=== PATIENT | male | born 1940 | race Caucasian/White ===

== ENCOUNTER 2019-02-01 20:05 | Inpatient (IN) | payer MEDICARE, OTHER ==
[2019-02-01] MEDS ORDERED: Midazolam HCl 2 mg/2 ml Vial ONE (20:44)
[2019-02-01] MEDS ORDERED: Fentanyl 100 MCG/2 ML VIAL ONE (20:44)
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
[2019-02-01] MEDS ORDERED: Lidocaine 1% (PF) 30 ML VIAL ONE (20:50)
--- NOTE | 2019-02-01 21:17 | RAD ---
Exam: Chest one view HISTORY:Pneumothorax. Subcutaneous emphysema. Comparison: 02/01/2019 FINDINGS: Interval placement of left-sided chest tube. Difficulty appreciating a left-sided hydropneumothorax. Persistent extensive subcutaneous emphysema. Stable pneumomediastinum. IMPRESSION: Left-sided chest tube placement.
[2019-02-01] MEDS ORDERED: Piperacillin/Tazobactam 4.5 GM VIAL ONE (21:21)
[2019-02-01] MEDS ORDERED: Ondansetron PF 4 MG/2 ML Vial IVP PRN (21:29)
[2019-02-01] MEDS ORDERED: Promethazine HCl 25 MG/ML VIAL IM PRN (21:29)
[2019-02-01] MEDS ORDERED: Dextrose 5% in Water 1,000 ML IV PRN (21:29)
[2019-02-01] MEDS ORDERED: Dextrose 50% Abboject 50 ML SYRINGE SLOW IVP PRN (21:29)
[2019-02-01] MEDS ORDERED: Famotidine/PF 20 mg/2ml Vial ONE (21:42)
[2019-02-01] MEDS ORDERED: Morphine 2 MG/ML SYRINGE ONE (21:42)
[2019-02-01] MEDS ORDERED: Famotidine/PF 20 mg/2ml Vial SLOW IVP SCH (21:45)
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
[2019-02-01] MEDS: Acetaminophen 1,000 MG in Premix Bag 1 BAG IVPB SCH (23:06)
[2019-02-01] MEDS: Sodium Chloride 0.9% 1,000 ML IV SCH (23:08)
[2019-02-01 23:32] LABS: Magnesium 1.9 mg/dL (1.6-2.6); Phosphorus 2.9 mg/dL (2.3-4.7)
[2019-02-02] MEDS: HumaLOG 300 UNITS/3 ML VIAL SC PRN ×3 (00:22→21:37)
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
[2019-02-02] MEDS: Piperacillin/Tazobactam 4.5 GM in Sodium Chloride 0.9% 100 ML IVPB SCH ×4 (02:50→21:32)
[2019-02-02] MEDS: Morphine 2 MG/ML SYRINGE SLOW IVP PRN ×2 (02:51→17:54)
[2019-02-02] MEDS: Acetaminophen 1,000 MG in Premix Bag 1 BAG IVPB SCH ×4 (04:08→21:59)
--- NOTE | 2019-02-02 07:25 | RAD ---
CHEST 1 VIEW: Date: 02/02/19 INDICATION: Pneumothorax. COMPARISON: Prior exam dated 02/01/19. FINDINGS: Small left apical hydropneumothorax appears to have resolved. No residual hydropneumothorax is eviden t. Small left pleural effusion remains. Right costophrenic angle is excluded. Mild pneumomediastinum persists. Dehiscence of midline sternotomy appears similar appearing. Extensive subcutaneous emphysem a involving the chest wall and neck base is stable. Cardiomegaly is stable. IMPRESSION: 1. No evidence of pneumothorax. Stable left-sided thoracostomy tube. 2. Persistent small left pleural effusion. 3. Stable cardiomegaly. 4. Stable subcutaneous emphysema. POS: BH
[2019-02-02 08:06] LABS: #Eosinphils 0.4 thou/uL (0.0-0.7); #Lymphocytes 1.7 thou/uL (1.20-3.40); #Monocytes 1.1 thou/uL (0.11-0.59); #Neutrophils 8.5 thou/uL (1.40-6.50); %Basophils 0.1 % (0.0-1.0); %Eosinophils 3.3 % (0.0-10.0); %Lymphocytes 14.3 % (21.0-51.0); %Monocytes 9.3 % (0.0-10.0); Hemoglobin 9.6 g/dL (14.0-18.0); Mean Corpuscular HGB CONC 32.9 g/dL (32.0-36.0); Mean Corpuscular Hemoglobin 30.2 pg (27.0-31.0); Mean Corpuscular Volume 91.8 fL (78.0-98.0); Mean Platelet Volume 7.3 fL (7.4-10.4); Platelet Count 318 thou/uL (130-400); RBC Distribution Width 13.8 % (11.5-14.5); Red Blood Cell (RBC) Count 3.16 mill/uL (4.70-6.10); White Blood Cell (WBC) Count 11.6 thou/uL (4.8-10.8)
[2019-02-02 08:22] LABS: Anion Gap 12 mmol/L (10-20); BUN (Urea Nitrogen) 16 mg/dL (8.4-25.7); Calc. Creatinine Clearance 121 mL/min (70-130); Calcium 8.7 mg/dL (7.8-10.44); Carbon Dioxide 25 mmol/L (23-31); Chloride 107 mmol/L (98-107); Estimated GFR-MDRD Greater than 90; Glucose 135 mg/dL (83-110); Magnesium 2.1 mg/dL (1.6-2.6); Phosphorus 3.6 mg/dL (2.3-4.7); Potassium 4.8 mmol/L (3.5-5.1); Sodium 139 mmol/L (136-145)
[2019-02-02] MEDS: Famotidine/PF 20 mg/2ml Vial SLOW IVP SCH ×2 (09:33→20:03)
[2019-02-02] MEDS: Sodium Chloride 0.9% 1,000 ML IV SCH (17:11)
[2019-02-02] MEDS ORDERED: Cyclobenzaprine 10 MG TAB PO PRN (18:22)
[2019-02-02] MEDS ORDERED: Ibuprofen 200 MG TAB PO SCH (18:30)
[2019-02-02] MEDS ORDERED: Cyclobenzaprine 10 MG TAB PO SCH (18:30)
[2019-02-02] MEDS: hydrALAZINE 20 MG/ML VIAL SLOW IVP PRN (18:37)
[2019-02-02] MEDS ORDERED: traMADol HCl 50 MG TAB PO SCH (18:45)
[2019-02-02 18:54] LABS: #Basophils 0.1 thou/uL (0.0-0.2); #Eosinphils 0.3 thou/uL (0.0-0.7); #Lymphocytes 1.6 thou/uL (1.20-3.40); #Neutrophils 9.6 thou/uL (1.40-6.50); %Basophils 0.6 % (0.0-1.0); %Eosinophils 2.3 % (0.0-10.0); %Lymphocytes 12.6 % (21.0-51.0); %Monocytes 7.8 % (0.0-10.0); %Neutrophils 76.8 % (42.0-75.0); Hemoglobin 9.9 g/dL (14.0-18.0); Mean Corpuscular HGB CONC 32.9 g/dL (32.0-36.0); Mean Corpuscular Hemoglobin 30.6 pg (27.0-31.0); Mean Corpuscular Volume 93.1 fL (78.0-98.0); Platelet Count 355 thou/uL (130-400); RBC Distribution Width 13.8 % (11.5-14.5); Red Blood Cell (RBC) Count 3.22 mill/uL (4.70-6.10); White Blood Cell (WBC) Count 12.6 thou/uL (4.8-10.8)
[2019-02-02] MEDS: Gabapentin 300 MG CAP PO SCH (20:02)
[2019-02-02] MEDS: Ibuprofen 200 MG TAB PO SCH (20:03)
[2019-02-02] MEDS: traMADol HCl 50 MG TAB PO PRN (23:46)
[2019-02-03] MEDS: Ibuprofen 200 MG TAB PO SCH ×3 (03:45→20:23)
[2019-02-03] MEDS: Acetaminophen 500 MG TAB PO SCH ×4 (03:45→21:07)
[2019-02-03] MEDS: Piperacillin/Tazobactam 4.5 GM in Sodium Chloride 0.9% 100 ML IVPB SCH ×4 (03:46→20:27)
[2019-02-03] MEDS: traMADol HCl 50 MG TAB PO PRN (04:28)
[2019-02-03 06:40] LABS: #Basophils 0.1 thou/uL (0.0-0.2); #Eosinphils 0.4 thou/uL (0.0-0.7); #Lymphocytes 1.4 thou/uL (1.20-3.40); #Neutrophils 7.1 thou/uL (1.40-6.50); %Basophils 0.5 % (0.0-1.0); %Eosinophils 4.2 % (0.0-10.0); %Lymphocytes 13.6 % (21.0-51.0); %Monocytes 10.1 % (0.0-10.0); %Neutrophils 71.5 % (42.0-75.0); Hemoglobin 9.4 g/dL (14.0-18.0); Mean Corpuscular HGB CONC 32.7 g/dL (32.0-36.0); Mean Corpuscular Hemoglobin 30.2 pg (27.0-31.0); Mean Corpuscular Volume 92.1 fL (78.0-98.0); Platelet Count 352 thou/uL (130-400); RBC Distribution Width 13.9 % (11.5-14.5); Red Blood Cell (RBC) Count 3.12 mill/uL (4.70-6.10); White Blood Cell (WBC) Count 9.9 thou/uL (4.8-10.8)
[2019-02-03 06:57] LABS: INR-International Normal Ratio 1.2; PTT 34.5 SEC (22.9-36.1); Prothrombin Time 15.4 SEC (12.0-14.7)
[2019-02-03 07:03] LABS: Anion Gap 14 mmol/L (10-20); BUN (Urea Nitrogen) 13 mg/dL (8.4-25.7); Calc. Creatinine Clearance 115 mL/min (70-130); Calcium 8.4 mg/dL (7.8-10.44); Carbon Dioxide 23 mmol/L (23-31); Chloride 105 mmol/L (98-107); Estimated GFR-MDRD Greater than 90; Glucose 137 mg/dL (83-110); Magnesium 1.9 mg/dL (1.6-2.6); Phosphorus 3.5 mg/dL (2.3-4.7); Potassium 3.8 mmol/L (3.5-5.1); Sodium 138 mmol/L (136-145)
--- NOTE | 2019-02-03 07:19 | RAD ---
CHEST 1 VIEW: Date: 02/03/19 INDICATION: Pneumothorax. COMPARISON: Prior exam dated 02/02/19. IMPRESSION: Left-sided thoracostomy tube is unchanged. No left-sided pneumothorax is evident. There is decreasing size of the left-sided pleural effusion. Pneumomediastinum appears mildly improved. Subcutaneous emp hysema persists. Right lung is clear. Cardiomegaly is stable. POS: BH
[2019-02-03] MEDS ORDERED: Furosemide 20 MG/2 ML VIAL SLOW IVP SCH (08:45)
[2019-02-03] MEDS: Amiodarone 200 MG TAB PO SCH ×2 (09:52→20:25)
[2019-02-03] MEDS: Tamsulosin HCl 0.4 MG CAP PO SCH ×2 (09:52→09:54)
[2019-02-03] MEDS: Atorvastatin Calcium 20 MG TAB PO SCH (09:52)
[2019-02-03] MEDS: Sotalol HCl 80 MG TAB PO SCH ×2 (09:53→20:25)
[2019-02-03] MEDS: Famotidine/PF 20 mg/2ml Vial SLOW IVP SCH ×2 (09:55→20:25)
[2019-02-03] MEDS: Gabapentin 300 MG CAP PO SCH ×3 (09:55→20:27)
[2019-02-03] MEDS: traMADol HCl 50 MG TAB PO SCH ×3 (09:56→20:26)
[2019-02-03] MEDS: HumaLOG 300 UNITS/3 ML VIAL SC PRN ×3 (13:00→21:01)
[2019-02-03] MEDS ORDERED: Digoxin 0.5 MG/2 ML AMP SLOW IVP SCH ×3 (16:45→20:15)
[2019-02-03 18:00] LABS: CKMB 2.8 ng/mL (0-6.6)
[2019-02-03] MEDS ORDERED: Magnesium 2 GM/50 ML 2 GM in Premix Bag 1 BAG IVPB SCH (18:00)
[2019-02-03] MEDS ORDERED: Albumin 25% 25 GM/100 ML BOT IVPB SCH (18:15)
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
[2019-02-03] MEDS: Amiodarone HCl 450 MG in Dextrose 5% in Water 250 ML IVPB SCH (19:39)
[2019-02-03] MEDS: Enoxaparin Sodium 40 MG/0.4 ML SYRINGE SC SCH (20:24)
[2019-02-03 20:39] LABS: Critical Call Chem Troponin I RESULT DECREASING
[2019-02-04] MEDS: Amiodarone HCl 450 MG in Dextrose 5% in Water 250 ML IVPB SCH ×2 (01:45→16:40)
[2019-02-04] MEDS: Piperacillin/Tazobactam 4.5 GM in Sodium Chloride 0.9% 100 ML IVPB SCH ×4 (03:13→21:05)
[2019-02-04] MEDS: Acetaminophen 500 MG TAB PO SCH ×4 (03:14→21:06)
[2019-02-04] MEDS: traMADol HCl 50 MG TAB PO SCH ×4 (03:15→21:05)
[2019-02-04] MEDS: Ibuprofen 200 MG TAB PO SCH ×3 (03:18→21:03)
[2019-02-04 04:39] LABS: INR-International Normal Ratio 1.3
[2019-02-04 04:40] LABS: PTT 41.1 SEC (22.9-36.1)
[2019-02-04 04:45] LABS: #Eosinphils 0.5 thou/uL (0.0-0.7); #Lymphocytes 1.7 thou/uL (1.20-3.40); #Monocytes 0.8 thou/uL (0.11-0.59); #Neutrophils 6.8 thou/uL (1.40-6.50); %Basophils 0.1 % (0.0-1.0); %Eosinophils 5.1 % (0.0-10.0); %Lymphocytes 17.5 % (21.0-51.0); %Monocytes 8.1 % (0.0-10.0); %Neutrophils 69.1 % (42.0-75.0); Hemoglobin 8.8 g/dL (14.0-18.0); Mean Corpuscular Hemoglobin 31.5 pg (27.0-31.0); Mean Corpuscular Volume 92.6 fL (78.0-98.0); Mean Platelet Volume 7.1 fL (7.4-10.4); Platelet Count 368 thou/uL (130-400); RBC Distribution Width 13.9 % (11.5-14.5); White Blood Cell (WBC) Count 9.9 thou/uL (4.8-10.8)
[2019-02-04 04:55] LABS: Anion Gap 12 mmol/L (10-20); BUN (Urea Nitrogen) 11 mg/dL (8.4-25.7); Calc. Creatinine Clearance 112 mL/min (70-130); Calcium 8.3 mg/dL (7.8-10.44); Carbon Dioxide 28 mmol/L (23-31); Chloride 103 mmol/L (98-107); Estimated GFR-MDRD Greater than 90; Glucose 137 mg/dL (83-110); Magnesium 2.1 mg/dL (1.6-2.6); Phosphorus 3.5 mg/dL (2.3-4.7); Potassium 3.7 mmol/L (3.5-5.1); Sodium 139 mmol/L (136-145)
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
[2019-02-04] MEDS ORDERED: Morphine 4 MG/ML VIAL ONE (08:28)
[2019-02-04] MEDS: Morphine 4 MG/ML VIAL SLOW IVP PRN (08:30)
--- NOTE | 2019-02-04 08:32 | RAD ---
CHEST 1 VIEW: Date: 02/04/19 HISTORY: Chest tube. Follow-up. COMPARISON: 02/03/19. FINDINGS: Cardiac silhouette is magnified by projection. Pulmonary vasculature remains slightly engorged. Media stinum is midline with postoperative changes and aortic calcification. Small amount of mediastinal ga s and extensive chest wall gas are again demonstrated. Left thoracostomy tubes remain in place. No si gnificant residual pneumothorax is apparent. property assessment monitor leads overlie the chest. IMPRESSION: Post-traumatic changes of the chest appear stable. POS: CET
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
[2019-02-04] MEDS: Amiodarone 200 MG TAB PO SCH ×2 (09:44→21:06)
[2019-02-04] MEDS ORDERED: Atorvastatin Calcium 40 MG TAB ONE (09:50)
[2019-02-04] MEDS ORDERED: Atorvastatin Calcium 20 MG TAB ONE (09:54)
[2019-02-04] MEDS ORDERED: Gabapentin 300 MG CAP ONE (09:55)
[2019-02-04] MEDS ORDERED: Piperacillin/Tazobactam 4.5 GM VIAL ONE (09:56)
[2019-02-04] MEDS ORDERED: Acetaminophen 500 MG TAB ONE (09:56)
[2019-02-04] MEDS: Gabapentin 300 MG CAP PO SCH ×3 (10:00→21:05)
[2019-02-04] MEDS: Atorvastatin Calcium 20 MG TAB PO SCH (10:00)
[2019-02-04] MEDS: Sotalol HCl 80 MG TAB PO SCH ×2 (10:29→21:04)
[2019-02-04] MEDS: Famotidine/PF 20 mg/2ml Vial SLOW IVP SCH ×2 (10:30→21:04)
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
[2019-02-04] MEDS: HumaLOG 300 UNITS/3 ML VIAL SC PRN (17:13)
[2019-02-04] MEDS: Enoxaparin Sodium 40 MG/0.4 ML SYRINGE SC SCH (21:04)
[2019-02-05] MEDS: Morphine 4 MG/ML VIAL SLOW IVP PRN ×3 (00:13→10:14)
[2019-02-05] MEDS: Piperacillin/Tazobactam 4.5 GM in Sodium Chloride 0.9% 100 ML IVPB SCH ×4 (03:23→20:40)
[2019-02-05] MEDS: traMADol HCl 50 MG TAB PO SCH ×4 (03:27→20:38)
[2019-02-05] MEDS: Acetaminophen 500 MG TAB PO SCH ×4 (03:27→21:07)
[2019-02-05] MEDS: Ibuprofen 200 MG TAB PO SCH ×3 (03:27→20:39)
[2019-02-05] MEDS ORDERED: Fentanyl 250 MCG/5 ML VIAL ONE (06:53)
[2019-02-05] MEDS ORDERED: Neomycin-Polymyxin 1 ML AMP ONE (06:57)
[2019-02-05] MEDS ORDERED: HYDROcodone/Acetaminophen 5/325 mg Tablet PO PRN (09:19)
[2019-02-05 09:44] LABS: #Eosinphils 0.8 thou/uL (0.0-0.7); #Lymphocytes 2.7 thou/uL (1.20-3.40); #Monocytes 1.2 thou/uL (0.11-0.59); #Neutrophils 13.2 thou/uL (1.40-6.50); %Basophils 0.1 % (0.0-1.0); %Eosinophils 4.6 % (0.0-10.0); %Lymphocytes 15.1 % (21.0-51.0); %Monocytes 6.4 % (0.0-10.0); %Neutrophils 73.8 % (42.0-75.0); Hemoglobin 9.9 g/dL (14.0-18.0); Mean Corpuscular HGB CONC 32.5 g/dL (32.0-36.0); Mean Corpuscular Hemoglobin 30.4 pg (27.0-31.0); Mean Corpuscular Volume 93.6 fL (78.0-98.0); Mean Platelet Volume 6.9 fL (7.4-10.4); Platelet Count 476 thou/uL (130-400); Red Blood Cell (RBC) Count 3.24 mill/uL (4.70-6.10); White Blood Cell (WBC) Count 17.9 thou/uL (4.8-10.8)
--- NOTE | 2019-02-05 09:48 | RAD ---
XR Chest 1 View Portable HISTORY: Post sternal reconstruction COMPARISON: 02/04/2019 FINDINGS: Interval postoperative changes of sternal reconstruction are seen. The left-sided chest tub e noted on the previous exam has been removed in the interim. A new tubing is seen in the left chest with tip in the projection of the left lower medial chest. There is subcutaneous emphysema in t he chest wall and extending into the neck. There is an opacity in the left lower lung base.
[2019-02-05] MEDS: hydrALAZINE 20 MG/ML VIAL SLOW IVP PRN (09:49)
[2019-02-05 09:56] LABS: Anion Gap 15 mmol/L (10-20); BUN (Urea Nitrogen) 11 mg/dL (8.4-25.7); Calc. Creatinine Clearance 105 mL/min (70-130); Calcium 8.4 mg/dL (7.8-10.44); Carbon Dioxide 24 mmol/L (23-31); Chloride 105 mmol/L (98-107); Estimated GFR-MDRD Greater than 90; Glucose 204 mg/dL (83-110); Potassium 4.1 mmol/L (3.5-5.1); Sodium 140 mmol/L (136-145)
[2019-02-05] MEDS ORDERED: ePHEDrine 50 MG/ML VIAL ONE (10:15)
[2019-02-05] MEDS ORDERED: Lidocaine 1% PF 5 ML VIAL ONE (10:15)
[2019-02-05] MEDS ORDERED: Dexamethasone 20 MG/5 ML VIAL ONE (10:15)
[2019-02-05] MEDS ORDERED: Ondansetron PF 4 MG/2 ML Vial ONE (10:15)
[2019-02-05] MEDS ORDERED: PROPOFOL 200 MG/20 ML VIAL ONE (10:15)
[2019-02-05] MEDS ORDERED: Rocuronium Bromide 10 MG/ML (10ML VIAL) ONE (10:15)
[2019-02-05] MEDS ORDERED: Glycopyrrolate 0.2 MG/ML 5 ML SYRINGE ONE (10:15)
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
[2019-02-05] MEDS: HumaLOG 300 UNITS/3 ML VIAL SC PRN ×4 (10:27→21:01)
[2019-02-05] MEDS: Famotidine/PF 20 mg/2ml Vial SLOW IVP SCH ×2 (11:46→20:40)
[2019-02-05] MEDS: HYDROcodone/Acetaminophen 5/325 mg Tablet PO PRN (11:53)
[2019-02-05] MEDS: Amiodarone 200 MG TAB PO SCH ×2 (11:53→20:39)
[2019-02-05] MEDS: Atorvastatin Calcium 20 MG TAB PO SCH (12:38)
[2019-02-05] MEDS: Sotalol HCl 80 MG TAB PO SCH ×2 (12:38→20:39)
[2019-02-05] MEDS: Gabapentin 300 MG CAP PO SCH ×3 (12:38→20:38)
[2019-02-05] MEDS: Tamsulosin HCl 0.4 MG CAP PO SCH (12:38)
[2019-02-05] MEDS: Enoxaparin Sodium 40 MG/0.4 ML SYRINGE SC SCH (20:40)
[2019-02-06] MEDS: HYDROcodone/Acetaminophen 5/325 mg Tablet PO PRN (00:38)
[2019-02-06] MEDS: traMADol HCl 50 MG TAB PO SCH ×4 (03:16→20:38)
[2019-02-06] MEDS: Ibuprofen 200 MG TAB PO SCH ×3 (03:16→20:37)
[2019-02-06] MEDS: Piperacillin/Tazobactam 4.5 GM in Sodium Chloride 0.9% 100 ML IVPB SCH ×4 (03:17→20:40)
[2019-02-06] MEDS: Acetaminophen 500 MG TAB PO SCH (03:20)
[2019-02-06 04:57] LABS: Anion Gap 13 mmol/L (10-20); BUN (Urea Nitrogen) 13 mg/dL (8.4-25.7); Calc. Creatinine Clearance 106 mL/min (70-130); Calcium 8.3 mg/dL (7.8-10.44); Carbon Dioxide 25 mmol/L (23-31); Chloride 104 mmol/L (98-107); Estimated GFR-MDRD Greater than 90; Glucose 196 mg/dL (83-110); Sodium 138 mmol/L (136-145)
[2019-02-06 05:14] LABS: Band 5 % (5-11); Hemoglobin 8.3 g/dL (14.0-18.0); Lymphocytes 10 % (21-51); MDiff Complete? YES; Mean Corpuscular HGB CONC 32.7 g/dL (32.0-36.0); Mean Corpuscular Hemoglobin 30.5 pg (27.0-31.0); Mean Corpuscular Volume 93.5 fL (78.0-98.0); Mean Platelet Volume 6.9 fL (7.4-10.4); Monocytes 3 % (0-10); Neutrophil 82 % (42-75); Platelet Count 470 thou/uL (130-400); Platelet Morphology Comment Appears Increased; RBC Distribution Width 13.7 % (11.5-14.5); White Blood Cell (WBC) Count 19.8 thou/uL (4.8-10.8)
[2019-02-06] MEDS: HumaLOG 300 UNITS/3 ML VIAL SC PRN ×4 (05:53→21:16)
--- NOTE | 2019-02-06 07:47 | RAD ---
EXAM: Single view of the chest HISTORY: Sternal reconstruction COMPARISON: 02/05/2019 FINDINGS: Single view of the chest shows an enlarged but stable cardiomediastinal silhouette. Patien t is status post sternotomy. There is no evidence of consolidation, mass, or pleural effusion. Degenerative changes and postsurgical changes are seen in the spine. IMPRESSION: Cardiomegaly without evidence of acute cardiopulmonary disease
[2019-02-06] MEDS ORDERED: Furosemide 40 MG/4 ML VIAL SLOW IVP SCH (09:00)
[2019-02-06] MEDS ORDERED: Labetalol HCl 100 MG/20 ML VIAL ONE (09:32)
[2019-02-06] MEDS: Amiodarone 200 MG TAB PO SCH ×2 (09:54→20:37)
[2019-02-06] MEDS: Atorvastatin Calcium 20 MG TAB PO SCH (09:54)
[2019-02-06] MEDS: Sotalol HCl 80 MG TAB PO SCH ×2 (09:54→20:39)
[2019-02-06] MEDS: Tamsulosin HCl 0.4 MG CAP PO SCH (09:54)
[2019-02-06] MEDS: Potassium Chloride 10 MEQ TAB PO SCH ×2 (09:54→18:11)
[2019-02-06] MEDS: Gabapentin 300 MG CAP PO SCH ×3 (09:54→20:39)
[2019-02-06] MEDS: Famotidine/PF 20 mg/2ml Vial SLOW IVP SCH ×2 (09:55→20:38)
[2019-02-06] MEDS: Furosemide 40 MG/4 ML VIAL SLOW IVP SCH (14:43)
--- NOTE | 2019-02-06 15:10 | EKG ---
Test Reason : Blood Pressure : / mmHG Vent. Rate : 147 BPM Atrial Rate : 138 BPM P-R Int : 000 ms QRS Dur : 090 ms QT Int : 280 ms P-R-T Axes : 000 005 125 degrees QTc Int : 438 ms Atrial fibrillation with rapid ventricular response Abnormal ECG Confirmed by TERESSA CHERY ([id number]) on 02/06/2019 3:09:56 PM Referred By: FANNIE Confirmed By:TERESSA CHERY
[2019-02-07] MEDS: Piperacillin/Tazobactam 4.5 GM in Sodium Chloride 0.9% 100 ML IVPB SCH ×4 (02:34→21:36)
[2019-02-07] MEDS: traMADol HCl 50 MG TAB PO SCH ×4 (03:27→21:37)
[2019-02-07] MEDS: Ibuprofen 200 MG TAB PO SCH ×3 (03:28→20:32)
[2019-02-07 05:04] LABS: #Basophils 0.1 thou/uL (0.0-0.2); #Eosinphils 1.6 thou/uL (0.0-0.7); #Lymphocytes 2.4 thou/uL (1.20-3.40); #Monocytes 1.4 thou/uL (0.11-0.59); #Neutrophils 12.9 thou/uL (1.40-6.50); %Basophils 0.3 % (0.0-1.0); %Eosinophils 8.9 % (0.0-10.0); %Lymphocytes 13.2 % (21.0-51.0); %Monocytes 7.4 % (0.0-10.0); %Neutrophils 70.1 % (42.0-75.0); Hemoglobin 8.9 g/dL (14.0-18.0); Mean Corpuscular HGB CONC 33.8 g/dL (32.0-36.0); Mean Corpuscular Hemoglobin 31.4 pg (27.0-31.0); Mean Platelet Volume 6.6 fL (7.4-10.4); Platelet Count 504 thou/uL (130-400); RBC Distribution Width 13.7 % (11.5-14.5); Red Blood Cell (RBC) Count 2.83 mill/uL (4.70-6.10); White Blood Cell (WBC) Count 18.4 thou/uL (4.8-10.8)
[2019-02-07] MEDS: HumaLOG 300 UNITS/3 ML VIAL SC PRN ×2 (05:16→12:13)
[2019-02-07] MEDS: Furosemide 40 MG/4 ML VIAL SLOW IVP SCH ×2 (05:16→14:39)
[2019-02-07] MEDS ORDERED: Metolazone 5 MG TAB PO SCH (06:30)
[2019-02-07] MEDS: Famotidine/PF 20 mg/2ml Vial SLOW IVP SCH ×2 (08:31→21:36)
[2019-02-07] MEDS: Atorvastatin Calcium 20 MG TAB PO SCH (08:33)
[2019-02-07] MEDS: Potassium Chloride 10 MEQ TAB PO SCH ×2 (08:33→17:35)
[2019-02-07] MEDS: Tamsulosin HCl 0.4 MG CAP PO SCH (08:33)
[2019-02-07] MEDS: Amiodarone 200 MG TAB PO SCH ×2 (08:33→21:36)
[2019-02-07] MEDS: Gabapentin 300 MG CAP PO SCH ×3 (08:33→21:36)
[2019-02-07] MEDS: Sotalol HCl 80 MG TAB PO SCH ×2 (10:33→21:52)
[2019-02-07] MEDS ORDERED: Dextrose 50% Abboject 50 ML SYRINGE SLOW IVP PRN (15:35)
[2019-02-07] MEDS ORDERED: Dextrose 5% in Water 1,000 ML IV PRN (15:35)
[2019-02-07] MEDS: Insulin Regular 300 UNITS/3 ML VIAL SC PRN ×2 (17:42→21:51)
[2019-02-08] MEDS: Piperacillin/Tazobactam 4.5 GM in Sodium Chloride 0.9% 100 ML IVPB SCH ×2 (03:20→08:25)
[2019-02-08] MEDS: traMADol HCl 50 MG TAB PO SCH ×2 (03:25→09:17)
[2019-02-08] MEDS: Ibuprofen 200 MG TAB PO SCH ×3 (03:44→20:57)
[2019-02-08] MEDS: Furosemide 40 MG/4 ML VIAL SLOW IVP SCH ×2 (05:37→13:54)
[2019-02-08] MEDS: Insulin Regular 300 UNITS/3 ML VIAL SC PRN ×4 (05:42→21:01)
[2019-02-08 06:20] LABS: #Eosinphils 1.2 thou/uL (0.0-0.7); #Lymphocytes 2.8 thou/uL (1.20-3.40); #Monocytes 1.4 thou/uL (0.11-0.59); %Basophils 0.1 % (0.0-1.0); %Eosinophils 6.9 % (0.0-10.0); %Lymphocytes 16.1 % (21.0-51.0); %Neutrophils 68.9 % (42.0-75.0); Hemoglobin 8.8 g/dL (14.0-18.0); Mean Corpuscular HGB CONC 32.9 g/dL (32.0-36.0); Mean Corpuscular Volume 91.3 fL (78.0-98.0); Mean Platelet Volume 6.9 fL (7.4-10.4); Platelet Count 505 thou/uL (130-400); RBC Distribution Width 13.8 % (11.5-14.5); Red Blood Cell (RBC) Count 2.92 mill/uL (4.70-6.10); White Blood Cell (WBC) Count 17.4 thou/uL (4.8-10.8)
[2019-02-08 06:28] LABS: Anion Gap 13 mmol/L (10-20); BUN (Urea Nitrogen) 23 mg/dL (8.4-25.7); Calc. Creatinine Clearance 71 mL/min (70-130); Calcium 8.9 mg/dL (7.8-10.44); Carbon Dioxide 33 mmol/L (23-31); Chloride 98 mmol/L (98-107); Estimated GFR-MDRD 58; Glucose 164 mg/dL (83-110); Potassium 3.5 mmol/L (3.5-5.1); Sodium 140 mmol/L (136-145)
[2019-02-08] MEDS ORDERED: Potassium Chloride 20 MEQ TAB PO SCH (08:00)
[2019-02-08] MEDS: Gabapentin 300 MG CAP PO SCH ×3 (08:23→20:57)
[2019-02-08] MEDS: Atorvastatin Calcium 20 MG TAB PO SCH (08:23)
[2019-02-08] MEDS: Famotidine 20 MG TAB PO SCH ×2 (08:23→20:56)
[2019-02-08] MEDS: Amiodarone 200 MG TAB PO SCH ×2 (08:23→20:56)
[2019-02-08] MEDS: Sotalol HCl 80 MG TAB PO SCH ×2 (08:24→23:28)
[2019-02-08] MEDS: Sulfameth/Trimethoprim DS 800-160mg TAB PO SCH ×2 (08:25→20:56)
[2019-02-08] MEDS: Tamsulosin HCl 0.4 MG CAP PO SCH (08:25)
[2019-02-08] MEDS ORDERED: Acetaminophen/Codeine 30-300mg Tablet PO PRN ×2 (14:14)
[2019-02-09] MEDS: Ibuprofen 200 MG TAB PO SCH ×3 (04:58→20:43)
[2019-02-09] MEDS: Insulin Regular 300 UNITS/3 ML VIAL SC PRN ×2 (05:04→10:39)
[2019-02-09] MEDS: Glimepiride 4 MG TAB PO SCH (08:42)
[2019-02-09] MEDS: Sulfameth/Trimethoprim DS 800-160mg TAB PO SCH ×2 (08:42→20:44)
[2019-02-09] MEDS: Sotalol HCl 80 MG TAB PO SCH ×2 (08:42→20:44)
[2019-02-09] MEDS: Amiodarone 200 MG TAB PO SCH ×2 (08:42→20:43)
[2019-02-09] MEDS: Tamsulosin HCl 0.4 MG CAP PO SCH (08:42)
[2019-02-09] MEDS: Gabapentin 300 MG CAP PO SCH ×3 (08:43→20:44)
[2019-02-09] MEDS: Famotidine 20 MG TAB PO SCH ×2 (08:43→20:44)
[2019-02-09] MEDS: Atorvastatin Calcium 20 MG TAB PO SCH (08:43)
[2019-02-10] MEDS: Ibuprofen 200 MG TAB PO SCH ×3 (03:34→21:12)
[2019-02-10] MEDS: Insulin Regular 300 UNITS/3 ML VIAL SC PRN ×3 (05:52→17:02)
[2019-02-10] MEDS: Glimepiride 4 MG TAB PO SCH (08:36)
[2019-02-10] MEDS: Amiodarone 200 MG TAB PO SCH ×2 (08:36→21:16)
[2019-02-10] MEDS: Tamsulosin HCl 0.4 MG CAP PO SCH (08:37)
[2019-02-10] MEDS: Sotalol HCl 80 MG TAB PO SCH ×2 (08:37→21:16)
[2019-02-10] MEDS: Famotidine 20 MG TAB PO SCH ×2 (08:37→21:13)
[2019-02-10] MEDS: Gabapentin 300 MG CAP PO SCH ×3 (08:37→21:13)
[2019-02-10] MEDS: Sulfameth/Trimethoprim DS 800-160mg TAB PO SCH ×2 (08:37→21:14)
[2019-02-10] MEDS: Atorvastatin Calcium 20 MG TAB PO SCH (08:37)
[2019-02-11] MEDS: Ibuprofen 200 MG TAB PO SCH ×3 (03:32→20:36)
[2019-02-11] MEDS: Insulin Regular 300 UNITS/3 ML VIAL SC PRN ×4 (05:48→22:16)
[2019-02-11] MEDS: Sulfameth/Trimethoprim DS 800-160mg TAB PO SCH ×2 (08:11→20:37)
[2019-02-11] MEDS: Sotalol HCl 80 MG TAB PO SCH ×2 (08:11→20:35)
[2019-02-11] MEDS: Tamsulosin HCl 0.4 MG CAP PO SCH (08:11)
[2019-02-11] MEDS: Atorvastatin Calcium 20 MG TAB PO SCH (08:12)
[2019-02-11] MEDS: Gabapentin 300 MG CAP PO SCH ×3 (08:12→20:37)
[2019-02-11] MEDS: Famotidine 20 MG TAB PO SCH ×2 (08:12→20:37)
[2019-02-11] MEDS: Glimepiride 4 MG TAB PO SCH (08:12)
[2019-02-11] MEDS: Amiodarone 200 MG TAB PO SCH ×2 (08:12→20:36)
[2019-02-11 13:07] VITALS: BMI 29.0
[2019-02-12] MEDS: Ibuprofen 200 MG TAB PO SCH ×2 (04:15→12:38)
[2019-02-12] MEDS: Gabapentin 300 MG CAP PO SCH ×2 (07:45→14:43)
[2019-02-12] MEDS: Glimepiride 4 MG TAB PO SCH (07:45)
[2019-02-12] MEDS: Famotidine 20 MG TAB PO SCH (07:45)
[2019-02-12] MEDS: Amiodarone 200 MG TAB PO SCH (07:45)
[2019-02-12] MEDS: Sulfameth/Trimethoprim DS 800-160mg TAB PO SCH (07:46)
[2019-02-12] MEDS: Sotalol HCl 80 MG TAB PO SCH (07:46)
[2019-02-12] MEDS: Atorvastatin Calcium 20 MG TAB PO SCH (07:46)
[2019-02-12] MEDS: Tamsulosin HCl 0.4 MG CAP PO SCH (07:46)
[2019-02-12] MEDS: Insulin Regular 300 UNITS/3 ML VIAL SC PRN (10:55)
[2019-02-12 12:10] VITALS: TEMP 97.8
[2019-02-12 13:44] VITALS: BP 103/44
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
--- NOTE | 2019-02-13 16:00 | ULT ---
LOWER EXTREMITY ARTERIAL EVALUATION 02/11/19 Examination of the right leg reveals dampened femoral artery waveforms but well preserved popliteal w aveforms. Pedal waveforms are diminished and the ankle-arm index is 0.71. Toe-brachial index is abnor mal at 0.4. Left lower extremity also demonstrates dampened femoral, popliteal, and pedal waveforms. Ankle-arm in dex calculates to 0.76 in the dorsalis pedis distribution and due to a noncompressible vessel the pos terior tibial ankle-arm index could not be calculated. Toe-brachial index is 0.22. This study is consistent with multilevel vascular disease bilaterally and could be consistent with po rafael healing wound.
== END 2019-02-12 17:17 | DRG 166 ==
LOC: ERS 20:05 → CCU 20:47 → 2SE 02-09 09:29
PROVIDERS: ADMIT Surgery; ATTEND Surgery
PROC: 0W9B00Z Drainage of Left Pleural Cavity with Drainage Device, Open Approach (ICD-10-PCS; principal; 2019-02-01)
PROC: 0PQ00ZZ Repair Sternum, Open Approach (ICD-10-PCS; 2019-02-05)
DX: S27.0XXA Traumatic pneumothorax, initial encounter (principal); J18.9 Pneumonia, unspecified organism; S22.20XA Unspecified fracture of sternum, initial encounter for closed fracture; J90 Pleural effusion, not elsewhere classified; T81.32XA Disruption of internal operation (surgical) wound, not elsewhere classified, initial encounter; I25.10 Atherosclerotic heart disease of native coronary artery without angina pectoris; I48.2 Chronic atrial fibrillation; I10 Essential (primary) hypertension; N40.0 Benign prostatic hyperplasia without lower urinary tract symptoms; E11.9 Type 2 diabetes mellitus without complications; E78.5 Hyperlipidemia, unspecified; T79.7XXA Traumatic subcutaneous emphysema, initial encounter; I48.91 Unspecified atrial fibrillation; Z95.1 Presence of aortocoronary bypass graft; Z90.49 Acquired absence of other specified parts of digestive tract; Z87.891 Personal history of nicotine dependence; Z79.82 Long term (current) use of aspirin; V49.9XXA Car occupant (driver) (passenger) injured in unspecified traffic accident, initial encounter; Y83.2 Surgical operation with anastomosis, bypass or graft as the cause of abnormal reaction of the patient, or of later complication, without mention of misadventure at the time of the procedure
CPT/HCPCS: 36415; 36416; 71045; 71250; 80048; 82533; 82550; 82553; 83605; 83735; 83880; 84100; 84484; 85025; 85610; 85730; 87040; 87070; 87205; 93005; 93010; 93922; 94640; 94760; 96365; 96375; G0390; J0131; J0282; J0360; J1100; J1160; J1650; J1815; J1940; J2001; J2250; J2270; J2405; J2543; J2704; J3010; J3475; J3490; J7070; J7620; P9047; S0028

== ENCOUNTER 2019-03-16 22:12 | Inpatient (IN) | payer MEDICARE, OTHER ==
[2019-03-16 22:50] LABS: INR-International Normal Ratio 1.1; Prothrombin Time 14.4 SEC (12.0-14.7)
[2019-03-16 22:51] LABS: PTT 28.8 SEC (22.9-36.1)
--- NOTE | 2019-03-16 22:52 | RAD ---
XR Chest 1 View Portable History: Chest pain Comparison: Radiograph February 18, 2019 Findings: Moderate left and small right effusion. Heart size is enlarged. Mild pulmonary edema. No pn eumothorax. Impression: Findings of congestive heart failure with cardiomegaly, effusions, and pulmonary edema.
[2019-03-16 23:08] LABS: Hemoglobin 9.6 g/dL (14.0-18.0); Mean Corpuscular HGB CONC 30.6 g/dL (32.0-36.0); Mean Platelet Volume 8.2 fL (7.4-10.4); Platelet Count 362 thou/uL (130-400); RBC Distribution Width 19.2 % (11.5-14.5); Red Blood Cell (RBC) Count 2.91 mill/uL (4.70-6.10); White Blood Cell (WBC) Count 13.1 thou/uL (4.8-10.8)
[2019-03-16 23:13] LABS: ALT (SGPT) 9 U/L (8-55); AST (SGOT) 10 U/L (5-34); Albumin 3.6 g/dL (3.4-4.8); Alkaline Phosphatase 86 U/L (40-150); Anion Gap 13 mmol/L (10-20); BUN (Urea Nitrogen) 9 mg/dL (8.4-25.7); Bilirubin, Total 0.8 mg/dL (0.2-1.2); Calc. Creatinine Clearance 0 mL/min (70-130); Calcium 9.1 mg/dL (7.8-10.44); Carbon Dioxide 27 mmol/L (23-31); Chloride 105 mmol/L (98-107); Estimated GFR-MDRD 89; Globulin 2.6 g/dL (2.4-3.5); Glucose 146 mg/dL (83-110); Potassium 3.2 mmol/L (3.5-5.1); Protein, Total 6.2 g/dL (5.8-8.1); Sodium 142 mmol/L (136-145)
[2019-03-16 23:26] LABS: #Eosinphils 1.2 thou/uL (0.0-0.7); #Lymphocytes 2.4 thou/uL (1.20-3.40); #Neutrophils 8.5 thou/uL (1.40-6.50); %Basophils 0.2 % (0.0-1.0); %Eosinophils 8.8 % (0.0-10.0); %Lymphocytes 18.4 % (21.0-51.0); %Monocytes 7.7 % (0.0-10.0); %Neutrophils 64.9 % (42.0-75.0); MDiff Complete? YES; Macrocytosis SLIGHT = 6-15 cells (100X) (0-5/hpf)
[2019-03-16 23:36] LABS: CKMB 2.4 ng/mL (0-6.6)
[2019-03-17] MEDS ORDERED: Enoxaparin Sodium 100 MG/ML SYRINGE ONE (00:46)
[2019-03-17 02:05] LABS: Troponin I 1.939 ng/mL (< 0.028)
[2019-03-17] MEDS ORDERED: Potassium Chloride 20 MEQ TAB PO SCH ×2 (03:15→09:15)
[2019-03-17] MEDS ORDERED: Furosemide 40 MG/4 ML VIAL SLOW IVP SCH (03:15)
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
[2019-03-17 04:58] LABS: Anion Gap 11 mmol/L (10-20); BUN (Urea Nitrogen) 9 mg/dL (8.4-25.7); Calc. Creatinine Clearance 109 mL/min (70-130); Calcium 8.5 mg/dL (7.8-10.44); Carbon Dioxide 27 mmol/L (23-31); Cardiac Risk 4.1 (Less than 4.5); Chloride 106 mmol/L (98-107); Cholesterol 128 mg/dl (< 200 Desired); Estimated GFR-MDRD Greater than 90; Glucose 158 mg/dL (83-110); HDL Cholesterol 31 mg/dL (>60 Neg Risk); LDL Cholesterol, Calculated 77 mg/dL; Potassium 3.3 mmol/L (3.5-5.1); Sodium 141 mmol/L (136-145); Triglycerides 102 mg/dL (Less than 150)
[2019-03-17 05:07] LABS: Troponin I 5.283 ng/mL (< 0.028)
[2019-03-17] MEDS: Furosemide 40 MG/4 ML VIAL SLOW IVP SCH ×2 (07:24→13:45)
[2019-03-17] MEDS: Aspirin 81 mg Enteric Coated Tablet PO SCH (08:42)
[2019-03-17] MEDS: Potassium Chloride 20 MEQ TAB PO SCH ×2 (08:42→17:28)
[2019-03-17] MEDS ORDERED: Acetaminophen/Codeine 30-300mg Tablet PO PRN (11:52)
[2019-03-17] MEDS ORDERED: Enoxaparin Sodium 100 MG/ML SYRINGE SC SCH (13:30)
[2019-03-17] MEDS: Gabapentin 300 MG CAP PO SCH ×2 (13:45→20:31)
--- NOTE | 2019-03-17 13:53 | PDOC.PN ---
- Subjective Encounter Start Date: 03/17/19 Encounter Start Time: 12:00 Subjective: pt up in bed denies any chest pain or sob - Objective Vital Signs & Weight: Vital Signs (12 hours) Temp Pulse Resp BP Pulse Ox 03/17/19 11:05 98.0 F 74 24 H 158/73 H 99 03/17/19 08:00 98 03/17/19 07:30 98.2 F 73 18 144/65 H 98 03/17/19 04:00 76 20 98 03/17/19 03:07 98 Weight Admit Weight 215 lb 14.4 oz Weight 215 lb 14.4 oz I&O: 03/16/19 03/17/19 03/18/19 06:59 06:59 06:59 Intake Total 240 Output Total 1150 Balance -910 Result Diagrams: 03/16/19 22:34 03/17/19 04:25 Phys Exam - Physical Examination mild crackles to bases Cardiovascular: RRR, no significant murmur, no rub, gallop, irregular Gastrointestinal: soft, non-tender, no distention, positive bowel sounds Musculoskeletal: no edema, pulses present, edema present Neurological: non-focal, normal sensation, moves all 4 limbs Dx/Plan (1) NSTEMI (non-ST elevated myocardial infarction) Code(s): I21.4 - NON-ST ELEVATION (NSTEMI) MYOCARDIAL INFARCTION Status: Acute (2) Chest pain Code(s): R07.9 - CHEST PAIN, UNSPECIFIED Status: Acute (3) Elevated troponin Code(s): R74.8 - ABNORMAL LEVELS OF OTHER SERUM ENZYMES Status: Acute (4) Elevated troponin Code(s): R74.8 - ABNORMAL LEVELS OF OTHER SERUM ENZYMES Status: Acute - Plan pt s/p CABG about a month ago, comes in with sob. His trops are elevated -: will continue lovonox for now. cardiology consulted, will also consult or -: talk with CV surgeon. He is not hypoxic unlikely to be PE however if his -: symmptoms persist will get cta chest -: He has been eating out and has elevated bnp will conitnue lasix * . Review of Systems - Review of Systems Respiratory: Shortness of Breath Cardiovascular: chest pain Gastrointestinal: negative: Nausea, Vomiting, Abdominal Pain, Diarrhea, Constipation, Melena, Hematochezia, Other Genitourinary: negative: Dysuria, Frequency, Incontinence, Hematuria, Retention , Other - Medications/Allergies Allergies/Adverse Reactions: Allergies Allergy/AdvReac Type Severity Reaction Status Date / Time No Known Drug Allergies Allergy Verified 03/17/19 02:24 Medications: Current Medications Acetaminophen/Codeine Phosphate (Tylenol #3) 2 tab PO Q6H PRN PRN Reason: Pain Albuterol/Ipratropium (Duoneb) 3 ml NEB [id number] DELANEY Albuterol/Ipratropium (Duoneb) 3 ml NEB NOW [facility] Stop: 03/17/19 16:00 Aspirin (Ecotrin) 81 mg PO DAILY [facility] Last Admin: 03/17/19 08:42 Dose: 81 mg Atorvastatin Calcium (Lipitor) 20 mg PO HS [facility] Enoxaparin Sodium (Lovenox) 100 mg SC 0900,2100 [facility] Enoxaparin Sodium (Lovenox) 100 mg SC NOW [facility] Stop: 03/17/19 15:30 Last Admin: 03/17/19 13:44 Dose: 100 mg Furosemide (Lasix) 40 mg SLOW IVP 0600,1400 [facility] Last Admin: 03/17/19 13:45 Dose: 40 mg Gabapentin (Neurontin) 300 mg PO TID [facility] Last Admin: 03/17/19 13:45 Dose: 300 mg Potassium Chloride (K-Dur) 20 meq PO BID-[facility] Last Admin: 03/17/19 08:42 Dose: 20 meq Sotalol HCl (Betapace) 80 mg PO BID [facility] Tamsulosin HCl (Flomax) 0.4 mg PO DAILY [facility]
[2019-03-17 14:46] LABS: Troponin I 14.508 ng/mL (< 0.028)
[2019-03-17] MEDS: Atorvastatin Calcium 20 MG TAB PO SCH (20:31)
[2019-03-17] MEDS: Sotalol HCl 80 MG TAB PO SCH (20:31)
[2019-03-17] MEDS: Enoxaparin Sodium 100 MG/ML SYRINGE SC SCH (20:34)
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
[2019-03-18] MEDS: Furosemide 40 MG/4 ML VIAL SLOW IVP SCH ×2 (05:59→14:48)
[2019-03-18 06:44] LABS: #Basophils 0.1 thou/uL (0.0-0.2); #Eosinphils 0.3 thou/uL (0.0-0.7); #Lymphocytes 2.4 thou/uL (1.20-3.40); #Monocytes 1.5 thou/uL (0.11-0.59); #Neutrophils 9.7 thou/uL (1.40-6.50); %Basophils 0.6 % (0.0-1.0); %Eosinophils 2.5 % (0.0-10.0); %Lymphocytes 16.9 % (21.0-51.0); %Monocytes 10.7 % (0.0-10.0); %Neutrophils 69.3 % (42.0-75.0); Anisocytosis SLIGHT = 6-15 cells (100X) (0-5/hpf); Hemoglobin 8.5 g/dL (14.0-18.0); MDiff Complete? YES; Macrocytosis SLIGHT = 6-15 cells (100X) (0-5/hpf); Mean Corpuscular HGB CONC 31.3 g/dL (32.0-36.0); Mean Corpuscular Hemoglobin 33.8 pg (27.0-31.0); Mean Platelet Volume 7.5 fL (7.4-10.4); Platelet Count 439 thou/uL (130-400); RBC Distribution Width 19.7 % (11.5-14.5); Red Blood Cell (RBC) Count 2.51 mill/uL (4.70-6.10); White Blood Cell (WBC) Count 13.9 thou/uL (4.8-10.8)
[2019-03-18] MEDS: Gabapentin 300 MG CAP PO SCH ×3 (08:33→20:35)
[2019-03-18] MEDS: Tamsulosin HCl 0.4 MG CAP PO SCH (08:34)
[2019-03-18] MEDS: Potassium Chloride 20 MEQ TAB PO SCH ×2 (08:34→18:00)
[2019-03-18] MEDS: Aspirin 81 mg Enteric Coated Tablet PO SCH (08:34)
[2019-03-18] MEDS: Sotalol HCl 80 MG TAB PO SCH ×2 (08:35→20:35)
[2019-03-18] MEDS: Enoxaparin Sodium 100 MG/ML SYRINGE SC SCH ×2 (10:57→20:35)
[2019-03-18 14:11] LABS: Bilirubin Negative (Negative); Blood, Urine Negative (Negative); Clarity CLOUDY (Clear); Glucose, Urine (Dipstick) Negative (Negative); Leukocyte Large (Negative); Nitrite Negative (Negative); Protein, Urine (Dipstick) Negative (Neg-Trace); Specific Gravity, Urine 1.013 (1.002-1.036)
[2019-03-18 14:16] LABS: Bacteria/HPF 1+ HPF (None Seen); Hyaline Casts/LPF 0-3 HYALINE CAST LPF (0-3 Hyaline); RBC/HPF 0-3 HPF (0-3); Squamous Epithelial None Seen HPF (0-3)
[2019-03-18 14:33] LABS: Yeast-AUWi Flag 33.3 (0-25.0)
[2019-03-18 14:34] LABS: Yeast-All Forms 1+ HPF (None Seen)
[2019-03-18 14:36] LABS: Urine Culture Reflex Yes Yes
[2019-03-18] MEDS: Sodium Chloride 0.9% 500 ML IV SCH ×2 (15:45→22:11)
--- NOTE | 2019-03-18 17:26 | PDOC.PN ---
- Subjective Encounter Start Date: 03/18/19 Encounter Start Time: 10:15 Subjective: pt up in bed no complains - Objective Vital Signs & Weight: Vital Signs (12 hours) Temp Pulse Resp BP Pulse Ox 03/18/19 15:25 98.5 F 68 20 87/48 L 96 03/18/19 14:32 71 18 97 03/18/19 11:54 99.4 F 68 18 115/56 L 94 L 03/18/19 10:56 67 16 03/18/19 08:35 78 03/18/19 07:45 96 03/18/19 07:44 78 16 96 03/18/19 07:10 99.2 F 78 20 122/79 97 Weight Admit Weight 215 lb 14.4 oz Weight 206 lb 6.4 oz I&O: 03/17/19 03/18/19 03/19/19 06:59 06:59 06:59 Intake Total 240 240 Output Total 1150 1700 1100 Balance -910 -1460 -1100 Result Diagrams: 03/18/19 04:49 03/17/19 04:25 Dx/Plan (1) NSTEMI (non-ST elevated myocardial infarction) Code(s): I21.4 - NON-ST ELEVATION (NSTEMI) MYOCARDIAL INFARCTION Status: Acute (2) Chest pain Code(s): R07.9 - CHEST PAIN, UNSPECIFIED Status: Acute (3) Elevated troponin Code(s): R74.8 - ABNORMAL LEVELS OF OTHER SERUM ENZYMES Status: Acute (4) Elevated troponin Code(s): R74.8 - ABNORMAL LEVELS OF OTHER SERUM ENZYMES Status: Acute - Plan pt to under go a cath in am -: will continue lovonox * . Review of Systems - Review of Systems Respiratory: negative: Cough, Dry, Shortness of Breath, Hemoptysis, SOB with Excertion, Pleuritic Pain, Sputum, Wheezing Cardiovascular: negative: chest pain, palpitations, orthopnea, paroxysmal nocturnal dyspnea, edema, light headedness, other Gastrointestinal: negative: Nausea, Vomiting, Abdominal Pain, Diarrhea, Constipation, Melena, Hematochezia, Other - Medications/Allergies Allergies/Adverse Reactions: Allergies Allergy/AdvReac Type Severity Reaction Status Date / Time No Known Drug Allergies Allergy Verified 03/17/19 02:24 Medications: Current Medications Acetaminophen/Codeine Phosphate (Tylenol #3) 2 tab PO Q6H PRN PRN Reason: Pain Albuterol/Ipratropium (Duoneb) 3 ml NEB [id number] [facility] Last Admin: 03/18/19 14:32 Dose: 3 ml Aspirin (Ecotrin) 81 mg PO DAILY [facility] Last Admin: 03/18/19 08:34 Dose: 81 mg Atorvastatin Calcium (Lipitor) 20 mg PO HS [facility] Last Admin: 03/17/19 20:31 Dose: 20 mg Enoxaparin Sodium (Lovenox) 100 mg SC 0900,2100 [facility] Last Admin: 03/18/19 10:57 Dose: 100 mg Furosemide (Lasix) 40 mg SLOW IVP 0600,1400 [facility] Last Admin: 03/18/19 14:48 Dose: 40 mg Gabapentin (Neurontin) 300 mg PO TID [facility] Last Admin: 03/18/19 14:48 Dose: 300 mg Sodium Chloride (Normal Saline 0.9%) 500 mls @ 100 mls/hr IV .Q5H [facility] Last Admin: 03/18/19 15:45 Dose: 500 mls Potassium Chloride (K-Dur) 20 meq PO BID-WM [facility] Last Admin: 03/18/19 08:34 Dose: 20 meq Sotalol HCl (Betapace) 80 mg PO BID [facility] Tamsulosin HCl (Flomax) 0.4 mg PO DAILY [facility] Last Admin: 03/18/19 08:34 Dose: 0.4 mg
[2019-03-18] MEDS: cefTRIAXone\\ROCEPHIN 1 GM in Sodium Chloride 0.9% 100 ML IVPB SCH (18:00)
[2019-03-18] MEDS ORDERED: Communication Order-Pharmacy FS SCH (19:45)
[2019-03-18] MEDS: Atorvastatin Calcium 20 MG TAB PO SCH (20:35)
[2019-03-19] MEDS: Aspirin 81 mg Enteric Coated Tablet PO SCH (05:47)
[2019-03-19] MEDS: Tamsulosin HCl 0.4 MG CAP PO SCH (05:47)
[2019-03-19] MEDS: Gabapentin 300 MG CAP PO SCH ×3 (05:47→21:09)
[2019-03-19] MEDS: Sotalol HCl 80 MG TAB PO SCH ×2 (05:47→21:08)
[2019-03-19] MEDS ORDERED: Heparin 10,000 UNITS/1 ML VIAL ONE (07:57)
[2019-03-19] MEDS: Potassium Chloride 20 MEQ TAB PO SCH (08:25)
[2019-03-19] MEDS ORDERED: Lidocaine 1% (PF) 30 ML VIAL ONE (08:35)
[2019-03-19] MEDS ORDERED: Fentanyl 100 MCG/2 ML VIAL ONE (08:50)
[2019-03-19] MEDS ORDERED: Midazolam HCl 2 mg/2 ml Vial ONE ×2 (08:50→10:15)
[2019-03-19] MEDS ORDERED: Iopamidol 370 76% 100 ML VIAL ONE (09:08)
[2019-03-19] MEDS ORDERED: Iopamidol 370 76% 50 ML VIAL FS ONE (09:08)
[2019-03-19] MEDS ORDERED: Bivalirudin 250 MG VIAL ONE ×2 (09:32→10:38)
[2019-03-19] MEDS ORDERED: Clopidogrel Bisulfate 300 MG TAB ONE (09:45)
[2019-03-19] MEDS ORDERED: Ondansetron PF 4 MG/2 ML Vial ONE (10:11)
[2019-03-19] MEDS ORDERED: Nitroglycerin 0.4 MG TAB (25 Tab Bottle) SL PRN (11:51)
[2019-03-19] MEDS ORDERED: Sodium Chloride 0.9% 1,000 ML IV SCH (12:00)
[2019-03-19] MEDS: cefTRIAXone\\ROCEPHIN 1 GM in Sodium Chloride 0.9% 100 ML IVPB SCH (18:02)
[2019-03-19] MEDS: Atorvastatin Calcium 40 MG TAB PO SCH (21:09)
[2019-03-20 05:34] LABS: #Basophils 0.1 thou/uL (0.0-0.2); #Eosinphils 0.4 thou/uL (0.0-0.7); #Lymphocytes 1.6 thou/uL (1.20-3.40); #Neutrophils 7.9 thou/uL (1.40-6.50); %Basophils 0.6 % (0.0-1.0); %Lymphocytes 14.2 % (21.0-51.0); %Monocytes 8.7 % (0.0-10.0); %Neutrophils 72.5 % (42.0-75.0); Hemoglobin 7.6 g/dL (14.0-18.0); Mean Corpuscular HGB CONC 31.7 g/dL (32.0-36.0); Mean Corpuscular Hemoglobin 34.8 pg (27.0-31.0); Mean Platelet Volume 7.7 fL (7.4-10.4); Platelet Count 471 thou/uL (130-400); RBC Distribution Width 18.9 % (11.5-14.5); Red Blood Cell (RBC) Count 2.18 mill/uL (4.70-6.10); White Blood Cell (WBC) Count 10.9 thou/uL (4.8-10.8)
[2019-03-20 05:53] LABS: ALT (SGPT) 12 U/L (8-55); AST (SGOT) 22 U/L (5-34); Albumin 3.1 g/dL (3.4-4.8); Alkaline Phosphatase 64 U/L (40-150); Anion Gap 12 mmol/L (10-20); BUN (Urea Nitrogen) 15 mg/dL (8.4-25.7); Bilirubin, Total 0.9 mg/dL (0.2-1.2); Calc. Creatinine Clearance 92 mL/min (70-130); Calcium 8.4 mg/dL (7.8-10.44); Carbon Dioxide 28 mmol/L (23-31); Chloride 101 mmol/L (98-107); Estimated GFR-MDRD 87; Globulin 2.3 g/dL (2.4-3.5); Glucose 198 mg/dL (83-110); Potassium 4.1 mmol/L (3.5-5.1); Protein, Total 5.4 g/dL (5.8-8.1); Sodium 137 mmol/L (136-145)
[2019-03-20] MEDS ORDERED: Furosemide 40 MG TAB PO SCH ×2 (07:30→10:53)
[2019-03-20] MEDS: Aspirin Chewable 81 MG TAB PO SCH (08:28)
[2019-03-20] MEDS: Gabapentin 300 MG CAP PO SCH ×3 (08:39→21:01)
[2019-03-20] MEDS: Clopidogrel Bisulfate 75 MG TAB PO SCH (08:39)
[2019-03-20] MEDS: Potassium Chloride 20 MEQ TAB PO SCH (08:39)
[2019-03-20] MEDS: Tamsulosin HCl 0.4 MG CAP PO SCH (08:39)
[2019-03-20] MEDS: Aspirin 81 mg Enteric Coated Tablet PO SCH (08:39)
[2019-03-20] MEDS: Sotalol HCl 80 MG TAB PO SCH ×2 (10:10→21:01)
[2019-03-20] MEDS ORDERED: Polyethylene Glycol 3350 17 GM Packet PO SCH ×2 (10:51→12:15)
[2019-03-20] MEDS ORDERED: Bisacodyl 5 MG TAB PO SCH (11:00)
[2019-03-20] MEDS ORDERED: IRON SUCROSE COMPLEX 100 MG/5 ML SLOW IVP SCH (11:00)
[2019-03-20] MEDS ORDERED: Furosemide 20 MG TAB PO SCH (12:00)
[2019-03-20 12:15] LABS: Iron 93 ug/dL (65-175); Iron Binding Capacity, Total 189 mcg/dL (261-462)
[2019-03-20] MEDS ORDERED: Iron, Sodium Ferric Gluconate 125 MG in Sodium Chloride 0.9% 100 ML IVPB SCH (13:00)
--- NOTE | 2019-03-20 13:24 | PQF ---
CLINICAL DOCUMENTATION IMPROVEMENT CLARIFICATION FORM: ICD-10 Updated PLEASE DO AN ADDENDUM TO THE PROGRESS NOTE WITH ANY DOCUMENTATION UPDATES OR ADDITIONS AND CARRY THROUGH TO DC SUMMARY. THANK YOU. DATE: 03/20/19 ATTN: DR. STOREY Please exercise your independent, professional judgment in responding to the clarification form. Clinical indicators are provided on the bottom of this form for your review Please check appropriate box(s): HEART FAILURE: A. TYPE: [ ] Systolic / HFrEF [ x ] Diastolic / HFpEF [ ] Combined Systolic / Diastolic B. ACUITY [ ] Acute [ ] Acute on Chronic [ ] Chronic [ ] Other diagnosis [ ] Unable to determine In addition, please specify: Present on Admission (POA): [ x] Yes [ ] No [ ] Unable to determine For continuity of documentation, please document condition throughout progress notes and discharge summary. Thank You. CLINICAL INDICATORS - SIGNS / SYMPTOMS / LABS H&P: "ACUTE CONGESTIVE HEART FAILURE EXACERBATION/FLASH PULMONARY EDEMA" ECHO REPORT: "EJECTION FRACTION VISUALLY ESTIMATED AT 50-55%" BNP 03/17: 808.7 RISKS: CAD HTN RECENT CABG AFIB NSTEMI TREATMENT: CARDIOLOGY CONSULT ECHOCARDIOGRAM CARDIAC MONITORING NOW DOSE LASIX (03/20) START LASIX DAILY (03/21) [employer] Win[employer] (This form is maintained as a part of the permanent medical record) 2014 [employer]. All Rights Reserved ARUNA [email or web address] Office: [phone] [facility]
[2019-03-20 15:02] VITALS: BMI 27.6
[2019-03-20] MEDS ORDERED: diphenhydrAMINE 25 MG CAP PO SCH (15:15)
[2019-03-20] MEDS: cefTRIAXone\\ROCEPHIN 1 GM in Sodium Chloride 0.9% 100 ML IVPB SCH (17:00)
[2019-03-20] MEDS: Atorvastatin Calcium 40 MG TAB PO SCH (21:01)
--- NOTE | 2019-03-20 22:28 | PDOC.PN ---
- Subjective Encounter Start Date: 03/20/19 Encounter Start Time: 10:15 Subjective: pt up in bed no complains - Objective Vital Signs & Weight: Vital Signs (12 hours) Temp Pulse Pulse Pulse Pulse Resp BP 03/20/19 21:01 84 03/20/19 20:57 97.7 F 87 21 H 03/20/19 19:24 97.8 F 84 20 03/20/19 18:17 98.5 F 22 H 03/20/19 16:06 97.8 F 83 20 03/20/19 15:00 97.9 F 71 24 H 03/20/19 11:50 96.6 F L 71 20 03/20/19 10:58 71 77 100/50 L BP BP BP Pulse Ox Pulse Ox Pulse Ox 03/20/19 21:01 03/20/19 20:57 136/63 94 L 03/20/19 19:24 127/64 93 L 03/20/19 18:17 99/53 L 93 L 03/20/19 16:06 127/61 92 L 03/20/19 15:00 105/54 L 91 L 03/20/19 11:50 124/60 94 L 03/20/19 10:58 102/51 L 96 98 Weight Admit Weight 215 lb 14.4 oz Weight 204 lb I&O: 03/19/19 03/20/19 03/21/19 06:59 06:59 06:59 Intake Total 780 1500 Output Total 2325 1125 Balance -1545 375 Result Diagrams: 03/20/19 04:25 03/20/19 04:25 Additional Labs: Accuchecks 03/20/19 16:12 POC Glucose 287 H Phys Exam - Physical Examination Neck: no nodes, no JVD, supple, full ROM Respiratory: no wheezing, no rales, no rhonchi, wheezing present, clear to auscultation bilateral Cardiovascular: RRR, no significant murmur, no rub, gallop, irregular Dx/Plan (1) NSTEMI (non-ST elevated myocardial infarction) Code(s): I21.4 - NON-ST ELEVATION (NSTEMI) MYOCARDIAL INFARCTION Status: Acute (2) Chest pain Code(s): R07.9 - CHEST PAIN, UNSPECIFIED Status: Acute (3) Elevated troponin Code(s): R74.8 - ABNORMAL LEVELS OF OTHER SERUM ENZYMES Status: Acute (4) Elevated troponin Code(s): R74.8 - ABNORMAL LEVELS OF OTHER SERUM ENZYMES Status: Acute - Plan s/p stent to mid to ostial RCA -: s/p recent CABG -: pt has been anemic, will check occult blood -: i have transfused him one unit, iron studies -: He started to become sob with iron transfusion * . Does not recall last colonoscopy. 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 pt will need outpatient colonoscopy in the future. He will need some of his medication adjusted due to his low bp. Review of Systems - Review of Systems Respiratory: negative: Cough, Dry, Shortness of Breath, Hemoptysis, SOB with Excertion, Pleuritic Pain, Sputum, Wheezing Cardiovascular: negative: chest pain, palpitations, orthopnea, paroxysmal nocturnal dyspnea, edema, light headedness, other - Medications/Allergies Allergies/Adverse Reactions: Allergies Allergy/AdvReac Type Severity Reaction Status Date / Time No Known Drug Allergies Allergy Verified 03/17/19 02:24 Medications: Current Medications Acetaminophen/Codeine Phosphate (Tylenol #3) 2 tab PO Q6H PRN PRN Reason: Pain Albuterol/Ipratropium (Duoneb) 3 ml NEB Q4H PRN PRN Reason: SOB Aspirin (Aspirin Chewable) 81 mg PO DAILY [facility] Last Admin: 03/20/19 08:28 Dose: Not Given Atorvastatin Calcium (Lipitor) 40 mg PO HS [facility] Last Admin: 03/20/19 21:01 Dose: 40 mg Clopidogrel Bisulfate (Plavix) 75 mg PO DAILY [facility] Last Admin: 03/20/19 08:39 Dose: 75 mg Furosemide (Lasix) 20 mg PO DAILY[facility] Gabapentin (Neurontin) 300 mg PO TID [facility] Last Admin: 03/20/19 21:01 Dose: 300 mg Ceftriaxone Sodium 1 gm/ (Sodium Chloride) 100 mls @ 200 mls/hr IVPB Q24HR [facility] Last Admin: 03/20/19 17:00 Dose: 100 mls Isosorbide Mononitrate (Imdur Er) 30 mg PO 1200 [facility] Last Admin: 03/20/19 15:43 Dose: Not Given Morphine Sulfate (Morphine) 2 mg SLOW IVP Q4H PRN PRN Reason: Moderate Chest Pain (4-6) Nitroglycerin (Nitrostat) 0.4 mg SL Q5MIN PRN PRN Reason: Chest Pain Polyethylene Glycol (Miralax) 17 gm PO DAILY [facility] Potassium Chloride (K-Dur) 20 meq PO QAM-WM [facility] Last Admin: 03/20/19 08:39 Dose: 20 meq Sodium Chloride (Flush - Normal Saline) 10 ml IVF Q12HR [facility] Last Admin: 03/20/19 21:01 Dose: 10 ml Sodium Chloride (Flush - Normal Saline) 10 ml IVF PRN PRN PRN Reason: Saline Flush Sotalol HCl (Betapace) 80 mg PO BID [facility] Last Admin: 03/20/19 21:01 Dose: 80 mg Tamsulosin HCl (Flomax) 0.4 mg PO DAILY [facility] Last Admin: 03/20/19 08:39 Dose: 0.4 mg
--- NOTE | 2019-03-20 22:33 | PDOC.EVN ---
Event Note - Event Note Event Note: multiple attempts to see pt. 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
[2019-03-21 04:41] LABS: Anion Gap 11 mmol/L (10-20); BUN (Urea Nitrogen) 15 mg/dL (8.4-25.7); Calc. Creatinine Clearance 93 mL/min (70-130); Calcium 9.1 mg/dL (7.8-10.44); Carbon Dioxide 32 mmol/L (23-31); Chloride 101 mmol/L (98-107); Estimated GFR-MDRD 88; Glucose 217 mg/dL (83-110); Potassium 3.9 mmol/L (3.5-5.1); Sodium 140 mmol/L (136-145)
[2019-03-21 04:54] LABS: #Eosinphils 0.5 thou/uL (0.0-0.7); #Lymphocytes 1.6 thou/uL (1.20-3.40); #Monocytes 0.9 thou/uL (0.11-0.59); #Neutrophils 6.6 thou/uL (1.40-6.50); %Eosinophils 4.9 % (0.0-10.0); %Lymphocytes 16.7 % (21.0-51.0); %Monocytes 9.3 % (0.0-10.0); %Neutrophils 69.1 % (42.0-75.0); Anisocytosis SLIGHT = 6-15 cells (100X) (0-5/hpf); Hemoglobin 8.3 g/dL (14.0-18.0); MDiff Complete? YES; Macrocytosis SLIGHT = 6-15 cells (100X) (0-5/hpf); Mean Corpuscular HGB CONC 33.4 g/dL (32.0-36.0); Mean Corpuscular Hemoglobin 33.8 pg (27.0-31.0); Mean Platelet Volume 7.6 fL (7.4-10.4); Platelet Count 457 thou/uL (130-400); Platelet Morphology Comment Appears Increased; RBC Distribution Width 23.1 % (11.5-14.5); Red Blood Cell (RBC) Count 2.46 mill/uL (4.70-6.10); White Blood Cell (WBC) Count 9.5 thou/uL (4.8-10.8)
[2019-03-21] MEDS ORDERED: Furosemide 20 MG TAB PO SCH (07:30)
[2019-03-21] MEDS ORDERED: Polyethylene Glycol 3350 17 GM Packet PO SCH (09:00)
[2019-03-21] MEDS: Gabapentin 300 MG CAP PO SCH (09:39)
[2019-03-21] MEDS: Sotalol HCl 80 MG TAB PO SCH (09:39)
[2019-03-21] MEDS: Aspirin Chewable 81 MG TAB PO SCH (09:39)
[2019-03-21] MEDS: Tamsulosin HCl 0.4 MG CAP PO SCH (09:39)
[2019-03-21] MEDS: Clopidogrel Bisulfate 75 MG TAB PO SCH (09:39)
[2019-03-21] MEDS: Potassium Chloride 20 MEQ TAB PO SCH (09:39)
[2019-03-21 15:50] VITALS: BP 131/60; TEMP 97.7
[2019-03-22 19:08] LABS: A/G Ratio 0.9 (0.7-1.7); Albumin 2.7 g/dL (2.9-4.4); Alpha 1 0.4 g/dL (0.0-0.4); Alpha 2 1.1 g/dL (0.4-1.0); Beta 0.9 g/dL (0.7-1.3); Gamma 0.4 g/dL (0.4-1.8); Globulin, Total 2.9 g/dL (2.2-3.9); M-Spike Not Observed g/dL (Not Observed); Protein Electrophoresis Intrp Note: (.)
== END 2019-03-21 18:14 | disposition home or self-care (01) | DRG 246 ==
LOC: ERS 22:12 → 2SW 03-17 00:45 → OBSVTOIN 03-17 03:08
PROVIDERS: ADMIT Hospitalist; ATTEND Hospitalist
PROC: 027036Z Dilation of Coronary Artery, One Artery with Three Drug-eluting Intraluminal Devices, Percutaneous Approach (ICD-10-PCS; principal; 2019-03-19)
PROC: 4A023N7 Measurement of Cardiac Sampling and Pressure, Left Heart, Percutaneous Approach (ICD-10-PCS; 2019-03-19)
PROC: B2131ZZ Fluoroscopy of Multiple Coronary Artery Bypass Grafts using Low Osmolar Contrast (ICD-10-PCS; 2019-03-19)
PROC: B2111ZZ Fluoroscopy of Multiple Coronary Arteries using Low Osmolar Contrast (ICD-10-PCS; 2019-03-19)
PROC: B2151ZZ Fluoroscopy of Left Heart using Low Osmolar Contrast (ICD-10-PCS; 2019-03-19)
PROC: B2181ZZ Fluoroscopy of Left Internal Mammary Bypass Graft using Low Osmolar Contrast (ICD-10-PCS; 2019-03-19)
DX: I21.4 Non-ST elevation (NSTEMI) myocardial infarction (principal); I50.33 Acute on chronic diastolic (congestive) heart failure; I11.0 Hypertensive heart disease with heart failure; I25.10 Atherosclerotic heart disease of native coronary artery without angina pectoris; E11.9 Type 2 diabetes mellitus without complications; E78.00 Pure hypercholesterolemia, unspecified; I48.0 Paroxysmal atrial fibrillation; I45.81 Long QT syndrome; D64.9 Anemia, unspecified; Z79.84 Long term (current) use of oral hypoglycemic drugs; Z95.1 Presence of aortocoronary bypass graft; Z79.899 Other long term (current) drug therapy; Z79.01 Long term (current) use of anticoagulants; Z87.891 Personal history of nicotine dependence
CPT/HCPCS: 36415; 36416; 36430; 71045; 80048; 80053; 80061; 81001; 82553; 82728; 83540; 83550; 83735; 83880; 84165; 84484; 85025; 85347; 85610; 85730; 86850; 86900; 86901; 87086; 92928; 93005; 93010; 93306; 93459; 93567; 93798; 94640; 94760; 96372; 99152; 99153; C1725; C1769; C1874; C1887; C9600; J0583; J0696; J1644; J1650; J1756; J1940; J2001; J2250; J2405; J2916; J3010; J3490; J7620; P9016; Q0163; Q9967

== ENCOUNTER 2019-05-02 16:06 | Inpatient (IN) | payer MEDICARE, OTHER ==
[2019-05-02 16:48] LABS: #Basophils 0.1 thou/uL (0.0-0.2); #Eosinphils 0.1 thou/uL (0.0-0.7); #Lymphocytes 0.9 thou/uL (1.20-3.40); #Monocytes 0.5 thou/uL (0.11-0.59); #Neutrophils 7.1 thou/uL (1.40-6.50); %Basophils 0.6 % (0.0-1.0); %Eosinophils 1.4 % (0.0-10.0); Hemoglobin 5.5 g/dL (14.0-18.0); Mean Corpuscular Hemoglobin 33.1 pg (27.0-31.0); Mean Platelet Volume 7.5 fL (7.4-10.4); Platelet Count 451 thou/uL (130-400); RBC Distribution Width 19.8 % (11.5-14.5); Red Blood Cell (RBC) Count 1.65 mill/uL (4.70-6.10); White Blood Cell (WBC) Count 8.6 thou/uL (4.8-10.8)
--- NOTE | 2019-05-02 16:57 | RAD ---
Chest one view HISTORY: Dyspnea. Syncope. COMPARISON: 03/14/2019. FINDINGS: Cardiac silhouette remains magnified and enlarged. Pulmonary vasculature slightly engorged with mild patchy bibasilar infiltrates. Mediastinum is midline with postoperative changes and aortic calcification. No lobar consolidation or evidence of pneumothorax. monitor technician leads overl ie the chest. IMPRESSION: Cardiomegaly with borderline pulmonary vascular congestion. Stable in appearance to the p revious exam. Atherosclerosis.
[2019-05-02 17:04] LABS: ALT (SGPT) 9 U/L (8-55); AST (SGOT) 9 U/L (5-34); Albumin 3.4 g/dL (3.4-4.8); Alkaline Phosphatase 78 U/L (40-150); Anion Gap 18 mmol/L (10-20); BUN (Urea Nitrogen) 17 mg/dL (8.4-25.7); Bilirubin, Total 0.9 mg/dL (0.2-1.2); CK (CPK) 62 U/L (30-200); Calc. Creatinine Clearance 0 mL/min (70-130); Calcium 8.4 mg/dL (7.8-10.44); Carbon Dioxide 21 mmol/L (23-31); Chloride 105 mmol/L (98-107); Estimated GFR-MDRD 68; Globulin 2.2 g/dL (2.4-3.5); Glucose 292 mg/dL (83-110); Potassium 3.8 mmol/L (3.5-5.1); Protein, Total 5.6 g/dL (5.8-8.1); Sodium 140 mmol/L (136-145)
[2019-05-02 17:27] LABS: CKMB 2.1 ng/mL (0-6.6)
[2019-05-02 18:25] LABS: Bacteria/HPF 2+ HPF (None Seen); Bilirubin Negative (Negative); Blood, Urine Negative (Negative); Clarity Clear (Clear); Glucose, Urine (Dipstick) 70 mg/dL (Negative); Leukocyte 500 Leu/uL (Negative); Nitrite Negative (Negative); Protein, Urine (Dipstick) Negative (Neg-Trace); Squamous Epithelial 0-3 HPF (0-3); Urobilinogen Normal mg/dL (Less than 2); WBC/HPF Greater than 50 HPF (0-3)
[2019-05-02 19:10] LABS: INR-International Normal Ratio 1.3; PTT 35.7 SEC (22.9-36.1); Prothrombin Time 16.1 SEC (12.0-14.7)
[2019-05-02] MEDS ORDERED: Ondansetron ODT 4 MG TAB SL PRN (19:47)
[2019-05-02] MEDS ORDERED: Ondansetron PF 4 MG/2 ML Vial IVP PRN (19:47)
[2019-05-02 19:48] VITALS: BMI 27.6
[2019-05-02 23:06] LABS: Troponin I 0.247 ng/mL (< 0.028)
[2019-05-03] MEDS ORDERED: Dextrose 50% Abboject 50 ML SYRINGE SLOW IVP PRN (01:40)
[2019-05-03] MEDS ORDERED: Dextrose 5% in Water 1,000 ML IV PRN (01:40)
--- NOTE | 2019-05-03 02:26 | HP ---
PRIMARY CARE DOCTOR: Dr. Shantelle Wyatt. CODE STATUS: Full code. TIME OF EVALUATION: 09:45 p.m. CHIEF COMPLAINT: Near-syncope. HISTORY OF PRESENT ILLNESS: A 78-year-old male patient, brought in by [facility] due to complaints of weakness and near-syncope. The symptoms started insidiously and has been gradually getting worse with no clear triggers, no alleviating factors, associated with dyspnea and some lightheadedness. The patient was found to be in atrial fibrillation with RVR around 120 per minute. Symptoms were severe. REVIEW OF SYSTEMS: CONSTITUTIONAL: No fever or chills. The patient has generalized weakness. RESPIRATORY: No cough, sputum production, or shortness of breath. CARDIOVASCULAR: No chest pain, palpitations are present. GASTROINTESTINAL: No nausea. No vomiting, diarrhea, or abdominal pain. CENTRAL NERVOUS SYSTEM: The patient had dizziness. No headache. The patient did have near-syncope episode. GENITOURINARY: No burning on urination. EXTREMITIES: Bilateral leg swelling. All other systems were reviewed and negative except for the findings mentioned above. PAST MEDICAL HISTORY: Positive for coronary artery disease, diabetes type 2, and hypertension. PAST SURGICAL HISTORY: CABG, tonsillectomy, appendectomy. PSYCHIATRIC HISTORY: No previous psych history. FAMILY HISTORY:Reviewed and non contributory for current presentation. SOCIAL HISTORY: No alcohol. No drugs. No smoking history. ALLERGIES: NO KNOWN DRUG ALLERGIES. REPORTED MEDICATIONS: None updated yet. PHYSICAL EXAMINATION: VITAL SIGNS: On presentation, blood pressure 134/64, heart rate 100, respiratory rate was 19, temperature 98.5. Pain was 2/10. Oxygen saturation was 96% on room air. GENERAL APPEARANCE: The patient is alert, oriented, in no acute distress. HEENT: Eyes, normal conjunctivae. Moist oral mucosa. Anicteric. No JVD. RESPIRATORY: Bilateral air entry. No rales. No wheezes. Symmetric expansion. CARDIOVASCULAR: Normal rate. Regular rhythm. No murmurs. No gallop. Bilateral leg edema. ABDOMEN: Soft. Normal bowel sounds. MUSCULOSKELETAL: Baseline range of motion and strength. SKIN: Warm and intact. The patient is pale. No rash. No redness. Capillary refill seems to be intact. NEUROLOGIC: No evidence of any new focal weakness. Cranial nerves seem to be intact. PSYCHIATRIC: Patient is in good mood. No anxiety. Optimal judgment. DIAGNOSTIC DATA: EKG was reviewed. The patient has normal sinus rhythm with a rate of 100, some T-wave inversion. Chest x-ray was reviewed. The patient has cardiomyopathy with borderline pulmonary vascular congestion, stable appearance of the previous exam. LABORATORY DATA: Reviewed. White count 8.6, hemoglobin 5.5, MCV was 103, platelet count 151. INR 1.3, PTT 35.7. Chemistry; sodium 140, potassium 3.8, carbon dioxide 21, BUN and creatinine were normal. Glucose 292. Troponin is 0.185, the second one 0.247. Beta-natriuretic peptide 10,053. Serum total protein 5.6, albumin 3.4, globulin 2.2, albumin globulin ratio is 1.5. Urine was done, was positive with white count 50. ASSESSMENT AND PLAN: The patient will be placed in the hospital with following medical problems; 1. Urinary tract infection. The patient will be placed on antibiotics, follow cultures, we will adjust treatment as needed. 2. Symptomatic anemia. The patient has hemoglobin 5.5, resume blood right now. We will monitor H and H and we will transfuse as needed. 3. Macrocytic anemia. The patient's MCV is 103. Renew the patient's folate and vitamin B12. 4. Uncontrolled diabetes with hyperglycemia with blood sugar 292. Patient will be placed on sliding scale for optimal control. Reconcile home medications. Low- carb diet. 5. Likely [id number] myocardial infarction type 2 secondary to anemia. Troponin initial one was 0.185, second one was 0.247. We will trend and monitor , we will adjust treatment as needed. 6. Near syncope. We will do echo, we will do carotid Doppler. Continue to monitor on tele, could be associated to underlying anemia. 7. Deep venous thrombosis prophylaxis. 8. History of coronary artery disease. Reconcile home medications, ruling out ACS. 9. Uncontrolled hypertension, systolic blood pressure elevation in 150s, reconcile home medications. We will treat accordingly. Job ID: [id number] MTDD
[2019-05-03] MEDS: cefTRIAXone\\ROCEPHIN 1 GM in Sodium Chloride 0.9% 100 ML IVPB SCH (02:59)
[2019-05-03] MEDS ORDERED: Nitroglycerin 2% Ointment 1 INCH/1 GM Packet TOP SCH (05:15)
[2019-05-03] MEDS ORDERED: Furosemide 40 MG/4 ML VIAL SLOW IVP SCH (05:15)
[2019-05-03] MEDS ORDERED: Nitroglycerin 0.4 MG TAB (25 Tab Bottle) SL SCH (05:15)
[2019-05-03] MEDS: Acetaminophen 325 MG TAB PO PRN ×2 (05:19→15:36)
[2019-05-03 05:43] LABS: #Eosinphils 0.3 thou/uL (0.0-0.7); #Lymphocytes 1.8 thou/uL (1.20-3.40); #Monocytes 0.7 thou/uL (0.11-0.59); #Neutrophils 7.2 thou/uL (1.40-6.50); %Basophils 0.2 % (0.0-1.0); %Eosinophils 3.1 % (0.0-10.0); %Lymphocytes 17.9 % (21.0-51.0); %Monocytes 6.8 % (0.0-10.0); %Neutrophils 72.1 % (42.0-75.0); Hemoglobin 7.3 g/dL (14.0-18.0); Mean Corpuscular HGB CONC 32.6 g/dL (32.0-36.0); Mean Corpuscular Hemoglobin 31.7 pg (27.0-31.0); Mean Corpuscular Volume 97.4 fL (78.0-98.0); Mean Platelet Volume 7.6 fL (7.4-10.4); Platelet Count 443 thou/uL (130-400); RBC Distribution Width 19.6 % (11.5-14.5)
[2019-05-03 06:02] LABS: Anion Gap 14 mmol/L (10-20); BUN (Urea Nitrogen) 15 mg/dL (8.4-25.7); Calc. Creatinine Clearance 92 mL/min (70-130); Calcium 8.9 mg/dL (7.8-10.44); Carbon Dioxide 25 mmol/L (23-31); Chloride 104 mmol/L (98-107); Estimated GFR-MDRD 87; Glucose 231 mg/dL (83-110); Potassium 3.2 mmol/L (3.5-5.1); Sodium 140 mmol/L (136-145)
[2019-05-03] MEDS ORDERED: cloNIDine 0.1 MG TAB PO SCH (06:15)
[2019-05-03] MEDS ORDERED: Heparin 10,000 UNITS/ 10 ML VIAL SLOW IVP SCH (08:30)
[2019-05-03] MEDS ORDERED: Heparin 25,000 units/D5W 500 ML IVPB SCH (08:30)
[2019-05-03 09:14] LABS: Hemoglobin 7.2 g/dL (14.0-18.0); Platelet Count 437 thou/uL (130-400)
[2019-05-03] MEDS: Folic Acid 1 MG TAB PO SCH (10:40)
[2019-05-03] MEDS: Cyanocobalamin (Vitamin B-12) 1,000 MCG TAB PO SCH (10:40)
[2019-05-03] MEDS: HumaLOG 300 UNITS/3 ML VIAL SC PRN ×2 (11:37→18:11)
--- NOTE | 2019-05-03 13:18 | CT ---
CT ABDOMEN AND PELVIS WITH IV CONTRAST 05/03/2019 CLINICAL INFORMATION: Losing blood. Evaluate for retroperitoneal bleed. COMPARISON: CT thorax 02/04/2019 Technique: Multiple contiguous axial CT images are obtained through the abdomen and pelvis with IV contrast. Cor onal reformatted images are provided. FINDINGS: Lower Chest: Left-sided thoracostomy tube seen on prior study is no longer visualized. Subcutaneous e mphysema has also resolved. There is a small to moderate size right and small left pleural effusions and associated bibasilar consolidation probably attributable to pass atelectasis. Median st ernotomy wires are partially visualized with surgical clips seen in the epicardial region on the left. Vessels: Vascular calcifications are seen in the visualized coronary arteries as well as involving th e abdominal aorta and iliac arteries. Incidental note is made of a retroaortic left renal vein. Abdomen: Portal vein:Patent Gallbladder: Decompressed. Liver: Small subcentimeter low-density focus seen in the medial aspect of medial segment left hepatic lobe likely related to small cyst. There is adjacent low-density area seen likely due to either focal area of fatty infiltration or perfusion defect. Liver otherwise has a normal CT appearance. Spleen: within normal limits. Pancreas: within normal limits. Adrenals: within normal limits. 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 Nonobstructing calcul i are seen in the left aspect of the horseshoe kidney measuring approximately 3 mm. No ureteral calculi are visualized. Bowel: There is colonic diverticulosis. Loops of small bowel are normal in caliber. Appendix: Not visualized. Patient reports history of prior appendectomy. Peritoneum: No ascites or free air; no fluid collection. Mesentery and Retroperitoneum: No enlarged mesenteric or retroperitoneal lymph nodes. Abdominal Wall: A fat-containing umbilical hernia is present. Pelvis: Reproductive Organs: Calcifications are seen in the prostate gland. Pelvis within normal limits. Bladder: Partially distended but with a trabeculated appearance and suggestion of small diverticulum at the right lateral aspect of the urinary bladder. Bones: Mild degenerative changes are seen in the spine. No suspicious lytic or sclerotic osseous lesi ons are identified. IMPRESSION: 1. Bilateral pleural effusions larger in size on the right with associated passive atelectasis. 2. Trace pericardial effusion with postsurgical changes related to prior median sternotomy. 3. Horseshoe-shaped kidney with nonobstructing renal calculi in the left aspect of the kidney. 4. Colonic diverticulosis. 5. Spiculated appearance of the urinary bladder with suggestion of a small urinary bladder diverticul um at the right lateral aspect of the urinary bladder. 6. Fat-containing umbilical hernia. 7. There is no free fluid seen within the abdomen or pelvis, and no findings are seen to suggest a re troperitoneal hemorrhage.
--- NOTE | 2019-05-03 14:54 | PDOC.HOSPP ---
- Subjective Subjective: Patient seen and examined. Patient with worsening weakness, found to have symptomatic anemia with Hgb of 5.5 on arrival. Patient denies black or bloody BM and states that he always runs low. Patient has had some mild shortness of breath and states that his ankles have been more swollen than usual for him. Denies palpitations, though he states he never feels when he goes into afib with RVR - Objective Vital Signs & Weight: Vital Signs (12 hours) Temp Pulse Pulse Resp BP BP BP 05/03/19 08:00 97.5 F L 94 16 144/69 H 05/03/19 06:16 173/81 H 05/03/19 04:43 98.1 F 100 22 H 166/74 H 05/03/19 03:37 98.8 F 99 20 171/77 H Pulse Ox 05/03/19 08:00 94 L 05/03/19 06:16 05/03/19 04:43 93 L 05/03/19 03:37 96 Weight Weight 203 lb 9 oz I&O: 05/02/19 05/03/19 05/04/19 06:59 06:59 06:59 Intake Total 1200 Output Total 950 Balance 250 Result Diagrams: 05/03/19 08:35 05/03/19 05:30 Additional Labs: Accuchecks 05/03/19 05/03/19 11:19 05:33 POC Glucose 337 H 239 H Radiology Reviewed by me: Yes (CT abdomen/ pelvis reviewed and negative for intra abdominal bleed) ROS - Medication Medications: Active Medications Generic Name Dose Route Start Last Admin Trade Name Freq PRN Reason Stop Dose Admin Acetaminophen 650 mg 05/02/19 19:47 05/03/19 05:19 Tylenol PO 05/09/19 03:35 650 mg Q4H PRN Administration Headache/Fever or Pain Cyanocobalamin 1,000 mcg 05/03/19 09:00 05/03/19 10:40 Vitamin B-12 PO 1,000 mcg DAILY [facility] Administration Folic Acid 1 mg 05/03/19 09:00 05/03/19 10:40 Folvite PO 1 mg DAILY [facility] Administration Ceftriaxone Sodium 1 gm/ 100 mls @ 200 mls/hr 05/03/19 02:00 05/03/19 02:59 Sodium Chloride IVPB 100 mls Q24HR [facility] Administration Insulin Human Lispro 0 units 05/03/19 01:40 05/03/19 11:37 Humalog SC 5 unit .MILD SLIDING SCALE PRN Administration Mild Correctional Scale - Exam NAD, awake alert Eye: PERRL ENT: normocephalic atraumatic, moist mucosa Neck: supple Heart: irregular Heart - other findings: Irregularly irregular rhythm, no murmur appreciated Respiratory: no tachypnea. negative: no wheezes, no rales, no ronchi Respiratory - other findings: diminished breath sounds in lower lung tillman. Gastrointestinal: soft Gastrointestinal - other findings: Mildly tender to deep palpation Extremities: no cyanosis, 1+ LE edema Neurological: CN's grossly intact, normal sensation to touch Musculoskeletal: generalized weakness Psychiatric: normal affect, normal behavior, A&O x 3 Hosp A/P (1) Symptomatic anemia Code(s): D64.9 - ANEMIA, UNSPECIFIED Status: Acute (2) Atrial fibrillation with RVR Code(s): I48.91 - UNSPECIFIED ATRIAL FIBRILLATION Status: Acute (3) Shortness of breath Code(s): R06.02 - SHORTNESS OF BREATH Status: Acute (4) Leg edema Code(s): R60.0 - LOCALIZED EDEMA Status: Acute (5) Elevated troponin Code(s): R74.8 - ABNORMAL LEVELS OF OTHER SERUM ENZYMES Status: Acute - Plan old records reviewed/req Plan: Medical unit with telemetry Hgb good response to PRBC transfusion, will transfuse 2 units of PRBC for Hgb < 7.0 No tru bleeding Negative fecal occult blood CT abdomen/ pelvis reviewed, no acute process or retroperitoneal bleeding Cardiology consult requested, recommendations appreciated Will defer anticoagulation and rate control agents to cardiology Patient admits to missing several doses of Coumadin and does not regularly go to coumadin clinic Patient has been on Amiodarone and Sotalol in the past HR improving with IV fluids and blood transfusion With pleural effusion, consider thoracentesis
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
[2019-05-03] MEDS ORDERED: Iopamidol 370 76% 100 ML VIAL ONE (16:05)
[2019-05-03] MEDS ORDERED: hydrALAZINE 20 MG/ML VIAL SLOW IVP PRN (18:32)
[2019-05-03] MEDS ORDERED: Labetalol HCl 100 MG/20 ML VIAL SLOW IVP PRN (18:34)
[2019-05-03] MEDS: Sotalol HCl 80 MG TAB PO SCH (20:01)
[2019-05-03] MEDS: Furosemide 40 MG TAB PO SCH (20:02)
[2019-05-04] MEDS: cefTRIAXone\\ROCEPHIN 1 GM in Sodium Chloride 0.9% 100 ML IVPB SCH (02:27)
[2019-05-04] MEDS: Acetaminophen 325 MG TAB PO PRN ×2 (02:27→15:27)
[2019-05-04] MEDS: Furosemide 40 MG TAB PO SCH (08:55)
[2019-05-04] MEDS: Cyanocobalamin (Vitamin B-12) 1,000 MCG TAB PO SCH (08:55)
[2019-05-04] MEDS: Sotalol HCl 80 MG TAB PO SCH (08:55)
[2019-05-04] MEDS: Folic Acid 1 MG TAB PO SCH (08:55)
[2019-05-04] MEDS: HumaLOG 300 UNITS/3 ML VIAL SC PRN ×2 (09:00→11:56)
[2019-05-04] MEDS ORDERED: Tamsulosin HCl 0.4 MG CAP PO SCH (09:00)
[2019-05-04 09:24] LABS: Hemoglobin 8.1 g/dL (14.0-18.0); Mean Corpuscular HGB CONC 33.1 g/dL (32.0-36.0); Mean Corpuscular Hemoglobin 32.3 pg (27.0-31.0); Mean Corpuscular Volume 97.5 fL (78.0-98.0); Mean Platelet Volume 7.5 fL (7.4-10.4); Platelet Count 449 thou/uL (130-400); RBC Distribution Width 19.8 % (11.5-14.5); Red Blood Cell (RBC) Count 2.51 mill/uL (4.70-6.10); White Blood Cell (WBC) Count 10.1 thou/uL (4.8-10.8)
[2019-05-04 11:56] VITALS: TEMP 98.6
[2019-05-04] MEDS ORDERED: Furosemide 40 MG TAB PO SCH (14:00)
[2019-05-04 15:21] VITALS: BP 136/65
--- NOTE | 2019-05-04 15:54 | PDOC.CTH ---
Cardiology Progress Note - Subjective he is doing much better. Feels back to normal. No SOB, no angina. - Objective Vital Signs Temp Pulse Resp BP Pulse Ox 05/04/19 15:16 74 18 136/65 96 05/04/19 11:55 98.6 F 74 20 129/60 96 05/04/19 08:55 80 05/04/19 08:00 98.5 F 80 18 152/67 H 98 05/04/19 04:00 98.7 F 76 18 152/63 H 97 Weight 199 lb 4.8 oz 05/03/19 05/04/19 05/05/19 06:59 06:59 06:59 Intake Total 1200 1300 420 Output Total 950 1500 500 Balance 250 -200 -80 - Physical Examination General/Neuro: alert & oriented x3, NAD Neck: no JVD present Lungs: CTA, unlabored respirations Heart: RRR Abdomen: NT/ND Extremities: other: (no edema) - Telemetry Telemetry Rhythm: NSR - Labs Result Diagrams: 05/04/19 09:18 05/03/19 05:30 Troponin/CKMB CK-MB (CK-2) 2.1 ng/mL (0-6.6) 05/02/19 16:35 Troponin I 0.247 ng/mL (< 0.028) H 05/02/19 22:12 - Assessment/Plan 1. Symptomatic anemia. Hgb as low as 5.5 2. S/P blood transfusion, 2 units PRBC's. 3. CAD 4. Recent PCI to RCA with ANA. 5. Type 2 AR demand ischemia. PLAN: - Hgb stable at 8 now. - Asymptomatic. - May discharge home - Needs follow up with PCP and GI evaluation as an outpatient for anemia.
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
== END 2019-05-04 16:16 | disposition home or self-care (01) | DRG 811 ==
LOC: ERS 16:06 → 2NO 19:31
PROVIDERS: ADMIT Internal Medicine; ATTEND Internal Medicine
PROC: 30233N1 Transfusion of Nonautologous Red Blood Cells into Peripheral Vein, Percutaneous Approach (ICD-10-PCS; principal; 2019-05-02)
DX: D50.9 Iron deficiency anemia, unspecified (principal); I21.A1 Myocardial infarction type 2; J90 Pleural effusion, not elsewhere classified; N39.0 Urinary tract infection, site not specified; I48.91 Unspecified atrial fibrillation; I25.10 Atherosclerotic heart disease of native coronary artery without angina pectoris; E78.5 Hyperlipidemia, unspecified; N40.0 Benign prostatic hyperplasia without lower urinary tract symptoms; E11.40 Type 2 diabetes mellitus with diabetic neuropathy, unspecified; I10 Essential (primary) hypertension; N32.3 Diverticulum of bladder; Z95.1 Presence of aortocoronary bypass graft; Z87.828 Personal history of other (healed) physical injury and trauma; Z79.01 Long term (current) use of anticoagulants; Z87.442 Personal history of urinary calculi; Z79.4 Long term (current) use of insulin; Q63.1 Lobulated, fused and horseshoe kidney; Z90.49 Acquired absence of other specified parts of digestive tract; Z98.49 Cataract extraction status, unspecified eye; Z95.5 Presence of coronary angioplasty implant and graft
CPT/HCPCS: 36415; 36416; 36430; 71045; 74177; 80048; 80053; 81003; 81015; 82274; 82550; 82553; 83880; 84484; 85025; 85027; 85610; 85730; 86850; 86900; 86901; 93005; 94760; J0696; J1644; J1940; J3490; P9016; Q9967

== ENCOUNTER 2019-05-22 16:56 | Inpatient (IN) | payer MEDICARE, OTHER ==
[2019-05-22 18:04] LABS: #Basophils 0.1 thou/uL (0.0-0.2); #Eosinphils 0.5 thou/uL (0.0-0.7); #Lymphocytes 2.2 thou/uL (1.20-3.40); #Monocytes 0.7 thou/uL (0.11-0.59); #Neutrophils 7.1 thou/uL (1.40-6.50); %Basophils 0.6 % (0.0-1.0); %Eosinophils 4.7 % (0.0-10.0); %Monocytes 6.5 % (0.0-10.0); %Neutrophils 67.2 % (42.0-75.0); Hemoglobin 6.4 g/dL (14.0-18.0); Mean Corpuscular Hemoglobin 32.2 pg (27.0-31.0); Mean Corpuscular Volume 97.6 fL (78.0-98.0); Mean Platelet Volume 7.3 fL (7.4-10.4); Platelet Count 514 thou/uL (130-400); RBC Distribution Width 19.8 % (11.5-14.5); Red Blood Cell (RBC) Count 1.98 mill/uL (4.70-6.10); White Blood Cell (WBC) Count 10.6 thou/uL (4.8-10.8)
[2019-05-22 18:07] LABS: INR-International Normal Ratio 1.2; Prothrombin Time 14.9 SEC (12.0-14.7)
[2019-05-22 18:28] LABS: ALT (SGPT) 8 U/L (8-55); AST (SGOT) 8 U/L (5-34); Albumin 3.9 g/dL (3.4-4.8); Alkaline Phosphatase 95 U/L (40-150); Anion Gap 14 mmol/L (10-20); BUN (Urea Nitrogen) 13 mg/dL (8.4-25.7); Bilirubin, Total 0.5 mg/dL (0.2-1.2); Calc. Creatinine Clearance 0 mL/min (70-130); Calcium 9.2 mg/dL (7.8-10.44); Carbon Dioxide 24 mmol/L (23-31); Chloride 106 mmol/L (98-107); Estimated GFR-MDRD 77; Globulin 2.2 g/dL (2.4-3.5); Glucose 257 mg/dL (83-110); Protein, Total 6.1 g/dL (5.8-8.1); Sodium 140 mmol/L (136-145)
[2019-05-22 18:50] LABS: CKMB 3.3 ng/mL (0-6.6)
[2019-05-22] MEDS ORDERED: Levofloxacin 500 mg/D5W 100 ml Premix Bag ONE (19:26)
[2019-05-22] MEDS ORDERED: levETIRAcetam 500 MG/100 ML PREMIX BAG ONE (19:27)
[2019-05-22 23:41] LABS: Troponin I 0.519 ng/mL (< 0.028)
[2019-05-23] MEDS ORDERED: Senokot S 8.6-50 MG TAB PO PRN (01:09)
[2019-05-23] MEDS ORDERED: Dextrose 50% Abboject 50 ML SYRINGE SLOW IVP PRN (01:09)
[2019-05-23] MEDS ORDERED: Dextrose 5% in Water 1,000 ML IV PRN (01:09)
[2019-05-23] MEDS ORDERED: Bisacodyl 10 MG SUPP PR PRN (01:09)
[2019-05-23] MEDS ORDERED: Guaifenesin DM 100-10/5 ML UDCUP PO PRN (01:09)
[2019-05-23] MEDS ORDERED: Acetaminophen/Codeine 30-300mg Tablet PO PRN (01:09)
[2019-05-23] MEDS ORDERED: Sodium Chloride 0.9% (PF) 10 ML VIAL FS PRN (01:29)
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
[2019-05-23 03:12] VITALS: BMI 27.3
[2019-05-23] MEDS ORDERED: Furosemide 40 MG/4 ML VIAL SLOW IVP SCH (03:45)
[2019-05-23] MEDS: Acetaminophen 325 MG TAB PO PRN ×3 (04:50→23:47)
[2019-05-23] MEDS ORDERED: Amlodipine 10 MG TAB PO SCH (05:30)
[2019-05-23] MEDS ORDERED: hydrALAZINE 25 MG TAB PO SCH (05:30)
[2019-05-23] MEDS: HumaLOG 300 UNITS/3 ML VIAL SC PRN ×2 (05:43→13:35)
[2019-05-23 06:55] LABS: #Basophils 0.1 thou/uL (0.0-0.2); #Eosinphils 0.5 thou/uL (0.0-0.7); #Lymphocytes 1.8 thou/uL (1.20-3.40); #Monocytes 0.8 thou/uL (0.11-0.59); #Neutrophils 9.9 thou/uL (1.40-6.50); %Basophils 0.6 % (0.0-1.0); %Eosinophils 3.9 % (0.0-10.0); %Lymphocytes 13.9 % (21.0-51.0); %Monocytes 6.1 % (0.0-10.0); %Neutrophils 75.6 % (42.0-75.0); Hemoglobin 8.6 g/dL (14.0-18.0); Mean Corpuscular HGB CONC 35.1 g/dL (32.0-36.0); Mean Corpuscular Hemoglobin 32.8 pg (27.0-31.0); Mean Corpuscular Volume 93.7 fL (78.0-98.0); Platelet Count 491 thou/uL (130-400); RBC Distribution Width 18.5 % (11.5-14.5); Red Blood Cell (RBC) Count 2.62 mill/uL (4.70-6.10); White Blood Cell (WBC) Count 13.1 thou/uL (4.8-10.8)
[2019-05-23 07:03] LABS: Anion Gap 16 mmol/L (10-20); BUN (Urea Nitrogen) 12 mg/dL (8.4-25.7); Calc. Creatinine Clearance 86 mL/min (70-130); Carbon Dioxide 24 mmol/L (23-31); Chloride 103 mmol/L (98-107); Estimated GFR-MDRD 81; Glucose 333 mg/dL (83-110); Potassium 3.6 mmol/L (3.5-5.1); Sodium 139 mmol/L (136-145)
[2019-05-23] MEDS ORDERED: Furosemide 40 MG TAB PO SCH (09:00)
[2019-05-23 09:55] LABS: Iron 234 ug/dL (65-175); Iron Binding Capacity, Total 286 mcg/dL (261-462)
[2019-05-23] MEDS: Sotalol HCl 80 MG TAB PO SCH ×2 (10:00→21:26)
[2019-05-23] MEDS: Gabapentin 300 MG CAP PO SCH ×3 (10:00→21:25)
[2019-05-23] MEDS: Tamsulosin HCl 0.4 MG CAP PO SCH (10:00)
[2019-05-23] MEDS: Potassium Chloride 20 MEQ TAB PO SCH (10:00)
[2019-05-23] MEDS: Folic Acid 1 MG TAB PO SCH (10:00)
[2019-05-23] MEDS: Cyanocobalamin (Vitamin B-12) 1,000 MCG TAB PO SCH (10:00)
[2019-05-23] MEDS: Enoxaparin Sodium 40 MG/0.4 ML SYRINGE SC SCH (10:01)
[2019-05-23] MEDS: Pantoprazole 40 MG VIAL IVP SCH ×2 (10:01→21:28)
[2019-05-23] MEDS: Isosorbide Mononitrate (ER) 30 MG TAB PO SCH (13:02)
[2019-05-23] MEDS: Furosemide 40 MG TAB PO SCH (13:02)
--- NOTE | 2019-05-23 14:47 | PDOC.HOSPP ---
- Subjective Encounter Date: 05/23/19 Encounter Time: 14:40 Subjective: f/u for acute anemia of unclear source on ASA/Plavix after recent CABG x 4v in . s/p 2u PRBC's and hemoglobin improved. Denies any melena or blood in stool. States 20lb unintentional weight loss in last 2-3 months. - Objective Vital Signs & Weight: Vital Signs (12 hours) Temp Pulse Pulse Resp BP BP BP 05/23/19 14:25 73 16 05/23/19 12:50 97.8 F 73 18 148/63 H 05/23/19 10:00 92 05/23/19 09:39 100 141/64 H 05/23/19 07:58 97.9 F 92 18 146/65 H 05/23/19 07:40 84 16 05/23/19 05:41 94 179/80 H 05/23/19 05:40 94 179/80 H 05/23/19 04:36 183/82 H 05/23/19 03:56 69 18 05/23/19 03:40 97.6 F 100 22 H 179/69 H 05/23/19 03:30 Pulse Ox 05/23/19 14:25 05/23/19 12:50 98 05/23/19 10:00 05/23/19 09:39 05/23/19 07:58 96 05/23/19 07:40 95 05/23/19 05:41 05/23/19 05:40 05/23/19 04:36 05/23/19 03:56 97 05/23/19 03:40 95 05/23/19 03:30 91 L Weight Weight 201 lb 8 oz I&O: 05/22/19 05/23/19 05/24/19 06:59 06:59 06:59 Intake Total 200 Output Total 2425 Balance -2225 Result Diagrams: 05/24/19 04:24 05/23/19 05:55 Additional Labs: Accuchecks 05/23/19 05/23/19 11:14 05:40 POC Glucose 243 H 356 H Laboratory Tests 03/21/19 05/02/19 05/03/19 04:14 16:35 05:30 Hgb 8.3 L 5.5 L* 7.3 L Iron TIBC Troponin I 0805/04/19 05/22/19 08:35 09:18 17:50 Hgb 7.2 L 8.1 L Iron TIBC Troponin I 0.243 H 05/22/19 05/22/19 05/22/19 17:50 21:02 22:55 Hgb 6.4 L Iron TIBC Troponin I 0.430 H* 0.519 H* 05/23/19 09:15 Hgb Iron 234 H TIBC 286 Troponin I Radiology Reviewed by me: Yes (CT abd/pel - no acute process noted) EKG Reviewed by me: Yes (Tele - SR) Hospitalist ROS - Medication Medications: Active Medications Generic Name Dose Route Start Last Admin Trade Name Freq PRN Reason Stop Dose Admin Acetaminophen 650 mg 05/23/19 01:09 05/23/19 13:05 Tylenol PO 650 mg Q4H PRN Administration Headache/Fever/Mild Pain (1-3) Albuterol/Ipratropium 3 ml 05/23/19 07:00 05/23/19 14:25 Duoneb NEB 3 ml [id number] DELANEY Administration Cyanocobalamin 1,000 mcg 05/23/19 09:00 05/23/19 10:00 Vitamin B-12 PO 1,000 mcg DAILY DELANEY Administration Enoxaparin Sodium 40 mg 05/23/19 09:00 05/23/19 10:01 Lovenox SC 40 mg 0900 DELANEY Administration Folic Acid 1 mg 05/23/19 09:00 05/23/19 10:00 Folvite PO 1 mg DAILY DELANEY Administration Furosemide 40 mg 05/23/19 14:00 05/23/19 13:02 Lasix PO 40 mg 0900,1400 DELANEY Administration Gabapentin 300 mg 05/23/19 09:00 05/23/19 10:00 Neurontin PO 300 mg TID DELANEY Administration Insulin Human Lispro 0 units 05/23/19 01:09 05/23/19 13:35 Humalog SC 4 unit .MODERATE SLIDING SC PRN Administration Moderate Correctional Scale Isosorbide Mononitrate 30 mg 05/23/19 12:00 05/23/19 13:02 Imdur Er PO 30 mg 1200 DELANEY Administration Pantoprazole Sodium 40 mg 05/23/19 09:00 05/23/19 10:01 Protonix IVP 40 mg Q12HR DELANEY Administration Potassium Chloride 20 meq 05/23/19 08:00 05/23/19 10:00 K-Dur PO 20 meq QAM-WM DELANEY Administration Sotalol HCl 80 mg 05/23/19 09:00 05/23/19 10:00 Betapace PO 80 mg BID DELANEY Administration Tamsulosin HCl 0.4 mg 05/23/19 09:00 05/23/19 10:00 Flomax PO 0.4 mg DAILY DELANEY Administration - Exam General Appearance: NAD Eye: PERRL, anicteric sclera ENT: normocephalic atraumatic, no oropharyngeal lesions Neck: supple, symmetric, no JVD, no thyromegaly, no lymphadenopathy Heart: RRR, no murmur, no gallops, no rubs, normal peripheral pulses Respiratory: no ronchi, wheezes Gastrointestinal: soft, non-tender, non-distended, normal bowel sounds, no palpable masses Extremities: no cyanosis, no clubbing, no edema Skin: normal turgor, no lesions Neurological: CN's grossly intact, no focal deficits, no new deficit Musculoskeletal: normal tone, normal strength Psychiatric: normal affect, normal behavior, A&O x 3 Hosp A/P (1) Symptomatic anemia Code(s): D64.9 - ANEMIA, UNSPECIFIED Status: Acute Plan: s/p 2u PRBC's, GI consulted with plans for endoscopy in 24h, bowel prep, serial H/H, continue PPI, serial H/H (2) NSTEMI (non-ST elevated myocardial infarction) Code(s): I21.4 - NON-ST ELEVATION (NSTEMI) MYOCARDIAL INFARCTION Status: Acute Plan: Suspected Type2 from demand ischemia in context of anemia, continue supportive mgmt, consult Cardiology for any further recommendations (3) DM II (diabetes mellitus, type II), controlled Code(s): E11.9 - TYPE 2 DIABETES MELLITUS WITHOUT COMPLICATIONS Status: Chronic Plan: Labile glucose, ISS, titrate DM regimen for optimal response (4) CAD (coronary artery disease) Code(s): I25.10 - ATHSCL HEART DISEASE OF [place] CORONARY ARTERY W/O ANG PCTRS Status: Chronic Plan: s/p CABG x 4v, continue dual antiplatelet therapy, statin - Plan 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
[2019-05-23] MEDS ORDERED: GoLYTELY 4,000 ml Bottle PO SCH (15:00)
[2019-05-23] MEDS: hydrALAZINE 25 MG TAB PO SCH ×2 (15:55→21:25)
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
[2019-05-23] MEDS: Atorvastatin Calcium 40 MG TAB PO SCH (21:25)
[2019-05-24 05:06] LABS: Hemoglobin A1c 8.5 % (4.0-6.0)
[2019-05-24 05:40] LABS: Band 1 % (5-11); Eosinophils 7 % (0-10); Hemoglobin 7.9 g/dL (14.0-18.0); Lymphocytes 13 % (21-51); MDiff Complete? YES; Mean Corpuscular HGB CONC 34.3 g/dL (32.0-36.0); Mean Corpuscular Volume 93.3 fL (78.0-98.0); Mean Platelet Volume 7.7 fL (7.4-10.4); Monocytes 7 % (0-10); Neutrophil 72 % (42-75); Platelet Count 448 thou/uL (130-400); RBC Distribution Width 18.7 % (11.5-14.5); Red Blood Cell (RBC) Count 2.47 mill/uL (4.70-6.10)
[2019-05-24] MEDS: Cyanocobalamin (Vitamin B-12) 1,000 MCG TAB PO SCH (08:22)
[2019-05-24] MEDS: Tamsulosin HCl 0.4 MG CAP PO SCH (08:22)
[2019-05-24] MEDS: Sotalol HCl 80 MG TAB PO SCH ×2 (08:22→22:12)
[2019-05-24] MEDS: hydrALAZINE 25 MG TAB PO SCH ×3 (08:23→22:12)
[2019-05-24] MEDS: Acetaminophen 325 MG TAB PO PRN (08:23)
[2019-05-24] MEDS: Gabapentin 300 MG CAP PO SCH ×3 (08:23→22:12)
[2019-05-24] MEDS: Folic Acid 1 MG TAB PO SCH (08:23)
[2019-05-24] MEDS: Pantoprazole 40 MG VIAL IVP SCH ×2 (08:24→22:12)
[2019-05-24] MEDS: Potassium Chloride 20 MEQ TAB PO SCH (08:24)
[2019-05-24] MEDS ORDERED: PROPOFOL 200 MG/20 ML VIAL ONE (08:59)
[2019-05-24] MEDS ORDERED: ePHEDrine 50 MG/ML VIAL ONE (08:59)
[2019-05-24] MEDS ORDERED: PHENYLEPHRINE-NS 100 MCG/ML 10 ML SYRINGE ONE (08:59)
[2019-05-24] MEDS: Enoxaparin Sodium 40 MG/0.4 ML SYRINGE SC SCH (10:39)
[2019-05-24] MEDS: Furosemide 40 MG TAB PO SCH ×2 (10:39→17:23)
--- NOTE | 2019-05-24 10:48 | PDOC.HOSPP ---
- Subjective Encounter Date: 05/24/19 Encounter Time: 10:45 Subjective: f/u for acute/chronic anemia with unclear etiology. s/p 2u PRBC's and plans for endoscopy today. - Objective Vital Signs & Weight: Vital Signs (12 hours) Temp Pulse Resp BP Pulse Ox 05/24/19 07:55 97.9 F 92 14 161/70 H 95 05/24/19 07:16 80 12 05/24/19 04:55 97.9 F 88 16 122/57 L 93 L 05/24/19 01:57 97.4 F L 90 18 132/68 92 L 05/23/19 23:44 76 16 Weight Weight 193 lb I&O: 05/23/19 05/24/19 05/25/19 06:59 06:59 06:59 Intake Total 200 5000 Output Total 2425 2000 Balance -2225 3000 Result Diagrams: 05/24/19 04:24 05/23/19 05:55 Additional Labs: Accuchecks 05/24/19 05/23/19 05/23/19 05:56 20:37 18:06 POC Glucose 215 H 249 H 131 H 05/23/19 11:14 POC Glucose 243 H Laboratory Tests 03/21/19 05/02/19 05/03/19 04:14 16:35 05:30 WBC Hgb 8.3 L 5.5 L* 7.3 L Plt Count Hemoglobin A1c Iron TIBC Troponin I 05/03/19 05/04/19 05/22/19 08:35 09:18 17:50 WBC Hgb 7.2 L 8.1 L Plt Count Hemoglobin A1c Iron TIBC Troponin I 0.243 H 05/22/19 05/22/19 05/22/19 17:50 21:02 22:55 WBC 10.6 Hgb 6.4 L Plt Count 514 H Hemoglobin A1c Iron TIBC Troponin I 0.430 H* 0.519 H* 05/23/19 05/23/19 05/24/19 05:55 09:15 04:24 WBC 13.1 H Hgb 8.6 L Plt Count 491 H Hemoglobin A1c 8.5 H Iron 234 H TIBC 286 Troponin I EKG Reviewed by me: Yes (Tele - SR) Hospitalist ROS - Medication Medications: Active Medications Generic Name Dose Route Start Last Admin Trade Name Freq PRN Reason Stop Dose Admin Acetaminophen 650 mg 08/29/19 01:09 05/24/19 08:23 Tylenol PO 650 mg Q4H PRN Administration Headache/Fever/Mild Pain (1-3) Albuterol/Ipratropium 3 ml 05/23/19 07:00 05/24/19 07:16 Duoneb NEB 3 ml [id number] DELANEY Administration Atorvastatin Calcium 40 mg 05/23/19 21:00 05/23/19 21:25 Lipitor PO 40 mg HS DELANEY Administration Cyanocobalamin 1,000 mcg 05/23/19 09:00 05/24/19 08:22 Vitamin B-12 PO 1,000 mcg DAILY DELANEY Administration Enoxaparin Sodium 40 mg 05/23/19 09:00 05/24/19 10:39 Lovenox SC Not Given 0900 DELANEY Folic Acid 1 mg 05/23/19 09:00 05/24/19 08:23 Folvite PO 1 mg DAILY DELANEY Administration Furosemide 40 mg 05/23/19 14:00 05/24/19 10:39 Lasix PO Not Given 0900,1400 DELANEY Gabapentin 300 mg 05/23/19 09:00 05/24/19 08:23 Neurontin PO 300 mg TID DELANEY Administration Hydralazine HCl 25 mg 05/23/19 15:00 05/24/19 08:23 Apresoline PO 25 mg TID DELANEY Administration Insulin Human Lispro 0 units 05/23/19 01:09 05/23/19 13:35 Humalog SC 4 unit .MODERATE SLIDING SC PRN Administration Moderate Correctional Scale Isosorbide Mononitrate 30 mg 05/23/19 12:00 05/23/19 13:02 Imdur Er PO 30 mg 1200 DELANEY Administration Pantoprazole Sodium 40 mg 05/23/19 09:00 05/24/19 08:24 Protonix IVP 40 mg Q12HR DELANEY Administration Potassium Chloride 20 meq 05/23/19 08:00 05/24/19 08:24 K-Dur PO 20 meq QAM-WM DELANEY Administration Sotalol HCl 80 mg 05/23/19 09:00 05/24/19 08:22 Betapace PO 80 mg BID DELANEY Administration Tamsulosin HCl 0.4 mg 05/23/19 09:00 05/24/19 08:22 Flomax PO 0.4 mg DAILY DELANEY Administration - Exam General Appearance: NAD, awake alert Eye: PERRL, anicteric sclera ENT: normocephalic atraumatic, no oropharyngeal lesions Neck: supple, symmetric, no JVD, no thyromegaly Heart: RRR, no gallops, no rubs, normal peripheral pulses Respiratory: CTAB, no rales, no ronchi Gastrointestinal: soft, non-tender, non-distended, normal bowel sounds, no palpable masses, no guarding Extremities: no cyanosis, no clubbing, no edema Skin: normal turgor, no lesions Neurological: CN's grossly intact, no focal deficits, no new deficit Musculoskeletal: normal tone, normal strength Psychiatric: normal affect, normal behavior, A&O x 3 Hosp A/P (1) Symptomatic anemia Code(s): D64.9 - ANEMIA, UNSPECIFIED Status: Acute Plan: s/p 2u PRBC's, Endoscopy today, serial H/H monitoring, d/c Lovenox (2) NSTEMI (non-ST elevated myocardial infarction) Code(s): I21.4 - NON-ST ELEVATION (NSTEMI) MYOCARDIAL INFARCTION Status: Acute Plan: Type II, Demand ischemic state, continue med mgmt (3) DM II (diabetes mellitus, type II), controlled Code(s): E11.9 - TYPE 2 DIABETES MELLITUS WITHOUT COMPLICATIONS Status: Chronic Plan: ISS, resume Amaryl once taking po, serial accuchecks (4) CAD (coronary artery disease) Code(s): I25.10 - ATHSCL HEART DISEASE OF [place] CORONARY ARTERY W/O ANG PCTRS Status: Chronic - 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
--- NOTE | 2019-05-24 11:00 | CON ---
DATE OF CONSULTATION: HISTORY OF PRESENT ILLNESS: The patient is a 78-year-old gentleman, who presented with marked weakness and dyspnea. The patient has a long history of coronary artery disease. He has previously undergone coronary artery bypass graft surgery. He has had a HAYES placed to the LAD, saphenous vein graft to an OM and PDA. He suffered a non-Q-wave myocardial infarction in February of this year. He underwent a cardiac catheterization. He subsequently underwent PTCA and stent placement into the right coronary artery. Three of the four bypasses were patent. The patient has been on medical therapy. He presented earlier this month with severe anemia. He was taken off. His medications were adjusted and he was sent home on aspirin. He presents once again markedly weak and dyspneic. He was found to have a markedly low hemoglobin. The patient denied having any chest discomfort. He reports feeling dyspneic. PAST MEDICAL HISTORY: Significant for, 1. Coronary artery disease. 2. History of paroxysmal atrial fibrillation. 3. Hypertension. 4. Dyslipidemia. 5. Renal stones. PAST SURGICAL HISTORY: He had coronary artery bypass surgery, spinal surgery, cataract surgery, tonsillectomy, appendectomy. SOCIAL HISTORY: Former smoker. MEDICATIONS: See nursing list. FAMILY HISTORY: REVIEW OF SYSTEMS: Ten-point systems otherwise unremarkable, otherwise unremarkable. PHYSICAL EXAMINATION: GENERAL: This is a pale-looking gentleman, in no acute distress. VITAL SIGNS: Blood pressure 161/70. NECK: No jugular venous distention. LUNGS: Clear to auscultation. HEART: Regular rate and rhythm. Normal S1 and S2. There are no murmurs on the cardiac exam. ABDOMEN: Nondistended. EXTREMITIES: Showed no edema. VASCULAR: Radial pulses 2+. LABORATORY DATA: White blood cell count 10.6, hemoglobin 6.4, hematocrit 19.3, platelets 514. His sodium was 139, potassium 3.6, chloride 103, bicarbonate 24, BUN 12, creatinine 0.9, glucose 333. His INR was 1.2. IMAGING STUDIES: His EKG revealed him to have normal sinus rhythm with a nonspecific T-wave abnormality. IMPRESSION: 1. Severe symptomatic anemia. 2. Type 2 myocardial infarction. 3. History of coronary artery bypass surgery. 4. History of percutaneous transluminal coronary angioplasty and stent placement. 5. Atrial fibrillation, status post left atrial appendage ligation. 6. Diabetes mellitus. This gentleman presents severely anemic. He has been transfused. He is undergoing a GI evaluation today. From a Cardiac standpoint, his aspirin will need to be held. Further recommendations will follow. Job ID: [id number]
[2019-05-24] MEDS ORDERED: Ketamine 50 MG/ML (10ML VIAL) ONE (15:26)
[2019-05-24] MEDS ORDERED: Promethazine HCl 25 MG/ML VIAL IM PRN (16:30)
[2019-05-24] MEDS ORDERED: Promethazine HCl 25 MG/ML VIAL SLOW IVP PRN (16:30)
[2019-05-24] MEDS ORDERED: Ondansetron HCl/PF 4 MG/2 ML Vial IVP PRN (16:30)
[2019-05-24] MEDS: Isosorbide Mononitrate (ER) 30 MG TAB PO SCH (17:23)
--- NOTE | 2019-05-24 20:16 | OP ---
DATE OF PROCEDURE: 05/24/2019 PROCEDURES PERFORMED: Esophagogastroduodenoscopy with biopsy, colonoscopy with polypectomy. INDICATIONS FOR PROCEDURE: Symptomatic anemia, iron-deficiency anemia. HISTORY OF PRESENT ILLNESS: After explaining the risks and benefits of the procedures, including risks of bleeding, infection, perforation, reactions to anesthesia, aspiration and/or pain, informed consent was obtained. The patient was then taken to the endoscopy suite, where deep sedation was administered via propofol and Anesthesia support. Once adequate sedation was achieved, the standard gastroscope was introduced into the mouth with intubation of the esophagus, stomach, and the proximal small intestines with the findings listed below. Upon conclusion of this portion of the procedure, all equipments were removed from the patient and the bed was rotated 180 degrees in anticipation of the colonoscopy. After a digital rectal examination was performed, the standard colonoscope was then introduced into the rectum and advanced to the terminal ileum without difficulty. The quality of the prep was good. The patient tolerated the procedures well with no immediate perioperative complications. Upon conclusion of the colonoscopy, the patient was then transferred to PACU in satisfactory condition. EGD FINDINGS: Esophagus: Normal-appearing mucosa was seen in the proximal, mid , and distal esophagus. There was no evidence of erosions, ulcerations, mass lesions, or active/recent bleeding. Stomach: Normal-appearing mucosa was seen in the gastric cardia, body, greater curvature, antrum, and incisura. However, a white-appearing 2 to 3 mm polyp was seen in the gastric fundus and completely removed with biopsy forceps and placed in a specimen jar for evaluation. Otherwise, no evidence of erosions, ulcerations, mass lesions, or active/recent bleeding. Duodenum: Normal-appearing mucosa was seen in the duodenal bulb as well as in the second portion of the duodenum. There was no evidence of erosions, ulcerations, mass lesions, or active/recent bleeding. Random duodenal biopsies were then obtained for possible celiac disease. IMPRESSION: 1. 2 to 3 mm white-appearing gastric polyp, status post biopsies. 2. Otherwise normal upper endoscopy. 3. No etiology for patient's anemia was seen during this portion of the exam. COLONOSCOPY FINDINGS: Digital rectal exam: Small external hemorrhoids were seen on external examination. Colon findings: Normal-appearing mucosa was seen within the terminal ileum as well as at the ileocecal valve, appendiceal orifice and within the cecum itself. A 5 to 6 mm sessile polyp was seen in the proximal ascending colon and completely removed with snare cautery polypectomy. It was retrieved and placed in a specimen jar for evaluation. Normal-appearing mucosa was then seen in the distal ascending, transverse, and descending colon. Multiple small and large diverticula were seen throughout the sigmoid colon and was severe in appearance. A 6 to 7 mm polyp was also seen in the rectum and completely removed with snare cautery polypectomy. It was retrieved and placed in a specimen jar for evaluation. On rectal retroflexion, small internal hemorrhoids were noted. IMPRESSION: 1. A 5 to 6 mm ascending colon polyp, status post snare cautery polypectomy. 2. A 6 to 7 mm rectal polyp, status post snare cautery polypectomy. 3. Severe sigmoid diverticulosis. 4. Both internal and external hemorrhoids. 5. No etiology for the patient's anemia was seen during this exam. RECOMMENDATIONS: 1. Would continue to trend his H and H and transfuse as necessary to maintain an H and H of 7/21. 2. Continue to monitor clinically for signs of active GI bleeding. 3. Given the negative findings on endoscopy today, would consider a non-GI source of his anemia. 4. We will start the patient back on a solid diet. 5. Would continue with iron supplementation. 6. If he continues to have decrease in H/H, would consider a tagged RBC scan for further localization 7. Would have the patient follow up in the GI Clinic in 2 to 3 weeks for further evaluation of his anemia and possible capsule endoscopy at that time. We will sign off at this time. Please call with any additional questions. Job ID: [id number] [facility]
[2019-05-24] MEDS: Atorvastatin Calcium 40 MG TAB PO SCH (22:12)
[2019-05-25 05:41] LABS: Anisocytosis SLIGHT = 6-15 cells (100X) (0-5/hpf); Band 1 % (5-11); Eosinophils 7 % (0-10); Hemoglobin 7.5 g/dL (14.0-18.0); Lymphocytes 20 % (21-51); MDiff Complete? YES; Mean Corpuscular HGB CONC 33.1 g/dL (32.0-36.0); Mean Corpuscular Hemoglobin 31.5 pg (27.0-31.0); Mean Corpuscular Volume 95.1 fL (78.0-98.0); Mean Platelet Volume 7.8 fL (7.4-10.4); Monocytes 7 % (0-10); Neutrophil 65 % (42-75); Platelet Count 448 thou/uL (130-400); Platelet Morphology Comment Appears Increased; RBC Distribution Width 18.6 % (11.5-14.5); Red Blood Cell (RBC) Count 2.39 mill/uL (4.70-6.10); White Blood Cell (WBC) Count 10.1 thou/uL (4.8-10.8)
[2019-05-25] MEDS ORDERED: Aspirin 81 mg Enteric Coated Tablet PO SCH (09:00)
[2019-05-25] MEDS: Potassium Chloride 20 MEQ TAB PO SCH (09:12)
[2019-05-25] MEDS: Tamsulosin HCl 0.4 MG CAP PO SCH (09:13)
[2019-05-25] MEDS: hydrALAZINE 25 MG TAB PO SCH (09:13)
[2019-05-25] MEDS: Gabapentin 300 MG CAP PO SCH (09:13)
[2019-05-25] MEDS: Sotalol HCl 80 MG TAB PO SCH (09:13)
[2019-05-25] MEDS: Folic Acid 1 MG TAB PO SCH (09:14)
[2019-05-25] MEDS: Cyanocobalamin (Vitamin B-12) 1,000 MCG TAB PO SCH (09:14)
[2019-05-25] MEDS: Pantoprazole 40 MG VIAL IVP SCH (09:14)
[2019-05-25] MEDS: Furosemide 40 MG TAB PO SCH (09:14)
[2019-05-25] MEDS: HumaLOG 300 UNITS/3 ML VIAL SC PRN (11:03)
[2019-05-25] MEDS: Isosorbide Mononitrate (ER) 30 MG TAB PO SCH (11:03)
[2019-05-25 11:13] VITALS: BP 114/54; TEMP 97.8
--- NOTE | 2019-05-26 04:22 | DIS ---
DATE OF ADMISSION: 05/23/2019 DATE OF DISCHARGE: 05/25/2019 DISCHARGE DIAGNOSES: 1. Symptomatic anemia, unclear etiology, status post 2 units of packed red blood cells. 2. Non-ST elevation myocardial infarction, type 2, in the context of demand ischemia. Medical management. 3. Diabetes mellitus, type 2, stable. 4. Coronary artery disease, stable. 5. Sigmoid diverticulosis. CONSULTATIONS: Dr. Raphael with GI Service. Dr. Sanders with Cardiology Service. PERTINENT LAB AND X-RAY FINDINGS: Hemoglobin A1c 8.5. Serum iron level 234, TIBC 286. LFTs within normal limits. Troponin I ranged between 0.243 to 0.519. CBC showed a white blood cell count ranged between 10.1 to 13.1, hemoglobin ranged between 6.4 to 8.6, and MCV 95. Stool Hemoccult dated 05/22/2019 negative x1. EGD/colonoscopy dated 05/24/2019 showed gastric polyp, otherwise negative upper endoscopy. Colonoscopy exam showed polyps in the ascending colon and rectal region, status post snare cautery with polypectomy. Severe sigmoid diverticulosis noted. Internal and external hemorrhoids noted. HOSPITAL COURSE: The patient was initially admitted to the telemetry unit after presenting with symptomatic anemia. The patient's initial hemoglobin at 6.4, receiving 2 units of packed red blood cells. The patient with prior history of acute on chronic anemia with recent hospitalization in early April 2019, receiving 2 units of packed red blood cells during that admission. The patient underwent general evaluation by the GI Service with eventual EGD and colonoscopy exam, not identifying a significant source of GI blood loss. The patient was noted with findings as described previously and recommendations were for serial H and H monitoring as well as iron supplementation. Overall, the patient did remain clinically stable during the hospital course, tolerating regular oral intake and ambulating short distances. I have examined the patient at the time of discharge and discussed followup instructions. The patient verbalized understanding and in agreement, ready for discharge on 05/25/2019. DISCHARGE MEDICATIONS: 1. Lasix 40 mg p.o. b.i.d. 2. Amaryl 4 mg p.o. b.i.d. 3. Sotalol 80 mg p.o. b.i.d. 4. Flomax 0.4 mg p.o. daily. 5. Enteric-coated aspirin 81 mg p.o. daily. 6. Lipitor 40 mg p.o. at bedtime. 7. Plavix 75 mg p.o. daily. 8. Vitamin B12 1000 mcg p.o. daily. 9. Ferrous sulfate 325 mg p.o. daily. 10. Folic acid 1 mg p.o. daily. 11. Gabapentin 300 mg p.o. t.i.d. 12. Isosorbide mononitrate 30 mg p.o. daily. 13. K-Dur 20 mEq p.o. daily. 14. Nitroglycerin 0.4 mg sublingually q.5 minutes p.r.n. chest pain. FOLLOWUP: The patient is to follow up with Dr. Edmundo Rene within 7 days of discharge. The patient will follow up with Dr. Sherwin Raphael with GI Service in 2 weeks. CONDITION ON DISCHARGE: Fair. ACTIVITY: Ad-emelyn. DIET: ADA and heart healthy. SPECIAL INSTRUCTIONS: Repeat CBC at first followup visit with PCP. CODE STATUS: Full. DISPOSITION: Home on 05/25/2019. Total time preparing and coordinating discharge is 32 minutes. Job ID: [id number]
--- NOTE | 2019-05-28 03:26 | PQF ---
[employer] Consultant Crystal Reports Winform Viewer WILLIAM VALLEJO CHARLES DO [id number] CLINICAL DOCUMENTATION CLARIFICATION FORM: POST DISCHARGE Addendum to original discharge summary date: ____ Late entry note date: __ DATE: 05/28/19 ATTN: Dangelo Crowell Please exercise your independent, professional judgment in responding to the clarification form. Clinical indicators are provided on the bottom of this form for your review Can you please further specify if GI bleeding is ruled in or ruled out [ x ] Ruled in diagnosis [ x ] Continue to treat [ ] Resolved [ ] Ruled out diagnosis [ ] Cannot rule out diagnosis [ ] Other diagnosis [ ] Unable to determine In addition, please specify the etiology of GI Bleed if it is ruled in [ ] GI bleed due to Sigmoid diverticulosis [ ] GI bleed due to hemorrhoids [ x ] GI bleed of unknown etiology [ ] Other diagnosis please specify: [ ] Unable to determine In addition, please specify: Present on Admission (POA): [ x ] Yes [ ] No [ ] Unable to determine For continuity of documentation, please document condition throughout progress notes and discharge summary. Thank You. CLINICAL INDICATORS H and P pg.1- "He had some fresh blood from standing on the toilet paper" DS 05/25 pg.1- "Patient was initially admitted to telemetry unit after presenting with symptomatic anemia" DS 05/25 pg.1- "The patient underwent general evaluation by the GI Service with eventual EGD and colonoscopy exam, not identifying a significant source of GI blood loss" DS 05/25 pg.1- "Sigmoid diverticulosis" DS 05/25 pg.1- "Colonoscopy exam showed polyps in the ascending colon and rectal region, status post snare cautery with polypectomy" DS 8/31 pg.1-"Internal and external hemorrhoids noted" RISK FACTORS Symptomatic anemia-H and P pg.1 Recently hospitalization with hemoglobin of 5.5-H and P pg.1 TREATMENTS EGD with biopsy- OP Report pg05/24 Polypectomy-OP Report pg05/24 Colonoscopy- OP Report pg05/24 Blood transfusion- Blood Bank GI Consult- Dr. Raphael IV Fluids- NOV 30 (This form is maintained as a part of the permanent medical record) 2014 [employer]. All Rights Reserved Dorian [email or web address] [not provided] MTDD
== END 2019-05-25 14:00 | disposition home or self-care (01) | DRG 377 ==
LOC: ERS 16:56 → ERHOLD 20:00 → OBSVTOIN 05-23 01:04 → 2NO 05-23 01:43
PROVIDERS: ADMIT Internal Medicine; ATTEND Internal Medicine
PROC: 30233N1 Transfusion of Nonautologous Red Blood Cells into Peripheral Vein, Percutaneous Approach (ICD-10-PCS; principal; 2019-05-22)
PROC: 0DB78ZX Excision of Stomach, Pylorus, Via Natural or Artificial Opening Endoscopic, Diagnostic (ICD-10-PCS; 2019-05-24)
PROC: 0DB98ZX Excision of Duodenum, Via Natural or Artificial Opening Endoscopic, Diagnostic (ICD-10-PCS; 2019-05-24)
PROC: 0DBK8ZZ Excision of Ascending Colon, Via Natural or Artificial Opening Endoscopic (ICD-10-PCS; 2019-05-24)
PROC: 0DBP8ZZ Excision of Rectum, Via Natural or Artificial Opening Endoscopic (ICD-10-PCS; 2019-05-24)
DX: K92.2 Gastrointestinal hemorrhage, unspecified (principal); I21.A1 Myocardial infarction type 2; D50.9 Iron deficiency anemia, unspecified; E11.9 Type 2 diabetes mellitus without complications; I10 Essential (primary) hypertension; I25.10 Atherosclerotic heart disease of native coronary artery without angina pectoris; I48.0 Paroxysmal atrial fibrillation; K64.4 Residual hemorrhoidal skin tags; K57.30 Diverticulosis of large intestine without perforation or abscess without bleeding; E78.5 Hyperlipidemia, unspecified; K64.8 Other hemorrhoids; K63.5 Polyp of colon; Z95.1 Presence of aortocoronary bypass graft; Z90.49 Acquired absence of other specified parts of digestive tract; Z79.82 Long term (current) use of aspirin; Z79.899 Other long term (current) drug therapy; Z79.84 Long term (current) use of oral hypoglycemic drugs; Z87.891 Personal history of nicotine dependence; Z95.5 Presence of coronary angioplasty implant and graft; I25.2 Old myocardial infarction
CPT/HCPCS: 36415; 36416; 36430; 80048; 80053; 82274; 82553; 83036; 83540; 83550; 84484; 85007; 85025; 85027; 85610; 85730; 86850; 86900; 86901; 93005; 94640; 94760; C9113; J1650; J1940; J1953; J1956; J2704; J3490; J7620; P9016

== ENCOUNTER 2019-05-25 14:14 | Observation (INO) | payer MEDICARE, OTHER ==
--- NOTE | 2019-05-25 14:57 | CT ---
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 Atrophy and chronic white matter ischemic change. No focal mass or midline shift. No intra or extra-axial hemorrhage. The visualized sinuses and mastoids are clear of acute process. IMPRESSION: No mass or bleed or other significant acute intracranial process.
[2019-05-25 15:06] LABS: #Basophils 0.1 thou/uL (0.0-0.2); #Eosinphils 0.5 thou/uL (0.0-0.7); #Lymphocytes 2.1 thou/uL (1.20-3.40); #Monocytes 0.8 thou/uL (0.11-0.59); #Neutrophils 7.5 thou/uL (1.40-6.50); %Basophils 0.8 % (0.0-1.0); %Eosinophils 4.5 % (0.0-10.0); %Lymphocytes 19.1 % (21.0-51.0); %Monocytes 7.1 % (0.0-10.0); %Neutrophils 68.5 % (42.0-75.0); Hemoglobin 6.6 g/dL (14.0-18.0); Mean Corpuscular HGB CONC 34.3 g/dL (32.0-36.0); Mean Corpuscular Volume 93.4 fL (78.0-98.0); Mean Platelet Volume 7.7 fL (7.4-10.4); Platelet Count 388 thou/uL (130-400); RBC Distribution Width 18.4 % (11.5-14.5); Red Blood Cell (RBC) Count 2.07 mill/uL (4.70-6.10)
[2019-05-25 15:10] LABS: ALT (SGPT) 8 U/L (8-55); AST (SGOT) 8 U/L (5-34); Albumin 3.5 g/dL (3.4-4.8); Alkaline Phosphatase 88 U/L (40-150); Anion Gap 17 mmol/L (10-20); BUN (Urea Nitrogen) 15 mg/dL (8.4-25.7); Bilirubin, Total 1.1 mg/dL (0.2-1.2); CK (CPK) 41 U/L (30-200); Calc. Creatinine Clearance 0 mL/min (70-130); Carbon Dioxide 22 mmol/L (23-31); Chloride 102 mmol/L (98-107); Estimated GFR-MDRD 72; Globulin 2.2 g/dL (2.4-3.5); Glucose 171 mg/dL (83-110); Potassium 4.2 mmol/L (3.5-5.1); Protein, Total 5.7 g/dL (5.8-8.1); Sodium 137 mmol/L (136-145)
[2019-05-25 15:35] LABS: CKMB 1.3 ng/mL (0-6.6)
[2019-05-25] MEDS ORDERED: Acetaminophen 325 MG TAB PO PRN (16:16)
[2019-05-25] MEDS ORDERED: Dextrose 50% Abboject 50 ML SYRINGE SLOW IVP PRN (16:29)
[2019-05-25] MEDS ORDERED: HumaLOG 300 UNITS/3 ML VIAL SC PRN (16:29)
[2019-05-25] MEDS ORDERED: Dextrose 5% in Water 1,000 ML IV PRN (16:29)
[2019-05-25] MEDS ORDERED: Sodium Chloride 0.9% 1,000 ML IV SCH (16:30)
[2019-05-25 18:06] LABS: Troponin I 0.295 ng/mL (< 0.028)
[2019-05-25 20:12] LABS: Lactic Acid 1.2 mmol/L (0.5-2.2)
[2019-05-25 22:08] LABS: Hemoglobin 8.2 g/dL (14.0-18.0)
[2019-05-25 22:31] LABS: Troponin I 0.288 ng/mL (< 0.028)
[2019-05-25] MEDS: Famotidine 20 MG TAB PO SCH (23:03)
[2019-05-25] MEDS: Pantoprazole 40 MG VIAL IVP SCH (23:04)
[2019-05-25] MEDS: Senokot S 8.6-50 MG TAB PO SCH (23:04)
--- NOTE | 2019-05-25 23:12 | HP ---
PRIMARY CARE PHYSICIAN: Dr. Edmundo Rene. CHIEF COMPLAINT: Syncope. HISTORY OF PRESENT ILLNESS: Mr. Delcid is a very pleasant 78-year-old man, who was actually discharged from this facility with symptomatic anemia, which had resolved prior to discharge. He was taken out to his car. Evidently when he stood up, he was standing there for few minutes. Evidently the nurse took him out and had already left and went back inside. He reports that he got potentially overheated, got woozy before he could get into his car. He passed out. Reports that he hit his head and had a laceration to the back of his head. He denies he is in any current pain and other than the laceration on his head, feels similar to how he did prior to discharge this morning. The patient reports that he felt great this morning, was okay with the discharge, was feeling better, but then he went outside, things got overheated, and syncopized. He was admitted to this facility on 05/23/2019 for symptomatic anemia. He felt very tired on minimal exertion, could only walk 25 feet. When he was evaluated on this last admission, his hemoglobin was 6.4. He was transfused with 2 units of packed red blood cells. He underwent an EGD and a colonoscopy, which was indeterminate and cause of bleeding. He has been on Plavix and aspirin as he had a CABG with four-vessel done in January of this year. He had postop complications that needed to be repaired and the stent and for that reason, he has been on aspirin and Plavix. The patient as mentioned earlier, was feeling better and was discharged home. The patient will now be readmitted. Hemoglobin on this ER visit was down again to 6.6. We will transfuse another 2 units of blood and observe overnight. PAST MEDICAL HISTORY: Coronary artery disease, hypertension, diabetes type 2. PAST SURGICAL HISTORY: CABG x4 vessel, tonsillectomy, appendectomy. PSYCHIATRIC HISTORY: None. FAMILY HISTORY: Reviewed and noncontributory to current admission. SOCIAL HISTORY: The patient is a former smoker, quit in the . Code status is full. REVIEW OF SYSTEMS: The patient reports syncopizing earlier today, feeling woozy, has some discomfort around the sacrum from lying in bed. It is alleviated when he is able to change positions. There is some redness to his sacrum. Denied any pain from the fall. Otherwise, all other systems are reviewed and are negative unless mentioned in the HPI. PHYSICAL EXAMINATION: VITAL SIGNS: Blood pressure 107/55, pulse is 77, respiratory rate 16, pain is zero, pO2 saturations are 100% on room air. GENERAL: He is alert and oriented to person, place, and time, is in no apparent distress. HEENT: Head has a laceration in the occipital about 3 cm. He is normocephalic. Eyes; eyelids normal to inspection. Pupils are equal, round, and reactive to light. ENT; mucous membranes are dry. Mouth exam is normal. NECK: Normal range of motion. Trachea is midline. RESPIRATORY/CHEST: Breath sounds are clear. Chest movement symmetrical. CARDIOVASCULAR: Regular heart rate and rhythm. Heart sounds are normal. ABDOMEN: Nontender. Bowel sounds are heard. BACK: Normal range of motion. No CVA tenderness. EXTREMITIES: Upper extremity; normal inspection, normal range of motion, radial pulses equal bilaterally. Lower extremity; normal inspection, normal range of motion, pedal pulses are equal bilaterally. NEUROLOGIC: He is alert and oriented to person, place, time. Speech is normal. No focal motor or sensory deficits are noted. SKIN: Pale, warm to the touch. PSYCHIATRIC: Has a normal affect. DIAGNOSTIC STUDIES: EKG in the emergency room shows normal sinus rhythm, beats per minute 74. Prolonged QT. ST segments are normal. LABORATORY DATA: Troponin 0.401, which is actually lower than the 2 values earlier this week. Carbon dioxide 22, , globulin 22. White blood cell count is 11, hemoglobin 6.6, hematocrit 19.4, and platelet count is 388. Lactic acid is 3.1. IMAGING STUDIES: The patient had a brain CT without contrast, which was negative for acute process. ASSESSMENT/PLAN: 1. The patient had a thorough GI workup for bleeding source with this week. He was feeling better. Hemoglobin had improved. The patient was discharged home. We will readmit as hemoglobin has come down to 6.6, transfuse 2 units of packed red blood cells. We will gently hydrate normal saline at 75 mL per hour. We will hold the Plavix and the aspirin. We will give the Protonix b.i.d. We will do serial H and H. 2. Diabetes mellitus type 2. We will check Accu-Cheks a.c. h.s. sliding scale for coverage right now. Once home medications are reconciled potentially, restart those. 3. Hypertension. We will trend. Restart home medications. 4. SCDs for deep venous thrombosis prophylaxis. 5. Case was discussed with Dr. Barlow, who agrees to plan. 6. Hospital course and on clinical findings. Job ID: [id number]
[2019-05-26 05:57] LABS: #Eosinphils 0.5 thou/uL (0.0-0.7); #Lymphocytes 2.2 thou/uL (1.20-3.40); #Monocytes 0.7 thou/uL (0.11-0.59); #Neutrophils 7.1 thou/uL (1.40-6.50); %Basophils 0.5 % (0.0-1.0); %Eosinophils 4.7 % (0.0-10.0); %Lymphocytes 20.5 % (21.0-51.0); %Monocytes 6.8 % (0.0-10.0); %Neutrophils 67.5 % (42.0-75.0); Hemoglobin 8.8 g/dL (14.0-18.0); Mean Corpuscular Hemoglobin 32.1 pg (27.0-31.0); Mean Corpuscular Volume 94.3 fL (78.0-98.0); Mean Platelet Volume 7.7 fL (7.4-10.4); Platelet Count 387 thou/uL (130-400); RBC Distribution Width 16.9 % (11.5-14.5); Red Blood Cell (RBC) Count 2.74 mill/uL (4.70-6.10); White Blood Cell (WBC) Count 10.5 thou/uL (4.8-10.8)
[2019-05-26 06:13] LABS: Anion Gap 12 mmol/L (10-20); BUN (Urea Nitrogen) 12 mg/dL (8.4-25.7); Calc. Creatinine Clearance 0 mL/min (70-130); Calcium 8.6 mg/dL (7.8-10.44); Carbon Dioxide 25 mmol/L (23-31); Chloride 102 mmol/L (98-107); Estimated GFR-MDRD 80; Glucose 222 mg/dL (83-110); Potassium 3.8 mmol/L (3.5-5.1); Sodium 135 mmol/L (136-145)
[2019-05-26 07:40] VITALS: BMI 27.3
[2019-05-26] MEDS: Famotidine 20 MG TAB PO SCH (09:21)
[2019-05-26] MEDS: Pantoprazole 40 MG VIAL IVP SCH (09:22)
[2019-05-26] MEDS: Senokot S 8.6-50 MG TAB PO SCH (09:22)
[2019-05-26 10:27] LABS: Hemoglobin 8.9 g/dL (14.0-18.0)
[2019-05-26 12:11] VITALS: TEMP 97.5
[2019-05-26 12:13] VITALS: BP 146/68
--- NOTE | 2019-05-26 12:33 | DIS ---
DATE OF ADMISSION: 05/25/2019 DATE OF DISCHARGE: 05/26/2019 DISCHARGE DIAGNOSES: 1. Near syncope, likely multifactorial including heat syncope in addition to volume depletion and dehydration. 2. Acute on chronic normocytic anemia, status post 2 units of packed red blood cells with negative endoscopy. 3. Non-ST elevation myocardial infarction type 2 secondary to demand ischemia. 4. Diabetes mellitus, type 2, stable. 5. Coronary artery disease, status post coronary artery bypass grafting. CONSULTATIONS: None. PERTINENT LABORATORY AND X-RAY FINDINGS: Lactic acid level 1.2. Troponin I ranged between 0.288 to 0.401. Lactic acid level ranged between 1.2 to 3.1. CBC showed a hemoglobin ranging between 6.6 to 8.9, MCV 94. CT of the brain without contrast dated 05/25/2019, showed no acute intracranial process. HOSPITAL COURSE: The patient was initially observed after recent discharge on 05/25/2019, for symptomatic anemia. The patient with near syncopal event, likely multifactorial including heat syncope in addition to volume depletion and dehydration. The patient received intravenous fluids as well as 2 units of packed red blood cells. After extensive recent GI workup including EGD and colonoscopy on 05/24/2019, with negative findings. The patient sustained a small laceration to his occipital region given local wound care and hemostatic. Telemetry monitoring showed a sinus mechanism without acute arrhythmia or dysrhythmia. The patient did receive IV fluids and was noted with regular p.o. intake. The patient was observed ambulating in the halls without assistance or difficulty and vital signs remained stable throughout the hospital course. I have examined the patient at the time of discharge and discussed followup instructions. The patient verbalized understanding and in agreement and ready for discharge on 05/26/2019. DISCHARGE MEDICATIONS: 1. Glimepiride 4 mg p.o. b.i.d. 2. Sotalol 80 mg p.o. b.i.d. 3. Flomax 0.4 mg p.o. daily. 4. Enteric-coated aspirin 81 mg p.o. daily. 5. Lipitor 40 mg p.o. at bedtime. 6. Plavix 75 mg p.o. daily. 7. Vitamin B12 of 1000 mcg p.o. daily. 8. Ferrous sulfate 325 mg p.o. daily. 9. Folic acid 1 mg p.o. daily. 10. Lasix 20 mg p.o. daily. 11. Neurontin 300 mg p.o. t.i.d. p.r.n. 12. Imdur 30 mg p.o. daily. 13. Potassium chloride 20 mEq p.o. q.a.m. FOLLOWUP: The patient may follow up with his primary care provider, Dr. Edmundo Rene within 3 days of discharge. The patient will follow up with Dr. Sherwin Raphael with GI Service and to call his office for appointment, time, and date. CONDITION ON DISCHARGE: Stable. ACTIVITY: Ad-emelyn. DIET: Heart healthy and ADA. CODE STATUS: Full. DISPOSITION: To home on 05/26/2019. Job ID: [id number]
== END 2019-05-26 14:55 | disposition home or self-care (01) ==
LOC: ERS 14:14 → ERHOLD 15:40 → 2NO 21:44
PROVIDERS: ADMIT Internal Medicine; ATTEND Internal Medicine
DX: R55 Syncope and collapse (principal); E86.0 Dehydration; I25.10 Atherosclerotic heart disease of native coronary artery without angina pectoris; I10 Essential (primary) hypertension; I21.A1 Myocardial infarction type 2; D64.9 Anemia, unspecified; E11.9 Type 2 diabetes mellitus without complications; Z79.82 Long term (current) use of aspirin; Z79.84 Long term (current) use of oral hypoglycemic drugs; Z79.899 Other long term (current) drug therapy; Z87.891 Personal history of nicotine dependence; Z95.1 Presence of aortocoronary bypass graft
CPT/HCPCS: 12001; 36430 ×2; 70450; 80048; 80053; 82550; 82553; 82962 ×2; 83605; 84484 ×2; 85014 ×2; 85018 ×2; 85025 ×2; 86850; 86900; 86901; 86920; 93005; 96361; 96374; 96375; 99285; G0378 ×3; P9016 ×2; 36415; 36416; 96360; C9113

== ENCOUNTER 2019-06-12 21:34 | Observation (INO) | payer MEDICARE, OTHER ==
[2019-06-12 22:09] LABS: #Eosinphils 0.5 thou/uL (0.0-0.7); #Lymphocytes 1.8 thou/uL (1.20-3.40); #Monocytes 0.7 thou/uL (0.11-0.59); #Neutrophils 8.4 thou/uL (1.40-6.50); %Basophils 0.3 % (0.0-1.0); %Eosinophils 4.3 % (0.0-10.0); %Lymphocytes 15.9 % (21.0-51.0); %Monocytes 6.3 % (0.0-10.0); %Neutrophils 73.1 % (42.0-75.0); Hemoglobin 7.1 g/dL (14.0-18.0); Mean Corpuscular HGB CONC 33.5 g/dL (32.0-36.0); Mean Corpuscular Hemoglobin 31.6 pg (27.0-31.0); Mean Corpuscular Volume 94.4 fL (78.0-98.0); Mean Platelet Volume 7.6 fL (7.4-10.4); Platelet Count 401 thou/uL (130-400); RBC Distribution Width 16.3 % (11.5-14.5); Red Blood Cell (RBC) Count 2.26 mill/uL (4.70-6.10); White Blood Cell (WBC) Count 11.5 thou/uL (4.8-10.8)
[2019-06-12 22:28] LABS: ALT (SGPT) 10 U/L (8-55); AST (SGOT) 7 U/L (5-34); Albumin 3.8 g/dL (3.4-4.8); Alkaline Phosphatase 99 U/L (40-150); Anion Gap 12 mmol/L (10-20); BUN (Urea Nitrogen) 16 mg/dL (8.4-25.7); Bilirubin, Total 0.8 mg/dL (0.2-1.2); Calc. Creatinine Clearance 0 mL/min (70-130); Calcium 8.9 mg/dL (7.8-10.44); Carbon Dioxide 25 mmol/L (23-31); Chloride 105 mmol/L (98-107); Estimated GFR-MDRD 75; Globulin 1.9 g/dL (2.4-3.5); Glucose 301 mg/dL (83-110); Potassium 3.8 mmol/L (3.5-5.1); Protein, Total 5.7 g/dL (5.8-8.1); Sodium 138 mmol/L (136-145)
[2019-06-13 07:03] LABS: #Basophils 0.1 thou/uL (0.0-0.2); #Eosinphils 0.6 thou/uL (0.0-0.7); #Lymphocytes 2.1 thou/uL (1.20-3.40); #Monocytes 0.9 thou/uL (0.11-0.59); #Neutrophils 9.4 thou/uL (1.40-6.50); %Basophils 0.6 % (0.0-1.0); %Eosinophils 4.3 % (0.0-10.0); %Monocytes 6.7 % (0.0-10.0); %Neutrophils 72.4 % (42.0-75.0); Hemoglobin 8.7 g/dL (14.0-18.0); Mean Corpuscular HGB CONC 33.8 g/dL (32.0-36.0); Mean Corpuscular Hemoglobin 31.8 pg (27.0-31.0); Mean Platelet Volume 7.7 fL (7.4-10.4); Platelet Count 386 thou/uL (130-400); RBC Distribution Width 15.8 % (11.5-14.5); Red Blood Cell (RBC) Count 2.74 mill/uL (4.70-6.10)
--- NOTE | 2019-06-13 07:22 | RAD ---
CHEST 1 VIEW: Date: 06/13/19 INDICATION: Generalized weakness. COMPARISON: Prior exam dated 04/26/19. FINDINGS: There is cardiomegaly and pulmonary vascular congestion with small bilateral pleural effusions. Midli ne sternotomy changes are similar appearing. ACDF of lower cervical spine is similar appearing. No ac [place] osseous abnormality is evident. IMPRESSION: Cardiomegaly with worsening pulmonary vascular congestion and bilateral pleural effusions, suspicious for CHF. POS: [facility]
[2019-06-13] MEDS ORDERED: Senokot S 8.6-50 MG TAB PO PRN (09:06)
[2019-06-13] MEDS ORDERED: Ondansetron PF 4 MG/2 ML Vial IVP PRN (09:06)
[2019-06-13] MEDS ORDERED: Acetaminophen 325 MG TAB PO PRN (09:06)
[2019-06-13] MEDS ORDERED: Ondansetron ODT 4 MG TAB PO PRN (09:06)
[2019-06-13] MEDS ORDERED: Nitroglycerin 0.4 MG TAB (25 Tab Bottle) SL PRN (09:08)
[2019-06-13] MEDS ORDERED: Furosemide 40 MG/4 ML VIAL SLOW IVP SCH (11:30)
[2019-06-13] MEDS ORDERED: Isosorbide Mononitrate (ER) 30 MG TAB PO SCH (12:00)
[2019-06-13 12:02] LABS: Hemoglobin 8.2 g/dL (14.0-18.0)
[2019-06-13] MEDS ORDERED: Gabapentin 300 MG CAP PO SCH (15:00)
[2019-06-13 15:24] VITALS: BP 133/63; TEMP 98
--- NOTE | 2019-06-13 17:33 | HP ---
PRIMARY CARE PHYSICIAN: Dr. Edmundo Rene. CHIEF COMPLAINT: Symptomatic anemia. HISTORY OF PRESENT ILLNESS: Mr. Delcid is a 78-year-old man with a past medical history of hypertension, coronary artery disease, diabetes mellitus type 2, and chronic anemia, who had presented to [facility] earlier this morning after he experienced some weakness, lightheadedness, and overall not feeling well, and it was found that his hemoglobin was 7.1. He was ordered for 1 unit of blood transfusion. After the transfusion, his hemoglobin improved to 8.7. He had a recent admission within the last 2 to 3 weeks, and he underwent endoscopy with Dr. Raphael, which was found to be unremarkable and failed to find any source of his anemia. He had also followed with Dr. Nye as outpatient and had a scheduled followup next week. Currently, the patient denies any fever, chills, any headache, blurred vision, dizziness, any chest pain, palpitations, shortness of breath, abdominal pain, nausea, vomiting, or any change in stool. REVIEW OF SYSTEMS: All other systems reviewed and found to be negative unless mentioned in the HPI. PAST MEDICAL HISTORY: Hypertension, coronary artery disease, type 2 diabetes, anemia, and history of paroxysmal atrial fibrillation. PAST SURGICAL HISTORY: Coronary artery bypass graft surgery x4 vessels, tonsillectomy, and appendectomy. PSYCHIATRIC HISTORY: None. SOCIAL HISTORY: The patient denies alcohol, tobacco, or illicit drug use. KNOWN ALLERGIES: No known drug allergies. CURRENT HOME MEDICATIONS: 1. Aspirin 81 mg daily. 2. Clopidogrel 75 mg oral daily. 3. Atorvastatin 40 mg p.o. q.h.s. 4. Ferrous sulfate 325 mg oral daily. 5. Gabapentin 300 mg oral 3 times daily. 6. Glimepiride 4 mg oral twice daily. 7. Isosorbide 30 mg oral daily. 8. Nitroglycerin 0.4 mg sublingual every 5 minutes as needed for chest pain. 9. Potassium chloride 20 mEq p.o. daily. 10. Sotalol 80 mg oral twice daily. 11. Tamsulosin 0.4 mg p.o. daily. PHYSICAL EXAMINATION: VITAL SIGNS: Blood pressure 175/79, pulse 102, respirations 18, temperature 98.4, and O2 saturation 96% on 2 L of oxygen via nasal cannula. GENERAL: The patient is awake, alert, and oriented x3. He is currently lying comfortably in bed, in no acute distress. HEENT: Atraumatic and normocephalic. Pupils are round and reactive to light. Extraocular muscles intact. Moist mucous membranes noted. NECK: Soft, supple. Trachea midline. CARDIOVASCULAR: Positive S1 and S2. Regular rate and rhythm. No murmur auscultated. RESPIRATORY: Clear to auscultation bilaterally. No wheezes, rales, or rhonchi. ABDOMEN: Soft, nontender. Bowel sounds present. EXTREMITIES: He moves all extremities equal. Pedal and radial pulses 2+ bilaterally. 2+ edema noted on bilateral lower extremities. NEUROLOGIC: Cranial nerves 2 through 12 grossly intact. No focal deficits noted. Speech intact and normal. Gait not assessed. SKIN: Warm, dry, and intact. Skin is also pale. PSYCHIATRIC: Good mood and affect. LABORATORY DATA: WBC 13.0, RBC 2.74, hemoglobin 8.7, and platelets 386. Sodium 138, potassium 3.8, anion gap 12, BUN 16, creatinine 0.97, estimated GFR 75, and glucose 301. Troponin less than 0.010. BNP 594.5. DIAGNOSTIC IMAGING: Portable chest x-ray shows some cardiomegaly with worsening pulmonary vascular congestion and bilateral pleural effusion suspicious for CHF. ASSESSMENT AND PLAN: 1. Symptomatic anemia, the patient's hemoglobin currently improved after 1 unit of packed red blood cells. We will trend H and H and transfuse as needed. A consult for Dr. Wheeler was placed, he follows with Dr. Nye as outpatient. This is likely a non gastrointestinal cause as he has a recent normal endoscopy. 2. History of hypertension. Continue home regimen. 3. History of paroxysmal atrial fibrillation. Continue home dose of sotalol, however, hold anticoagulation at this time due to the patient's anemia. 4. History of chronic diastolic heart failure, continue home regimen and treat the patient with IV furosemide 20 mg daily. This is an increased dose of his home oral furosemide 20 mg daily. 5. Diabetes mellitus type 2. Continue home regimen and add insulin sliding scale with frequent Accu-Cheks. 6. History of coronary artery disease, currently stable at this time. 7. Deep venous thrombosis and gastrointestinal prophylaxis. 8. Code status, full code. 9. Surrogate decision maker is his spouse, Supriya. DISPOSITION: Pending further workup and clinical findings, the patient will likely be discharged home in the next 1 to 2 days once his labs and hemoglobin are stable. Job ID: [id number]
[2019-06-13] MEDS ORDERED: Famotidine 20 MG TAB PO SCH (21:00)
[2019-06-13] MEDS ORDERED: Atorvastatin Calcium 40 MG TAB PO SCH (21:00)
[2019-06-13] MEDS ORDERED: Sotalol HCl 80 MG TAB PO SCH (21:00)
[2019-06-13] MEDS ORDERED: Glimepiride 4 MG TAB PO SCH (21:00)
[2019-06-14] MEDS ORDERED: Potassium Chloride 20 MEQ TAB PO SCH (08:00)
[2019-06-14] MEDS ORDERED: Tamsulosin HCl 0.4 MG CAP PO SCH (09:00)
[2019-06-14] MEDS ORDERED: Ferrous Sulfate 325 MG TAB PO SCH (09:00)
[2019-06-14] MEDS ORDERED: Aspirin Chewable 81 MG TAB PO SCH (09:00)
[2019-06-14] MEDS ORDERED: Furosemide 20 MG/2 ML VIAL SLOW IVP SCH (09:00)
--- NOTE | 2019-06-15 13:37 | EKG ---
Test Reason : CP Blood Pressure : / mmHG Vent. Rate : 105 BPM Atrial Rate : 105 BPM P-R Int : 000 ms QRS Dur : 100 ms QT Int : 368 ms P-R-T Axes : 060 024 065 degrees QTc Int : 486 ms Sinus tachycardia Nonspecific ST and T wave abnormality Abnormal ECG Confirmed by MIKIE LAM ([id number]), loan expeditor PEREZ BERRIOS ([id number]) on 06/15/2019 1:37:36 PM Referred By: Confirmed By:MIKIE LAM
== END 2019-06-13 16:41 | disposition home or self-care (01) ==
LOC: ERS 21:34 → 2SW 06-13 03:22
PROVIDERS: ADMIT Hospitalist; ATTEND Hospitalist
DX: D64.9 Anemia, unspecified (principal); I11.0 Hypertensive heart disease with heart failure; I50.32 Chronic diastolic (congestive) heart failure; E11.9 Type 2 diabetes mellitus without complications; I25.10 Atherosclerotic heart disease of native coronary artery without angina pectoris; J90 Pleural effusion, not elsewhere classified; Z79.82 Long term (current) use of aspirin; Z79.84 Long term (current) use of oral hypoglycemic drugs; Z79.899 Other long term (current) drug therapy; Z95.1 Presence of aortocoronary bypass graft
CPT/HCPCS: 36430; 71045; 80053; 83880; 84484; 85014; 85018; 85025 ×2; 86850; 86900; 86901; 86920; 93005; 97139; 99285; G0378 ×2; P9016; 36415; J1940

== ENCOUNTER 2019-06-21 12:28 | Day surgery (SDC) | payer MEDICARE, OTHER ==
[2019-06-21 13:04] VITALS: BMI 28.5
[2019-06-21] MEDS ORDERED: Acetaminophen 500 MG TAB PO SCH (15:45)
[2019-06-21] MEDS ORDERED: diphenhydrAMINE 25 MG CAP PO SCH (15:45)
[2019-06-21 22:01] VITALS: BP 176/75; TEMP 98.2
[2019-06-21 22:31] LABS: #Basophils 0.1 thou/uL (0.0-0.2); #Eosinphils 0.5 thou/uL (0.0-0.7); #Lymphocytes 2.4 thou/uL (1.20-3.40); #Monocytes 0.7 thou/uL (0.11-0.59); #Neutrophils 7.3 thou/uL (1.40-6.50); %Basophils 0.5 % (0.0-1.0); %Eosinophils 4.5 % (0.0-10.0); %Lymphocytes 22.2 % (21.0-51.0); %Monocytes 6.6 % (0.0-10.0); %Neutrophils 66.2 % (42.0-75.0); Hemoglobin 8.8 g/dL (14.0-18.0); Mean Corpuscular HGB CONC 34.7 g/dL (32.0-36.0); Mean Corpuscular Hemoglobin 32.1 pg (27.0-31.0); Mean Corpuscular Volume 92.6 fL (78.0-98.0); Mean Platelet Volume 7.8 fL (7.4-10.4); Platelet Count 376 thou/uL (130-400); RBC Distribution Width 14.4 % (11.5-14.5); Red Blood Cell (RBC) Count 2.74 mill/uL (4.70-6.10)
== END 2019-06-21 22:17 | disposition home or self-care (01) ==
LOC: SDC/OP 12:28 → 2SW 12:40 → SDC/OP 22:17
PROVIDERS: ATTEND Nurse Practitioner Acute Care
PROC: 30233N1 Transfusion of Nonautologous Red Blood Cells into Peripheral Vein, Percutaneous Approach (ICD-10-PCS; principal; 2019-06-21)
DX: D64.9 Anemia, unspecified (principal); D69.6 Thrombocytopenia, unspecified; D63.8 Anemia in other chronic diseases classified elsewhere
CPT/HCPCS: 36430; 82728; 83540; 83550; 85025; 86850; 86900; 86901; 86920; P9016; 36415; Q0163

== ENCOUNTER 2019-07-08 10:49 | Emergency (ER) | payer MEDICARE, OTHER ==
[2019-07-08 12:24] LABS: #Eosinphils 0.3 thou/uL (0.0-0.7); #Lymphocytes 2.1 thou/uL (1.20-3.40); #Monocytes 0.6 thou/uL (0.11-0.59); #Neutrophils 6.5 thou/uL (1.40-6.50); %Basophils 0.5 % (0.0-1.0); %Eosinophils 3.5 % (0.0-10.0); %Lymphocytes 21.6 % (21.0-51.0); %Monocytes 6.6 % (0.0-10.0); %Neutrophils 67.9 % (42.0-75.0); Hemoglobin 6.6 g/dL (14.0-18.0); Mean Corpuscular HGB CONC 34.3 g/dL (32.0-36.0); Mean Corpuscular Hemoglobin 31.5 pg (27.0-31.0); Mean Corpuscular Volume 91.7 fL (78.0-98.0); Platelet Count 363 thou/uL (130-400); RBC Distribution Width 13.9 % (11.5-14.5); Red Blood Cell (RBC) Count 2.08 mill/uL (4.70-6.10); White Blood Cell (WBC) Count 9.6 thou/uL (4.8-10.8)
[2019-07-08 12:43] LABS: ALT (SGPT) 10 U/L (8-55); AST (SGOT) 7 U/L (5-34); Albumin 3.7 g/dL (3.4-4.8); Alkaline Phosphatase 79 U/L (40-110); Anion Gap 15 mmol/L (10-20); BUN (Urea Nitrogen) 12 mg/dL (8.4-25.7); Bilirubin, Total 1.3 mg/dL (0.2-1.2); Calc. Creatinine Clearance 0 mL/min (70-130); Calcium 8.7 mg/dL (7.8-10.44); Carbon Dioxide 24 mmol/L (23-31); Chloride 103 mmol/L (98-107); Estimated GFR-MDRD Greater than 90; Globulin 2.3 g/dL (2.4-3.5); Glucose 239 mg/dL (83-110); Potassium 3.6 mmol/L (3.5-5.1); Sodium 138 mmol/L (136-145)
--- NOTE | 2019-07-08 13:38 | RAD ---
CHEST 1 VIEW PORTABLE: Date: 07/08/19 HISTORY: Weakness. COMPARISON: 06/13/19. FINDINGS: Postop midline sternotomy. Minimal cardiomegaly with bilateral vascular congestion and small pleural effusions, somewhat larger on the left side, but overall stable. No new confluent pneumonia. IMPRESSION: 1. Overall stable appearing vascular congestion and pleural effusions and cardiomegaly. 2. Atherosclerosis of aorta. POS: [facility]
[2019-07-08 13:54] LABS: Bacteria/HPF 3+ HPF (None Seen); Bilirubin Negative (Negative); Blood, Urine Trace (Negative); Clarity Turbid (Clear); Glucose, Urine (Dipstick) 30 mg/dL (Negative); Leukocyte 500 Leu/uL (Negative); Nitrite Negative (Negative); Protein, Urine (Dipstick) 30 mg/dL (Neg-Trace); Squamous Epithelial 0-3 HPF (0-3); WBC/HPF Greater than 50 HPF (0-3)
[2019-07-08] MEDS ORDERED: Sodium Chloride 0.9% 100 ML ONE (18:21)
[2019-07-08] MEDS ORDERED: cefTRIAXone\\ROCEPHIN 1 GM VIAL ONE (18:21)
== END 2019-07-08 20:34 | disposition home or self-care (01) ==
LOC: ERS 10:49
DX: D64.9 Anemia, unspecified (principal); N39.0 Urinary tract infection, site not specified; E11.9 Type 2 diabetes mellitus without complications; I10 Essential (primary) hypertension; Z79.899 Other long term (current) drug therapy
CPT/HCPCS: 36430; 71045; 80053; 83880; 84484; 85025; 86850; 86900; 86901; 86920; 87086; 93005; P9016; 81003; 81015; 87077; 96365; J0696; J3490

== ENCOUNTER 2019-07-24 09:11 | Day surgery (SDC) | payer MEDICARE, OTHER ==
[2019-07-23 12:36] VITALS: BMI 29.0
[~2019-07-24 09:11] MED LIST: FLU VACC TS2019-20(65YR UP)/PF 180 MCG/0.5 ML SYRINGE IM ONE
[2019-07-24 09:28] LABS: INR-International Normal Ratio 1.1; PTT 29.1 SEC (22.9-36.1); Prothrombin Time 14.4 SEC (12.0-14.7)
[2019-07-24] MEDS ORDERED: Sodium Bicarbonate 2.5 MEQ/5 ML VIAL ONE (09:52)
[2019-07-24] MEDS ORDERED: Sodium Chloride 0.9% 10 ML ONE (09:52)
[2019-07-24 10:12] LABS: Hemoglobin 6.8 g/dL (14.0-18.0); Platelet Count 414 thou/uL (130-400)
[2019-07-24 10:22] VITALS: BP 109/49; TEMP 98.4
--- NOTE | 2019-07-24 14:52 | CT ---
PROCEDURE: CT guided bone marrow biopsy posterior left iliac spine. INDICATION: Aplastic anemia. FINDINGS: An 11 gauge Arrow biopsy instrument was used. A needle with trocar in place was introduced into the m arrow of the posterior left ilium under CT guidance. Approximately 10 mL of aspirate was given to pat heladio. Core bone biopsy was also obtained and given to pathology. PROCEDURE NOTE: The patient was placed prone on the CT table. The left posterior iliac spine was chosen for biopsy. O verlying skin was prepped and draped in a sterile manner. Local anesthesia was administered with lido naet. An 11 gauge needle with trocar in place was introduced under CT guidance into the posterior le ft ilium. CT confirmed the position of the needle within the marrow. Trocar was removed and aspirate was obtained and given to pathology. The needle was then retracted and trocar removed. Automated system was used to obtain core bone biops y, which was adequate and given to pathology for prep. Postprocedure CT showed no significant hematoma. The patient tolerated the procedure well. POS: [facility]
== END 2019-07-24 12:30 | disposition home or self-care (01) ==
LOC: CT 09:11
PROVIDERS: ATTEND Internal Medicine Hematology & Oncology
PROC: 07DR3ZX Extraction of Iliac Bone Marrow, Percutaneous Approach, Diagnostic (ICD-10-PCS; principal; 2019-07-24)
DX: D60.9 Acquired pure red cell aplasia, unspecified (principal); D61.9 Aplastic anemia, unspecified; M19.90 Unspecified osteoarthritis, unspecified site; E11.9 Type 2 diabetes mellitus without complications; I10 Essential (primary) hypertension; I48.91 Unspecified atrial fibrillation; I25.2 Old myocardial infarction; E78.5 Hyperlipidemia, unspecified; N40.0 Benign prostatic hyperplasia without lower urinary tract symptoms; Z87.891 Personal history of nicotine dependence; Z79.01 Long term (current) use of anticoagulants; Z79.02 Long term (current) use of antithrombotics/antiplatelets; Z79.2 Long term (current) use of antibiotics; Z79.82 Long term (current) use of aspirin; Z79.84 Long term (current) use of oral hypoglycemic drugs; Z79.899 Other long term (current) drug therapy
CPT/HCPCS: 20225; 36430; 77012; 80053; 85014; 85018; 85025; 85049; 85610 ×2; 85730 ×2; 86850; 86900; 86901; 86920; 88184; 88237; 88264; 88280 ×2; P9016; 36415; 85097; 88305; 88311; 88313; 88341; 88342; 99284

== ENCOUNTER 2019-07-24 12:32 | Emergency (ER) | payer MEDICARE, OTHER ==
[2019-07-24 13:09] LABS: #Basophils 0.1 thou/uL (0.0-0.2); #Eosinphils 0.4 thou/uL (0.0-0.7); #Lymphocytes 1.7 thou/uL (1.20-3.40); #Monocytes 0.7 thou/uL (0.11-0.59); #Neutrophils 9.8 thou/uL (1.40-6.50); %Basophils 0.4 % (0.0-1.0); %Eosinophils 3.1 % (0.0-10.0); %Lymphocytes 13.7 % (21.0-51.0); %Monocytes 5.2 % (0.0-10.0); %Neutrophils 77.6 % (42.0-75.0); Hemoglobin 7.2 g/dL (14.0-18.0); Mean Corpuscular HGB CONC 34.9 g/dL (32.0-36.0); Mean Corpuscular Hemoglobin 31.7 pg (27.0-31.0); Mean Corpuscular Volume 90.8 fL (78.0-98.0); Mean Platelet Volume 7.8 fL (7.4-10.4); Platelet Count 412 thou/uL (130-400); RBC Distribution Width 12.9 % (11.5-14.5); Red Blood Cell (RBC) Count 2.28 mill/uL (4.70-6.10); White Blood Cell (WBC) Count 12.6 thou/uL (4.8-10.8)
[2019-07-24 13:14] LABS: PTT 28.1 SEC (22.9-36.1)
[2019-07-24 13:15] LABS: INR-International Normal Ratio 1.2; Prothrombin Time 14.7 SEC (12.0-14.7)
[2019-07-24 13:32] LABS: ALT (SGPT) 18 U/L (8-55); AST (SGOT) 11 U/L (5-34); Alkaline Phosphatase 80 U/L (40-110); Anion Gap 15 mmol/L (10-20); BUN (Urea Nitrogen) 19 mg/dL (8.4-25.7); Bilirubin, Total 1.1 mg/dL (0.2-1.2); Calc. Creatinine Clearance 0 mL/min (70-130); Calcium 9.2 mg/dL (7.8-10.44); Carbon Dioxide 23 mmol/L (23-31); Chloride 106 mmol/L (98-107); Estimated GFR-MDRD 83; Globulin 2.6 g/dL (2.4-3.5); Glucose 220 mg/dL (83-110); Potassium 4.1 mmol/L (3.5-5.1); Protein, Total 6.6 g/dL (5.8-8.1); Sodium 140 mmol/L (136-145)
== END 2019-07-24 18:30 | disposition home or self-care (01) ==
LOC: ERS 12:32
DX: D61.9 Aplastic anemia, unspecified (principal); E11.9 Type 2 diabetes mellitus without complications; I10 Essential (primary) hypertension; Z79.899 Other long term (current) drug therapy
CPT/HCPCS: 36430; 80053; 85025; 85610; 85730; 86850; 86900; 86901; 86920; P9016

== ENCOUNTER 2019-08-08 10:27 | Outpatient (CLI) | payer MEDICARE, OTHER ==
--- NOTE | 2019-08-08 12:06 | CT ---
CT OF THE CHEST WITH IV CONTRAST INDICATION: History of neoplasm of the thymus; chronic anemia COMPARISON: CT of the thorax dated February 01, 2019 FINDINGS: CHEST: Lungs: There is a sub-4 mm pulmonary nodule present within the right middle lobe on image 36 of serie s 3. There is a 6 mm pulmonary nodule in the left lower lobe on image 47 of series 3. There is a 3 mm pulmonary nodule in the left lower lobe on image 41 of series 3. Pleural space: There are small bilateral pleural effusions, right greater than left with bibasilar a telectasis Mediastinum: There is postsurgical change of a prior CABG. No enlarged soft tissue mass is seen withi n the anterior mediastinum. No pathologically enlarged lymph node is evident within the mediastinal, hilar or axillary regions. There is prominent coronary artery and thoracic aortic calcif ications. Upper abdomen:Small hypodensities seen within the right hepatic lobe, adjacent to the falciform ligam ent, image 6 of series 2 measuring 8.5 mm. An additional 5 mm hypodensity seen within the superior left hepatic lobe on image 51 of series 2. Adrenal glands and pancreas appear within normal limits. Osseous structures: No acute osseous abnormality. No destructive osteolytic or osteoblastic lesion i s identified. There is scattered degenerative and osteoarthritic changes. Soft tissues:Normal. IMPRESSION: 1. No evidence of an abnormal soft tissue mass within the mediastinum. No evidence suggest recurrent disease or metastatic disease. 2. Very tiny bilateral nodules. Short-term follow-up in 6 months is recommended document stability. 3. Small bilateral pleural effusions with bibasilar atelectasis. 4. Resolution of the extensive subcutaneous emphysema, pneumomediastinum and small left pneumothorax identified on the prior CT of the chest.
[2019-08-08] MEDS ORDERED: Iopamidol 370 76% 100 ML VIAL ONE (15:12)
== END 2019-08-08 10:28 | disposition home or self-care (01) ==
LOC: CT 10:27
PROVIDERS: ATTEND Internal Medicine Hematology & Oncology
DX: D60.9 Acquired pure red cell aplasia, unspecified (principal); D15.0 Benign neoplasm of thymus; R91.8 Other nonspecific abnormal finding of lung field; J90 Pleural effusion, not elsewhere classified; J98.11 Atelectasis; J43.9 Emphysema, unspecified; J93.9 Pneumothorax, unspecified
CPT/HCPCS: 71260; Q9967

== ENCOUNTER 2019-08-08 11:26 | Emergency (ER) | payer MEDICARE, OTHER ==
[2019-08-08 12:24] LABS: #Eosinphils 0.3 thou/uL (0.0-0.7); #Lymphocytes 1.8 thou/uL (1.20-3.40); #Monocytes 0.7 thou/uL (0.11-0.59); #Neutrophils 8.2 thou/uL (1.40-6.50); %Basophils 0.4 % (0.0-1.0); %Lymphocytes 16.1 % (21.0-51.0); %Monocytes 6.3 % (0.0-10.0); %Neutrophils 74.3 % (42.0-75.0); Hemoglobin 6.2 g/dL (14.0-18.0); Mean Corpuscular HGB CONC 34.7 g/dL (32.0-36.0); Mean Corpuscular Hemoglobin 31.1 pg (27.0-31.0); Mean Corpuscular Volume 89.5 fL (78.0-98.0); Mean Platelet Volume 7.3 fL (7.4-10.4); Platelet Count 340 thou/uL (130-400); RBC Distribution Width 12.4 % (11.5-14.5); Red Blood Cell (RBC) Count 1.99 mill/uL (4.70-6.10); White Blood Cell (WBC) Count 11.1 thou/uL (4.8-10.8)
[2019-08-08 12:48] LABS: ALT (SGPT) 13 U/L (8-55); AST (SGOT) 9 U/L (5-34); Albumin 3.8 g/dL (3.4-4.8); Alkaline Phosphatase 79 U/L (40-110); Anion Gap 13 mmol/L (10-20); BUN (Urea Nitrogen) 13 mg/dL (8.4-25.7); Bilirubin, Total 0.9 mg/dL (0.2-1.2); Calc. Creatinine Clearance 0 mL/min (70-130); Calcium 9.1 mg/dL (7.8-10.44); Carbon Dioxide 24 mmol/L (23-31); Chloride 108 mmol/L (98-107); Estimated GFR-MDRD 83; Globulin 2.3 g/dL (2.4-3.5); Glucose 157 mg/dL (83-110); Potassium 3.6 mmol/L (3.5-5.1); Protein, Total 6.1 g/dL (5.8-8.1); Sodium 141 mmol/L (136-145)
[2019-08-08] MEDS ORDERED: Ciprofloxacin 500 MG TAB ONE (13:07)
== END 2019-08-08 17:25 | disposition home or self-care (01) ==
LOC: ERS 11:26
DX: D64.9 Anemia, unspecified (principal); I25.10 Atherosclerotic heart disease of native coronary artery without angina pectoris; E11.9 Type 2 diabetes mellitus without complications; I10 Essential (primary) hypertension; Z79.84 Long term (current) use of oral hypoglycemic drugs; Z79.82 Long term (current) use of aspirin
CPT/HCPCS: 36430; 80053; 85025; 86850; 86900; 86901; 86920; P9016; 99291

== ENCOUNTER 2019-09-01 06:42 | Emergency (ER) | payer MEDICARE, OTHER ==
[2019-09-01 07:12] LABS: #Eosinphils 0.4 thou/uL (0.0-0.7); #Lymphocytes 2.2 thou/uL (1.20-3.40); #Monocytes 0.8 thou/uL (0.11-0.59); #Neutrophils 7.5 thou/uL (1.40-6.50); %Basophils 0.4 % (0.0-1.0); %Eosinophils 3.5 % (0.0-10.0); %Lymphocytes 20.1 % (21.0-51.0); Hemoglobin 6.2 g/dL (14.0-18.0); Mean Corpuscular HGB CONC 33.6 g/dL (32.0-36.0); Mean Corpuscular Hemoglobin 29.8 pg (27.0-31.0); Mean Corpuscular Volume 88.5 fL (78.0-98.0); Mean Platelet Volume 7.9 fL (7.4-10.4); Platelet Count 322 thou/uL (130-400); RBC Distribution Width 12.1 % (11.5-14.5); Red Blood Cell (RBC) Count 2.07 mill/uL (4.70-6.10); White Blood Cell (WBC) Count 10.9 thou/uL (4.8-10.8)
[2019-09-01 07:27] LABS: ALT (SGPT) 32 U/L (8-55); AST (SGOT) 20 U/L (5-34); Albumin 3.9 g/dL (3.4-4.8); Alkaline Phosphatase 85 U/L (40-110); Anion Gap 13 mmol/L (10-20); BUN (Urea Nitrogen) 14 mg/dL (8.4-25.7); Bilirubin, Total 1.1 mg/dL (0.2-1.2); Calc. Creatinine Clearance 0 mL/min (70-130); Calcium 8.8 mg/dL (7.8-10.44); Carbon Dioxide 25 mmol/L (23-31); Chloride 109 mmol/L (98-107); Estimated GFR-MDRD 89; Glucose 192 mg/dL (83-110); Potassium 4.4 mmol/L (3.5-5.1); Protein, Total 5.9 g/dL (5.8-8.1); Sodium 143 mmol/L (136-145)
[2019-09-01] MEDS ORDERED: Furosemide 40 MG/4 ML VIAL ONE (07:42)
[2019-09-01 07:49] LABS: CKMB 2.5 ng/mL (0-6.6)
[2019-09-01] MEDS ORDERED: Acetaminophen 500 MG TAB ONE (09:57)
[2019-09-01 10:21] LABS: Troponin I 0.186 ng/mL (< 0.028)
== END 2019-09-01 10:53 | disposition home or self-care (01) ==
LOC: ERS 06:42
DX: D64.9 Anemia, unspecified (principal); E11.9 Type 2 diabetes mellitus without complications; I25.10 Atherosclerotic heart disease of native coronary artery without angina pectoris; I10 Essential (primary) hypertension; Z79.82 Long term (current) use of aspirin
CPT/HCPCS: 36430; 80053; 82553; 83880; 84484 ×2; 85025; 86850; 86900; 86901; 86920; 93005; P9016; 36415; 96374; 99292; J1940

== ENCOUNTER 2019-09-11 10:14 | Day surgery (SDC) | payer MEDICARE, OTHER ==
[2019-09-11] MEDS ORDERED: diphenhydrAMINE 25 MG CAP PO PRN (10:20)
[2019-09-11] MEDS ORDERED: Acetaminophen 500 MG TAB PO PRN (10:20)
[2019-09-11] MEDS ORDERED: Sodium Chloride 0.9% 20 ML ONE (11:21)
[2019-09-11 12:39] VITALS: TEMP 97.6
[2019-09-11 14:02] VITALS: BP 149/65
== END 2019-09-11 14:03 | disposition home or self-care (01) ==
LOC: ONC/OP 10:14
PROVIDERS: ATTEND Internal Medicine Hematology & Oncology
PROC: 30233N1 Transfusion of Nonautologous Red Blood Cells into Peripheral Vein, Percutaneous Approach (ICD-10-PCS; principal; 2019-09-11)
DX: D64.9 Anemia, unspecified (principal); D69.6 Thrombocytopenia, unspecified
CPT/HCPCS: 36430; 80053; 86850; 86900; 86901; P9016; Q0163

== ENCOUNTER 2019-10-03 12:09 | Emergency (ER) | payer MEDICARE, OTHER ==
[2019-10-03 12:54] LABS: #Basophils 0.1 thou/uL (0.0-0.2); #Eosinphils 0.2 thou/uL (0.0-0.7); #Lymphocytes 1.6 thou/uL (1.20-3.40); #Monocytes 0.7 thou/uL (0.11-0.59); #Neutrophils 9.2 thou/uL (1.40-6.50); %Basophils 0.6 % (0.0-1.0); %Eosinophils 1.9 % (0.0-10.0); %Lymphocytes 13.5 % (21.0-51.0); %Monocytes 6.3 % (0.0-10.0); %Neutrophils 77.8 % (42.0-75.0); Hemoglobin 6.5 g/dL (14.0-18.0); Mean Corpuscular HGB CONC 33.5 g/dL (32.0-36.0); Mean Corpuscular Hemoglobin 29.3 pg (27.0-31.0); Mean Corpuscular Volume 87.4 fL (78.0-98.0); Mean Platelet Volume 8.3 fL (7.4-10.4); Platelet Count 389 thou/uL (130-400); RBC Distribution Width 12.4 % (11.5-14.5); Red Blood Cell (RBC) Count 2.22 mill/uL (4.70-6.10); White Blood Cell (WBC) Count 11.8 thou/uL (4.8-10.8)
[2019-10-03 13:00] LABS: INR-International Normal Ratio 1.4; PTT 34.3 SEC (22.9-36.1); Prothrombin Time 16.9 SEC (12.0-14.7)
[2019-10-03 13:19] LABS: ALT (SGPT) 46 U/L (8-55); AST (SGOT) 28 U/L (5-34); Albumin 3.8 g/dL (3.4-4.8); Alkaline Phosphatase 91 U/L (40-110); Anion Gap 14 mmol/L (10-20); BUN (Urea Nitrogen) 17 mg/dL (8.4-25.7); Bilirubin, Total 1.9 mg/dL (0.2-1.2); Calc. Creatinine Clearance 0 mL/min (70-130); Calcium 8.9 mg/dL (7.8-10.44); Carbon Dioxide 25 mmol/L (23-31); Chloride 108 mmol/L (98-107); Estimated GFR-MDRD 87; Globulin 2.6 g/dL (2.4-3.5); Glucose 200 mg/dL (83-110); Potassium 3.8 mmol/L (3.5-5.1); Protein, Total 6.4 g/dL (5.8-8.1); Sodium 143 mmol/L (136-145)
== END 2019-10-03 15:28 | disposition left against medical advice (07) ==
LOC: ERS 12:09
DX: D64.9 Anemia, unspecified (principal); R07.9 Chest pain, unspecified; E11.9 Type 2 diabetes mellitus without complications; I25.10 Atherosclerotic heart disease of native coronary artery without angina pectoris; Z79.82 Long term (current) use of aspirin; Z79.899 Other long term (current) drug therapy
CPT/HCPCS: 36430; 80053; 82553; 84484; 85025; 85610; 85730; 86850; 86900; 86901; 86920; 93005; 99285; P9016

== ENCOUNTER 2019-10-11 14:29 | Emergency (ER) | payer MEDICARE, OTHER ==
[2019-10-11 15:02] LABS: #Basophils 0.1 thou/uL (0.0-0.2); #Eosinphils 0.2 thou/uL (0.0-0.7); #Lymphocytes 1.8 thou/uL (1.20-3.40); #Monocytes 0.8 thou/uL (0.11-0.59); #Neutrophils 7.4 thou/uL (1.40-6.50); %Basophils 0.5 % (0.0-1.0); %Eosinophils 2.3 % (0.0-10.0); %Lymphocytes 17.8 % (21.0-51.0); %Monocytes 7.5 % (0.0-10.0); %Neutrophils 71.9 % (42.0-75.0); Hemoglobin 6.1 g/dL (14.0-18.0); Mean Corpuscular HGB CONC 33.5 g/dL (32.0-36.0); Mean Corpuscular Hemoglobin 29.5 pg (27.0-31.0); Mean Platelet Volume 8.6 fL (7.4-10.4); Platelet Count 322 thou/uL (130-400); RBC Distribution Width 12.7 % (11.5-14.5); Red Blood Cell (RBC) Count 2.07 mill/uL (4.70-6.10); White Blood Cell (WBC) Count 10.2 thou/uL (4.8-10.8)
[2019-10-11 15:20] LABS: ALT (SGPT) 25 U/L (8-55); AST (SGOT) 10 U/L (5-34); Albumin 3.5 g/dL (3.4-4.8); Alkaline Phosphatase 94 U/L (40-110); Anion Gap 9 mmol/L (10-20); BUN (Urea Nitrogen) 12 mg/dL (8.4-25.7); Bilirubin, Total 1.3 mg/dL (0.2-1.2); Calc. Creatinine Clearance 0 mL/min (70-130); Calcium 8.6 mg/dL (7.8-10.44); Carbon Dioxide 29 mmol/L (23-31); Chloride 105 mmol/L (98-107); Estimated GFR-MDRD 82; Globulin 2.4 g/dL (2.4-3.5); Glucose 226 mg/dL (83-110); Potassium 3.4 mmol/L (3.5-5.1); Protein, Total 5.9 g/dL (5.8-8.1); Sodium 140 mmol/L (136-145)
== END 2019-10-11 20:06 | disposition home or self-care (01) ==
LOC: ERS 14:29
DX: D64.9 Anemia, unspecified (principal); I25.10 Atherosclerotic heart disease of native coronary artery without angina pectoris; E11.9 Type 2 diabetes mellitus without complications; I10 Essential (primary) hypertension
CPT/HCPCS: 36430; 80053; 85025; 86850; 86900; 86901; 86920; 93005; 94760; P9016; 36415

== ENCOUNTER 2019-10-15 11:44 | Emergency (ER) | payer MEDICARE, OTHER ==
[2019-10-15 13:13] LABS: #Eosinphils 0.2 thou/uL (0.0-0.7); #Lymphocytes 1.6 thou/uL (1.20-3.40); #Monocytes 1.2 thou/uL (0.11-0.59); #Neutrophils 11.3 thou/uL (1.40-6.50); %Basophils 0.2 % (0.0-1.0); %Eosinophils 1.1 % (0.0-10.0); %Lymphocytes 10.9 % (21.0-51.0); %Monocytes 8.4 % (0.0-10.0); %Neutrophils 79.4 % (42.0-75.0); Hemoglobin 8.2 g/dL (14.0-18.0); Mean Corpuscular HGB CONC 32.1 g/dL (32.0-36.0); Mean Corpuscular Volume 90.4 fL (78.0-98.0); Mean Platelet Volume 8.6 fL (7.4-10.4); Platelet Count 288 thou/uL (130-400); RBC Distribution Width 13.5 % (11.5-14.5); Red Blood Cell (RBC) Count 2.83 mill/uL (4.70-6.10); White Blood Cell (WBC) Count 14.2 thou/uL (4.8-10.8)
[2019-10-15 13:27] LABS: ALT (SGPT) 24 U/L (8-55); AST (SGOT) 10 U/L (5-34); Albumin 3.6 g/dL (3.4-4.8); Alkaline Phosphatase 96 U/L (40-110); Anion Gap 13 mmol/L (10-20); BUN (Urea Nitrogen) 13 mg/dL (8.4-25.7); Bilirubin, Total 1.4 mg/dL (0.2-1.2); Calc. Creatinine Clearance 0 mL/min (70-130); Calcium 8.6 mg/dL (7.8-10.44); Carbon Dioxide 30 mmol/L (23-31); Chloride 100 mmol/L (98-107); Estimated GFR-MDRD 78; Globulin 2.6 g/dL (2.4-3.5); Glucose 221 mg/dL (83-110); Potassium 3.2 mmol/L (3.5-5.1); Protein, Total 6.2 g/dL (5.8-8.1); Sodium 140 mmol/L (136-145)
[2019-10-15 17:02] LABS: Bacteria/HPF 3+ HPF (None Seen); Bilirubin Negative (Negative); Blood, Urine 1+ (Negative); Clarity Extra Turbid (Clear); Glucose, Urine (Dipstick) Normal (Negative); Leukocyte 500 Leu/uL (Negative); Nitrite Negative (Negative); Protein, Urine (Dipstick) 70 mg/dL (Neg-Trace); Squamous Epithelial None Seen HPF (0-3); Urobilinogen Normal mg/dL (Less than 2); WBC/HPF Greater than 50 HPF (0-3)
== END 2019-10-15 16:49 | disposition home or self-care (01) ==
LOC: ERS 11:44
DX: D64.9 Anemia, unspecified (principal); I25.10 Atherosclerotic heart disease of native coronary artery without angina pectoris; E11.9 Type 2 diabetes mellitus without complications; I10 Essential (primary) hypertension
CPT/HCPCS: 36415; 80053; 81003; 81015; 82274; 85025; 86850; 86900; 86901; 99284

== ENCOUNTER 2019-10-29 14:51 | Emergency (ER) | payer MEDICARE, OTHER ==
[2019-10-29 15:26] LABS: #Eosinphils 0.3 thou/uL (0.0-0.7); #Monocytes 0.8 thou/uL (0.11-0.59); #Neutrophils 7.6 thou/uL (1.40-6.50); %Basophils 0.1 % (0.0-1.0); %Lymphocytes 18.7 % (21.0-51.0); %Monocytes 7.5 % (0.0-10.0); %Neutrophils 70.7 % (42.0-75.0); Hemoglobin 5.8 g/dL (14.0-18.0); Mean Corpuscular HGB CONC 33.9 g/dL (32.0-36.0); Mean Corpuscular Hemoglobin 30.7 pg (27.0-31.0); Mean Corpuscular Volume 90.6 fL (78.0-98.0); Mean Platelet Volume 7.8 fL (7.4-10.4); Platelet Count 434 thou/uL (130-400); RBC Distribution Width 13.5 % (11.5-14.5); White Blood Cell (WBC) Count 10.7 thou/uL (4.8-10.8)
[2019-10-29 15:42] LABS: ALT (SGPT) 33 U/L (8-55); AST (SGOT) 14 U/L (5-34); Albumin 3.5 g/dL (3.4-4.8); Alkaline Phosphatase 93 U/L (40-110); Anion Gap 11 mmol/L (10-20); BUN (Urea Nitrogen) 17 mg/dL (8.4-25.7); Calc. Creatinine Clearance 0 mL/min (70-130); Calcium 8.9 mg/dL (7.8-10.44); Carbon Dioxide 28 mmol/L (23-31); Chloride 105 mmol/L (98-107); Estimated GFR-MDRD 86; Globulin 2.6 g/dL (2.4-3.5); Glucose 176 mg/dL (83-110); Potassium 4.8 mmol/L (3.5-5.1); Protein, Total 6.1 g/dL (5.8-8.1); Sodium 139 mmol/L (136-145)
[2019-10-29] MEDS ORDERED: Bacitracin 1 PK ONE (17:23)
== END 2019-10-29 20:55 | disposition home or self-care (01) ==
LOC: ERS 14:51
DX: K92.2 Gastrointestinal hemorrhage, unspecified (principal); D62 Acute posthemorrhagic anemia; I25.10 Atherosclerotic heart disease of native coronary artery without angina pectoris; E11.9 Type 2 diabetes mellitus without complications; I10 Essential (primary) hypertension; Z79.899 Other long term (current) drug therapy; Z79.01 Long term (current) use of anticoagulants
CPT/HCPCS: 36430; 80053; 85025; 86850; 86900; 86901; 86920; P9016; 36415; 99284

== ENCOUNTER 2019-11-19 11:18 | Emergency (ER) | payer MEDICARE, OTHER ==
[2019-11-19 12:14] LABS: %Lymphocytes 15.6 % (21.0-51.0); %Neutrophils 73.1 % (42.0-75.0); Mean Corpuscular HGB CONC 33.3 g/dL (32.0-36.0); Mean Corpuscular Hemoglobin 30.3 pg (27.0-31.0); Mean Platelet Volume 8.3 fL (7.4-10.4); Platelet Count 409 thou/uL (130-400); RBC Distribution Width 13.8 % (11.5-14.5); Red Blood Cell (RBC) Count 1.98 mill/uL (4.70-6.10); White Blood Cell (WBC) Count 13.5 thou/uL (4.8-10.8)
[2019-11-19 12:15] LABS: #Basophils 0.1 thou/uL (0.0-0.2); #Eosinphils 0.5 thou/uL (0.0-0.7); #Lymphocytes 2.1 thou/uL (1.20-3.40); #Monocytes 0.9 thou/uL (0.11-0.59); #Neutrophils 9.9 thou/uL (1.40-6.50); %Basophils 0.5 % (0.0-1.0); %Eosinophils 3.9 % (0.0-10.0); %Monocytes 6.9 % (0.0-10.0)
--- NOTE | 2019-11-19 12:25 | RAD ---
AP CHEST: Date: 11/19/2019 HISTORY: Weakness. COMPARISON: 09/14/19. FINDINGS/IMPRESSION: Mild cardiomegaly with postop sternotomy change again noted. Lung tillman appear clear of infiltrate. No acute finding or significant interval change noted. POS: [facility]
[2019-11-19 12:38] LABS: ALT (SGPT) 28 U/L (8-55); AST (SGOT) 15 U/L (5-34); Albumin 3.9 g/dL (3.4-4.8); Alkaline Phosphatase 114 U/L (40-110); Anion Gap 17 mmol/L (10-20); BUN (Urea Nitrogen) 17 mg/dL (8.4-25.7); Bilirubin, Total 0.8 mg/dL (0.2-1.2); Calc. Creatinine Clearance 0 mL/min (70-130); Calcium 9.2 mg/dL (7.8-10.44); Carbon Dioxide 21 mmol/L (23-31); Chloride 107 mmol/L (98-107); Estimated GFR-MDRD 80; Globulin 2.6 g/dL (2.4-3.5); Glucose 201 mg/dL (83-110); Potassium 4.5 mmol/L (3.5-5.1); Protein, Total 6.5 g/dL (5.8-8.1); Sodium 140 mmol/L (136-145)
[2019-11-19] MEDS ORDERED: cefTRIAXone\\ROCEPHIN 1 GM VIAL ONE (13:46)
[2019-11-19] MEDS ORDERED: Morphine 4 MG/ML VIAL ONE (14:03)
[2019-11-19 16:17] LABS: Bacteria/HPF 4+ HPF (None Seen); Bilirubin Negative (Negative); Blood, Urine Trace (Negative); Clarity Turbid (Clear); Glucose, Urine (Dipstick) Normal (Negative); Leukocyte 500 Leu/uL (Negative); Nitrite 1+ (Negative); Protein, Urine (Dipstick) 20 mg/dL (Neg-Trace); Squamous Epithelial 0-3 HPF (0-3); Urobilinogen Normal mg/dL (Less than 2); WBC/HPF Greater than 50 HPF (0-3)
== END 2019-11-19 19:15 | disposition left against medical advice (07) ==
LOC: ERS 11:18
DX: L03.115 Cellulitis of right lower limb (principal); L97.919 Non-pressure chronic ulcer of unspecified part of right lower leg with unspecified severity; D64.9 Anemia, unspecified; E11.9 Type 2 diabetes mellitus without complications; I25.10 Atherosclerotic heart disease of native coronary artery without angina pectoris; I10 Essential (primary) hypertension; Z79.899 Other long term (current) drug therapy
CPT/HCPCS: 36430; 71045; 80053; 83880; 84484; 85025; 86850; 86900; 86901; 86920; 93005; P9016; 81003; 81015; 96365; 96375; J0696; J2270

== ENCOUNTER 2019-11-30 14:05 | Emergency (ER) | payer MEDICARE, OTHER ==
[2019-11-30 15:28] LABS: #Basophils 0.1 thou/uL (0.0-0.2); #Eosinphils 0.4 thou/uL (0.0-0.7); #Monocytes 0.8 thou/uL (0.11-0.59); #Neutrophils 8.4 thou/uL (1.40-6.50); %Basophils 0.7 % (0.0-1.0); %Eosinophils 3.6 % (0.0-10.0); %Lymphocytes 16.8 % (21.0-51.0); %Monocytes 6.8 % (0.0-10.0); %Neutrophils 72.1 % (42.0-75.0); Hemoglobin 6.1 g/dL (14.0-18.0); Mean Corpuscular HGB CONC 34.4 g/dL (32.0-36.0); Mean Corpuscular Hemoglobin 31.4 pg (27.0-31.0); Mean Corpuscular Volume 91.5 fL (78.0-98.0); Mean Platelet Volume 8.1 fL (7.4-10.4); Platelet Count 394 thou/uL (130-400); Red Blood Cell (RBC) Count 1.94 mill/uL (4.70-6.10); White Blood Cell (WBC) Count 11.6 thou/uL (4.8-10.8)
[2019-11-30 15:52] LABS: ALT (SGPT) 57 U/L (8-55); AST (SGOT) 19 U/L (5-34); Albumin 3.8 g/dL (3.4-4.8); Alkaline Phosphatase 165 U/L (40-110); Anion Gap 13 mmol/L (10-20); BUN (Urea Nitrogen) 22 mg/dL (8.4-25.7); Bilirubin, Total 0.5 mg/dL (0.2-1.2); Calc. Creatinine Clearance 0 mL/min (70-130); Calcium 9.1 mg/dL (7.8-10.44); Carbon Dioxide 24 mmol/L (23-31); Chloride 102 mmol/L (98-107); Estimated GFR-MDRD 70; Globulin 3.1 g/dL (2.4-3.5); Glucose 324 mg/dL (83-110); Potassium 4.1 mmol/L (3.5-5.1); Protein, Total 6.9 g/dL (5.8-8.1); Sodium 135 mmol/L (136-145)
--- NOTE | 2019-11-30 16:17 | RAD ---
Chest AP view INDICATION: Chest pain COMPARISON: November 19, 2019 FINDINGS: Lungs: The lungs are clear Cardiac silhouette: Stable moderate cardiomegaly Pulmonary vasculature: Mild pulmonary vascular congestion with interstitial edema Pleural spaces: Tiny pleural effusions Upper abdomen: No abnormality seen. Osseous structures: Stable midline sternotomy changes. Stable ACDF Additional findings: None. IMPRESSION: Mild CHF
[2019-11-30 19:13] LABS: Lactic Acid 2.7 mmol/L (0.5-2.2)
== END 2019-11-30 22:44 | disposition home or self-care (01) ==
LOC: ERS 14:05
DX: D64.9 Anemia, unspecified (principal); I25.10 Atherosclerotic heart disease of native coronary artery without angina pectoris; E11.9 Type 2 diabetes mellitus without complications; I10 Essential (primary) hypertension; Z79.84 Long term (current) use of oral hypoglycemic drugs; Z79.899 Other long term (current) drug therapy
CPT/HCPCS: 36430; 71045; 80053; 83605; 84484; 85025; 86850; 86900; 86901; 86920; 93005; 99285; P9016; 36415

== ENCOUNTER 2019-12-17 12:05 | Emergency (ER) | payer MEDICARE, OTHER ==
[2019-12-17 12:48] LABS: #Eosinphils 0.5 thou/uL (0.0-0.7); #Lymphocytes 1.5 thou/uL (1.20-3.40); #Monocytes 0.8 thou/uL (0.11-0.59); #Neutrophils 7.4 thou/uL (1.40-6.50); %Basophils 0.2 % (0.0-1.0); %Eosinophils 4.8 % (0.0-10.0); %Lymphocytes 14.7 % (21.0-51.0); %Monocytes 7.8 % (0.0-10.0); %Neutrophils 72.5 % (42.0-75.0); Hemoglobin 6.1 g/dL (14.0-18.0); Mean Corpuscular Volume 91.1 fL (78.0-98.0); Mean Platelet Volume 7.8 fL (7.4-10.4); Platelet Count 390 thou/uL (130-400); RBC Distribution Width 13.3 % (11.5-14.5); Red Blood Cell (RBC) Count 1.97 mill/uL (4.70-6.10); White Blood Cell (WBC) Count 10.2 thou/uL (4.8-10.8)
[2019-12-17 13:02] LABS: ALT (SGPT) 28 U/L (8-55); AST (SGOT) 13 U/L (5-34); Albumin 3.6 g/dL (3.4-4.8); Alkaline Phosphatase 117 U/L (40-110); Anion Gap 11 mmol/L (10-20); BUN (Urea Nitrogen) 17 mg/dL (8.4-25.7); Bilirubin, Total 0.5 mg/dL (0.2-1.2); Calc. Creatinine Clearance 0 mL/min (70-130); Calcium 8.9 mg/dL (7.8-10.44); Carbon Dioxide 26 mmol/L (23-31); Chloride 103 mmol/L (98-107); Estimated GFR-MDRD 86; Globulin 2.7 g/dL (2.4-3.5); Glucose 310 mg/dL (83-110); Potassium 4.2 mmol/L (3.5-5.1); Protein, Total 6.3 g/dL (5.8-8.1); Sodium 136 mmol/L (136-145)
[2019-12-17] MEDS ORDERED: diphenhydrAMINE 50 MG/ML VIAL ONE (16:40)
[2019-12-17] MEDS ORDERED: Acetaminophen 500 MG TAB ONE (16:40)
== END 2019-12-17 18:32 | disposition left against medical advice (07) ==
LOC: ERS 12:05
DX: D64.9 Anemia, unspecified (principal); I25.10 Atherosclerotic heart disease of native coronary artery without angina pectoris; E11.9 Type 2 diabetes mellitus without complications; E78.5 Hyperlipidemia, unspecified; I10 Essential (primary) hypertension; Z79.899 Other long term (current) drug therapy
CPT/HCPCS: 36430; 80053; 85025; 86850; 86900; 86901; 86920; 96374; 99284; P9016; 36415; J1200

== ENCOUNTER 2019-12-30 16:43 | Emergency (ER) | payer MEDICARE, OTHER ==
[2019-12-30 18:05] LABS: #Basophils 0.1 thou/uL (0.0-0.2); #Eosinphils 0.3 thou/uL (0.0-0.7); #Lymphocytes 2.5 thou/uL (1.20-3.40); #Neutrophils 10.4 thou/uL (1.40-6.50); %Basophils 0.4 % (0.0-1.0); %Lymphocytes 17.3 % (21.0-51.0); %Monocytes 7.1 % (0.0-10.0); %Neutrophils 73.2 % (42.0-75.0); Hemoglobin 5.7 g/dL (14.0-18.0); Mean Corpuscular HGB CONC 34.9 g/dL (32.0-36.0); Mean Corpuscular Hemoglobin 31.3 pg (27.0-31.0); Mean Corpuscular Volume 89.7 fL (78.0-98.0); Mean Platelet Volume 7.9 fL (7.4-10.4); Platelet Count 427 thou/uL (130-400); RBC Distribution Width 12.7 % (11.5-14.5); Red Blood Cell (RBC) Count 1.81 mill/uL (4.70-6.10); White Blood Cell (WBC) Count 14.2 thou/uL (4.8-10.8)
[2019-12-30 18:13] LABS: ALT (SGPT) 38 U/L (8-55); AST (SGOT) 17 U/L (5-34); Albumin 3.6 g/dL (3.4-4.8); Alkaline Phosphatase 117 U/L (40-110); Anion Gap 17 mmol/L (10-20); BUN (Urea Nitrogen) 18 mg/dL (8.4-25.7); Calc. Creatinine Clearance 0 mL/min (70-130); Calcium 9.1 mg/dL (7.8-10.44); Carbon Dioxide 25 mmol/L (23-31); Chloride 99 mmol/L (98-107); Estimated GFR-MDRD 75; Globulin 2.5 g/dL (2.4-3.5); Glucose 316 mg/dL (83-110); Potassium 3.6 mmol/L (3.5-5.1); Protein, Total 6.1 g/dL (5.8-8.1); Sodium 137 mmol/L (136-145)
[2019-12-30] MEDS ORDERED: Acetaminophen 500 MG TAB ONE (21:37)
== END 2019-12-31 00:03 | disposition home or self-care (01) ==
LOC: ERS 16:43
DX: D64.9 Anemia, unspecified (principal); I10 Essential (primary) hypertension; E11.9 Type 2 diabetes mellitus without complications; I25.10 Atherosclerotic heart disease of native coronary artery without angina pectoris; Z79.899 Other long term (current) drug therapy
CPT/HCPCS: 36430; 80053; 84484; 85025; 86850; 86900; 86901; 86920; 93005; P9016

== ENCOUNTER 2020-01-18 09:40 | Emergency (ER) | payer MEDICARE, OTHER ==
[2020-01-18 10:08] LABS: #Basophils 0.1 thou/uL (0.0-0.2); #Eosinphils 0.5 thou/uL (0.0-0.7); #Lymphocytes 2.1 thou/uL (1.20-3.40); #Monocytes 0.9 thou/uL (0.11-0.59); #Neutrophils 10.5 thou/uL (1.40-6.50); %Basophils 0.5 % (0.0-1.0); %Eosinophils 3.6 % (0.0-10.0); %Lymphocytes 14.6 % (21.0-51.0); %Monocytes 6.7 % (0.0-10.0); %Neutrophils 74.6 % (42.0-75.0); Mean Corpuscular HGB CONC 35.6 g/dL (32.0-36.0); Mean Corpuscular Hemoglobin 31.7 pg (27.0-31.0); Mean Corpuscular Volume 89.1 fL (78.0-98.0); Mean Platelet Volume 7.9 fL (7.4-10.4); Platelet Count 419 thou/uL (130-400); RBC Distribution Width 11.9 % (11.5-14.5); Red Blood Cell (RBC) Count 1.88 mill/uL (4.70-6.10)
--- NOTE | 2020-01-18 10:12 | RAD ---
Chest AP view INDICATION: Weakness and dizziness COMPARISON: November 30, 2019 FINDINGS: Lungs: Emphysematous changes stable Cardiac silhouette: Mild cardiomegaly is stable. Post-CABG change is stable Pulmonary vasculature: Normal Pleural spaces: No pleural effusion or pneumothorax is demonstrated. Upper abdomen: No abnormality seen. Osseous structures: ACDF of the lower cervical spine is stable. No acute fracture or subluxation dem onstrated. Additional findings: None. IMPRESSION: No acute cardiopulmonary abnormality.
[2020-01-18 10:23] LABS: ALT (SGPT) 31 U/L (8-55); AST (SGOT) 12 U/L (5-34); Albumin 3.5 g/dL (3.4-4.8); Alkaline Phosphatase 97 U/L (40-110); Anion Gap 15 mmol/L (10-20); BUN (Urea Nitrogen) 18 mg/dL (8.4-25.7); Bilirubin, Total 1.1 mg/dL (0.2-1.2); Calc. Creatinine Clearance 0 mL/min (70-130); Carbon Dioxide 26 mmol/L (23-31); Chloride 96 mmol/L (98-107); Estimated GFR-MDRD 70; Globulin 2.8 g/dL (2.4-3.5); Glucose 316 mg/dL (83-110); Potassium 4.2 mmol/L (3.5-5.1); Protein, Total 6.3 g/dL (5.8-8.1); Sodium 133 mmol/L (136-145)
[2020-01-18 10:32] LABS: INR-International Normal Ratio 1.2; PTT 34.7 SEC (22.9-36.1); Prothrombin Time 15.3 SEC (12.0-14.7)
--- NOTE | 2020-01-22 15:22 | EKG ---
Test Reason : WEAKNESS Blood Pressure : / mmHG Vent. Rate : 068 BPM Atrial Rate : 068 BPM P-R Int : 190 ms QRS Dur : 104 ms QT Int : 454 ms P-R-T Axes : 083 014 051 degrees QTc Int : 482 ms Normal sinus rhythm Nonspecific ST and T wave abnormality No STEMI Abnormal ECG Confirmed by DEBRA Reynolds, TANNER ([id number]), senior technical editor VASHTI DOBBS ([id number]) on 01/22/2020 3:21:58 PM Referred By: Confirmed By:TANNER RICHARDSON M.D.
== END 2020-01-18 16:07 | disposition home or self-care (01) ==
LOC: ERS 09:40
DX: D64.9 Anemia, unspecified (principal); E11.9 Type 2 diabetes mellitus without complications; I10 Essential (primary) hypertension; I25.10 Atherosclerotic heart disease of native coronary artery without angina pectoris; Z79.899 Other long term (current) drug therapy
CPT/HCPCS: 36430; 71045; 80053; 84484; 85025; 85610; 85730; 86850; 86900; 86901; 86920; 93005; 99285; P9016; 36415

== ENCOUNTER 2020-02-09 09:08 | Emergency (ER) | payer MEDICARE, OTHER ==
[2020-02-09 09:45] LABS: INR-International Normal Ratio 1.3; PTT 28.4 SEC (22.9-36.1); Prothrombin Time 15.9 sec (12.0-14.7)
[2020-02-09 09:52] LABS: #Eosinphils 0.1 thou/uL (0.0-0.7); #Lymphocytes 1.7 thou/uL (1.20-3.40); #Monocytes 1.1 thou/uL (0.11-0.59); #Neutrophils 11.9 thou/uL (1.40-6.50); %Basophils 0.1 % (0.0-1.0); %Eosinophils 0.8 % (0.0-10.0); %Lymphocytes 11.2 % (21.0-51.0); %Monocytes 7.5 % (0.0-10.0); %Neutrophils 80.4 % (42.0-75.0); Hemoglobin 4.9 g/dL (14.0-18.0); Mean Corpuscular HGB CONC 34.7 g/dL (32.0-36.0); Mean Corpuscular Hemoglobin 31.2 pg (27.0-31.0); Mean Corpuscular Volume 89.8 fL (78.0-98.0); Mean Platelet Volume 7.8 fL (7.4-10.4); Platelet Count 338 thou/uL (130-400); RBC Distribution Width 11.9 % (11.5-14.5); Red Blood Cell (RBC) Count 1.56 mill/uL (4.70-6.10); White Blood Cell (WBC) Count 14.9 thou/uL (4.8-10.8)
[2020-02-09 10:03] LABS: ALT (SGPT) 52 U/L (8-55); AST (SGOT) 16 U/L (5-34); Albumin 3.2 g/dL (3.4-4.8); Alkaline Phosphatase 92 U/L (40-110); Anion Gap 17 mmol/L (10-20); BUN (Urea Nitrogen) 21 mg/dL (8.4-25.7); Bilirubin, Total 1.1 mg/dL (0.2-1.2); Calc. Creatinine Clearance 0 mL/min (70-130); Calcium 8.2 mg/dL (7.8-10.44); Carbon Dioxide 25 mmol/L (23-31); Chloride 95 mmol/L (98-107); Estimated GFR-MDRD 58; Globulin 2.9 g/dL (2.4-3.5); Glucose 449 mg/dL (83-110); Potassium 3.6 mmol/L (3.5-5.1); Protein, Total 6.1 g/dL (5.8-8.1); Sodium 133 mmol/L (136-145)
[2020-02-09 13:20] LABS: #Eosinphils 0.1 thou/uL (0.0-0.7); #Lymphocytes 2.2 thou/uL (1.20-3.40); #Monocytes 1.2 thou/uL (0.11-0.59); #Neutrophils 10.7 thou/uL (1.40-6.50); %Eosinophils 0.6 % (0.0-10.0); %Lymphocytes 15.3 % (21.0-51.0); %Monocytes 8.7 % (0.0-10.0); %Neutrophils 75.3 % (42.0-75.0); Mean Corpuscular HGB CONC 33.9 g/dL (32.0-36.0); Mean Corpuscular Hemoglobin 30.7 pg (27.0-31.0); Mean Corpuscular Volume 90.8 fL (78.0-98.0); Mean Platelet Volume 7.7 fL (7.4-10.4); Platelet Count 320 thou/uL (130-400); RBC Distribution Width 11.8 % (11.5-14.5); Red Blood Cell (RBC) Count 1.95 mill/uL (4.70-6.10); White Blood Cell (WBC) Count 14.2 thou/uL (4.8-10.8)
[2020-02-09 16:58] LABS: #Eosinphils 0.2 thou/uL (0.0-0.7); #Monocytes 1.3 thou/uL (0.11-0.59); #Neutrophils 10.9 thou/uL (1.40-6.50); %Eosinophils 1.2 % (0.0-10.0); %Lymphocytes 13.9 % (21.0-51.0); %Monocytes 8.9 % (0.0-10.0); %Neutrophils 75.9 % (42.0-75.0); Hemoglobin 7.1 g/dL (14.0-18.0); Mean Corpuscular HGB CONC 33.7 g/dL (32.0-36.0); Mean Corpuscular Hemoglobin 29.7 pg (27.0-31.0); Mean Corpuscular Volume 88.1 fL (78.0-98.0); Mean Platelet Volume 7.4 fL (7.4-10.4); Platelet Count 317 thou/uL (130-400); RBC Distribution Width 12.1 % (11.5-14.5); Red Blood Cell (RBC) Count 2.37 mill/uL (4.70-6.10); White Blood Cell (WBC) Count 14.4 thou/uL (4.8-10.8)
--- NOTE | 2020-02-12 15:34 | EKG ---
Test Reason : Blood Pressure : / mmHG Vent. Rate : 094 BPM Atrial Rate : 094 BPM P-R Int : 182 ms QRS Dur : 112 ms QT Int : 416 ms P-R-T Axes : 072 036 106 degrees QTc Int : 520 ms Normal sinus rhythm Prolonged QT Abnormal ECG Confirmed by BARB ELIZABETH ([id number]), field map editor VASHTI DOBBS ([id number]) on 02/12/2020 3:33:51 PM Referred By: Confirmed By:BARB ELIZABETH
== END 2020-02-09 17:20 | disposition home or self-care (01) ==
LOC: ERS 09:08
DX: D64.9 Anemia, unspecified (principal); E11.9 Type 2 diabetes mellitus without complications; I10 Essential (primary) hypertension; E78.5 Hyperlipidemia, unspecified; Z79.899 Other long term (current) drug therapy
CPT/HCPCS: 36430; 80053; 82962; 83605; 84484; 85025 ×2; 85610; 85730; 86850; 86900; 86901; 86920; 93005; 99291; P9016; 36415; 36416